=== PATIENT | female | born 1950 ===

== ENCOUNTER 2017-10-24 23:51 | Inpatient (IN) | payer MEDICARE ==
--- NOTE | 2017-10-25 01:18 | ED PDOC ---
HPI: Chest Pain Chief Complaint (Nursing): Chest Pain Chief Complaint (Provider): chest pain History Per: Patient History/Exam Limitations: no limitations Onset/Duration Of Symptoms: Days (2), Waxing/Waning Current Symptoms Are (Timing): Still Present Quality: Tightness, Pressure Additional Complaint(s): 67 y/o female presents with midsternal chest pressure x 2 days. Patient states pain radiates up in to her throat, and to mid upper back. Patient reports shortness of breath secondary to tightness sensation. Patient feels like there is "gas stuck" that she cannot get out. Patient also reports right leg redness/ swelling x 1 week; states her legs are always swollen but right one is larger. Denies fever, vomiting, palpitations, changes in bowel movements, recent travel. Past Medical History Reviewed: Historical Data, Nursing Documentation, Vital Signs Vital Signs: Last Vital Signs Temp 98 F 10/30/17 00:18 Pulse 69 10/30/17 00:18 Resp 18 10/30/17 00:18 BP 153/84 H 10/30/17 00:18 Pulse Ox 96 10/30/17 00:18 - Medical History PMH: Back Problems, Fibromyalgia, GERD, Hepatitis (autoimmune), HTN, Seizures, Chronic Pain Other PMH: Lupus - Family History Family History: States: No Known Family Hx - Living Arrangements Living Arrangements: With Family - Home Medications Home Medications: Ambulatory Orders Medication Instructions Recorded Albuterol Sulfate [Proair Hfa] 2 inh INH PRN PRN 10/25/17 Cholecalciferol [Vitamin D 1000 IU] 1 cap PO DAILY 10/25/17 Ergocalciferol (Vitamin D2) 1 cap PO QWK 10/25/17 [Vitamin D2] Fluticasone/Salmeterol 250/50 2 inh INH Q12 10/25/17 [Advair Diskus 250/50] Hydroxychloroquine Sulfate 200 mg PO BID 10/25/17 [Plaquenil] Lactulose [Generlac] 30 ml PO HS 10/25/17 Levothyroxine [Synthroid] 100 mcg PO DAILY 10/25/17 Lidocaine 5% [Lidoderm] 1 patch TD PRN PRN 10/25/17 Losartan [Cozaar] 100 mg PO DAILY 10/25/17 OXcarbazepine [Trileptal] 1.5 tab PO HS 10/25/17 Oxycodone HCl [Oxycontin] 10 mg PO Q12 10/25/17 Pantoprazole Sodium [Protonix] 40 mg PO HS 10/25/17 Thiamine HCl [B-1] 100 mg PO DAILY 10/25/17 Triamterene/Hydrochlorothiazid 0.5 tab PO DAILY 10/25/17 [Maxzide 75 mg-50 mg Tablet] Zolpidem Tartrate [Ambien Cr] 12.5 mg PO HS 10/25/17 oxyCODONE [oxyCODONE Immediate 15 mg PO Q6 PRN 10/25/17 Release Tab] - Allergies Allergies/Adverse Reactions: Allergies Allergy/AdvReac Type Severity Reaction Status Date / Time aspirin Allergy RASH Verified 10/25/17 05:29 bupropion Allergy see below Verified 10/25/17 00:11 [From Wellbutrin SR] ciprofloxacin [From Cipro] Allergy RASH Verified 10/25/17 00:09 clopidogrel [From Plavix] Allergy bruising Verified 10/25/17 00:16 ibuprofen [From Motrin] Allergy RASH Verified 10/25/17 00:03 phenytoin [From Dilantin] Allergy RASH Verified 10/25/17 00:15 quetiapine [From Seroquel] AdvReac see below Verified 10/25/17 00:13 tramadol [From Ultram] AdvReac see below Verified 10/25/17 00:14 Review of Systems ROS Statement: Except As Marked, All Systems Reviewed And Found Negative ENT: Positive for: Throat Pain Cardiovascular: Positive for: Chest Pain Musculoskeletal: Positive for: Back Pain Physical Exam - Reviewed Nursing Documentation Reviewed: Yes Vital Signs Reviewed: Yes - Physical Exam Appears: Positive for: Well, Non-toxic, Uncomfortable (anxious) Head Exam: Positive for: ATRAUMATIC, NORMAL INSPECTION, NORMOCEPHALIC Skin: Positive for: Normal Color Eye Exam: Positive for: Normal appearance ENT: Positive for: Normal ENT Inspection Cardiovascular/Chest: Positive for: Regular Rate, Rhythm Respiratory: Positive for: Normal Breath Sounds Gastrointestinal/Abdominal: Positive for: Normal Exam Back: Positive for: Normal Inspection Extremity: Positive for: Normal ROM, Swelling (bilateral lower extremity edema, R>L. RLE with erythema extending from above ankle to midway up leg, warm to touch. + central scabbed abrasion noted) Neurologic/Psych: Positive for: Alert, Oriented - Laboratory Results Result Diagrams: 10/27/17 07:14 10/29/17 16:00 - ECG ECG: Positive for: Viewed By Me (reviewed by ED attending) ECG Rhythm: Positive for: Sinus Rhythm O2 Sat by Pulse Oximetry: 98 - Radiology X-Ray: Viewed By Me X-Ray Interpretation: Cardiomegaly - Progress ED Course And Treament: labs, ekg, chest xray, CT dissection study EXAM: CT Angiography Chest Without and With Intravenous Contrast CT Angiography Abdomen and Pelvis Without and With Intravenous Contrast CLINICAL HISTORY: 67 years old, female; Pain; Abdominal pain; Acute; Chest pain; Additional info: Chest/back pain TECHNIQUE: Axial computed tomographic angiography images of the chest, abdomen and pelvis without and with intravenous contrast using CT angiography protocol. All CT scans at this facility use one or more dose reduction techniques, viz.: automated exposure control; ma/kV adjustment per patient size (including targeted exams where dose is matched to indication; i.e. head); or iterative reconstruction technique. Coronal and sagittal reformatted images were created and reviewed. CONTRAST: 95 mL of VISIPAQUE 320 administered intravenously. COMPARISON: No relevant prior studies available. FINDINGS: VASCULATURE: Aorta: Bovine aortic arch. The aorta demonstrates calcified plaque and is mildly ectatic but normal in caliber. The aorta is normal in caliber and there are no graham-aortic collections. No aortic aneurysm. No dissection. Pulmonary arteries: No CT evidence for pulmonary embolus. Great vessels of aortic arch: No acute findings. No dissection. No arterial occlusion or significant stenosis. Celiac trunk and mesenteric arteries: No acute findings. No occlusion or significant stenosis. Renal arteries: There are 2 right renal arteries. Iliac arteries: No acute findings. No occlusion or significant stenosis. CHESTLungs: There is right lower lobe pleural-based nodule seen on image 44 series 602 and left lower lobe pleural-based nodule seen on image 63 series 6. Right upper lobe calcified granuloma. There is bibasilar atelectasis. Pleural space: Unremarkable. No significant effusion. No pneumothorax. Heart: Small amount of fluid in the superior pericardial recess. Cardiomegaly. There is right azygoesophageal recess hypodense nodule measuring 2.0 cm likely representing benign etiology likely pericardial cyst. ABDOMEN: Liver: Unremarkable. No mass. Gallbladder and bile ducts: Unremarkable. No calcified stones. No ductal dilation. Pancreas: Unremarkable. No ductal dilation. No mass. Spleen: Unremarkable. No splenomegaly. Adrenals: Unremarkable. No mass. Kidneys and ureters: Bilaterally symmetric nephrograms. Distended bilateral extrarenal pelvis. Stomach and bowel: Diverticulosis. No obstruction. No mucosal thickening.Nonspecific gastric thickening likely due to under distention. Correlation with clinical data is recommended if gastritis is suspected. Appendix: Normal appendix. PELVIS: Bladder: Bladder distention. Correlation with patient's voiding status is recommended. No stones. Reproductive: Uterus is seen. CHEST, ABDOMEN and PELVIS: Intraperitoneal space: Unremarkable. No significant fluid collection. No free air. Bones/joints: There is degenerative gas within the bilateral SI joints. L4-5 and L5-S1 vacuum degenerative disc disease. No acute fracture. No dislocation. Soft tissues: There is a fat-containing umbilical hernia. Nonspecific posterior back edema. Lymph nodes: Subcentimeter para-aortic lymph nodes. IMPRESSION: 1. No CT evidence for pulmonary embolus. No evidence of aortic dissection or aortic aneurysm. Patient educated on findings, will place in observation telemetry for chest pain to r/out ACS. Patient refusing aspirin, states she has had "bad reactions " to aspirin and aspirin-containing medications in past IV clindamycin ordered for cellulitis Disposition - Clinical Impression Clinical Impression: Chest pain, Cellulitis of right lower extremity - Disposition Disposition Time: 05:16 Condition: FAIR
[2017-10-25 01:54] LABS: BASO # 0.1 K/uL (0.0-0.2); BASO % 1.2 % (0.0-2.0); EOS # 0.1 K/uL (0.0-0.7); EOS % 2.9 % (0.0-4.0); HEMOGLOBIN 12.4 g/dL (12.0-16.0); LYMPH # 0.8 K/uL (1.0-4.3); LYMPH % 19.6 % (20.0-40.0); MEAN CELL VOLUME 84.5 fl (81.0-99.0); MEAN CORPUSCULAR HEMOGLOBIN 27.3 pg (27.0-31.0); MEAN CORPUSCULAR HGB CONC 32.3 g/dL (33.0-37.0); MEAN PLATELET VOLUME 7.7 fl (7.2-11.7); MONO # 0.5 K/uL (0.0-0.8); MONO % 12.2 % (0.0-10.0); NEUT # 2.8 K/uL (1.8-7.0); NEUT % 64.1 % (50.0-75.0); RBC 4.53 Mil/uL (3.80-5.20); RED CELL DISTRIBUTION WIDTH 14.4 % (11.5-14.5); WHITE BLOOD COUNT 4.3 K/uL (4.8-10.8)
[2017-10-25 01:56] LABS: URINE BILIRUBIN NEGATIVE (NEGATIVE); URINE BLOOD NEGATIVE (NEGATIVE); URINE CLARITY CLEAR (Clear); URINE COLOR COLORLESS (YELLOW); URINE GLUCOSE (UA) NEG (Normal); URINE LEUKOCYTE ESTERASE NEG Leu/uL (Negative); URINE PROTEIN NEGATIVE (NEGATIVE); URINE UROBILINOGEN 0.2-1.0 mg/dL (0.2-1.0)
[2017-10-25 02:03] LABS: ALB/GLOB RATIO 1.1 (1.0-2.1); ALT/SGPT 33 U/L (9-52); AST/SGOT 40 U/L (14-36); BLOOD UREA NITROGEN 14 mg/dl (7-17); CALCIUM 8.6 mg/dL (8.4-10.2); GFR AFRICAN-AMERICAN > 60; GFR NON-AFRICAN AMERICAN > 60; LIPASE 35 U/L (23-300)
[2017-10-25] MEDS ORDERED: Alum-Mag Hydrox-Simethicone Susp (30 mL) PO STA (02:06)
[2017-10-25 02:10] LABS: PARTIAL THROMBOPLASTIN TIME 31.8 Seconds (25.6-37.1); PROTHROMBIN TIME 10.7 Seconds (9.8-13.1)
[2017-10-25 02:16] LABS: B-TYPE NATRIURETIC PEPTIDE 316 pg/ml (0-900)
[2017-10-25 02:16] LABS: VENOUS BLOOD GAS BASE EXCESS 4.8 mmol/L (0.0-2.0); VENOUS BLOOD GAS PCO2 51 mmHg (40-60); VENOUS BLOOD GAS PO2 27 mm/Hg (30-55); VENOUS BLOOD PH 7.39 (7.32-7.43)
[2017-10-25] MEDS ORDERED: Iodixanol 320 MG/ML 100 ML BOTTLE IV ONE (03:01)
[2017-10-25] MEDS ORDERED: Clindamycin 600mg/50ml NS 600 MG/50 ML BAG IVPB STA (04:56)
--- NOTE | 2017-10-25 05:37 | CP.PCM.HP ---
<Lakhwinder Hawkins - Last Filed: 10/25/17 06:31> History of Present Illness - History of Present Illness History of Present Illness: 67 y/o female with extensive medical hx presents for evaluation of chest pain and SOB as well as right leg pain, redness, swelling. CP symptoms started yesterday morning upon awaking. Pain was located substernally and radiated to her mid-back. She also reports a sensation in her neck which she said is similiar to her GERD symptoms in the past. No inciting event. Pain is 5/10, constant. Pt took her pain meds at 7:30pm w/o improvement. CP is associated with nausea. No association with exertion or position. Denies left arm/jaw pain , diaphoresis, vomiting. Pt also complains of right low leg pain that started 1 week ago w/o inciting or traumatic event. Pt noticed worsening swelling in her right LE, worse than baseline, with associated redness and warmth. Denies fever/ chills. PMD: Fadi FamilyHx: unknown Present on Admission - Present on Admission Any Indicators Present on Admission: No History of DVT/PE: No History of Uncontrolled Diabetes: No Review of Systems - Constitutional Constitutional: absent: As Per HPI, Anorexia, Chills, Daytime Sleepiness, Excessive Sweating, Fatigue, Fever, Frequent Falls, Headache, Increased Appetite , Lethargy, Malaise, Night Sweats, Snoring, Sleep Apnea, Weight Gain, Weight Loss, Weakness, Other - EENT Eyes: absent: As Per HPI, Blind Spots, Blurred Vision, Change in Vision, Decreased Night Vision, Diplopia, Discharge, Dry Eye, Exophthalmos, Floaters, Irritation, Itchy Eyes, Loss of Peripheral Vision, Pain, Photophobia, Requires Corrective Lenses, Sees Flashes, Spots in Vision, Tunnel Vision, Other Visual Disturbances, Loss of Vision, Other Ears: absent: As Per HPI, Decreased Hearing, Ear Discharge, Ear Pain, Tinnitus, Abnormal Hearing, Disequilibrium, Dizziness, Other Nose/Mouth/Throat: absent: As Per HPI, Epistaxis, Nasal Congestion, Nasal Discharge, Nasal Obstruction, Nasal Trauma, Nose Pain, Post Nasal Drip, Sinus Pain, Sinus Pressure, Bleeding Gums, Change in Voice, Dental Pain, Dry Mouth, Dysphagia, Halitosis, Hoarsness, Lip Swelling, Mouth Lesions, Mouth Pain, Odynophagia, Sore Throat, Throat Swelling, Tongue Swelling, Facial Pain, Neck Pain, Neck Mass, Other - Cardiovascular Cardiovascular: As Per HPI, Chest Pain, Leg Edema. absent: Dyspnea on Exertion , Pain Radiating to Arm/Neck/Jaw, Rapid Heart Rate, Syncope - Respiratory Respiratory: Dyspnea. absent: As Per HPI, Cough, Hemoptysis, Dyspnea on Exertion, Wheezing, Snoring, Stridor, Pain on Inspiration, Chest Congestion, Excessive Mucous Production, Change in Mucous Color, Pain with Coughing, Other - Gastrointestinal Gastrointestinal: absent: As Per HPI, Abdominal Pain, Belching, Bloating, Change in Bowel Habits, Change in Stool Character, Coffee Ground Emesis, Constipation, Cramping, Diarrhea, Dyspepsia, Dysphagia, Early Satiety, Excessive Flatus, Fecal Incontinence, Heartburn, Hematemesis, Hematochezia, Loose Stools, Melena, Nausea, Odynophagia, Temesmus, Vomiting, Other - Integumentary Integumentary: absent: As Per HPI, Acne, Alopecia, Bleeding Lesions, Change in Hair, Change in Nails, Change in Pigmentation, Changing Lesions, Dry Skin, Erythema, Furuncle, Hirsutism, Lesions, New Lesions, Non-Healing Lesions, Photosensitivity, Pruritus, Rash, Skin Pain, Skin Ulcer, Sores, Striae, Swelling , Unusual Bruising, Wounds, Jaundice, Other Past Patient History - Past Social History Smoking Status: Never Smoked - CARDIAC Hx Hypertension: Yes - PULMONARY Hx Sleep Apnea: Yes Other/Comment: Hx Lung Nodules - NEUROLOGICAL Hx Seizures: Yes - RENAL Hx Chronic Kidney Disease: Yes Hx Kidney Stones: Yes - ENDOCRINE/METABOLIC Hx Hypothyroidism: Yes - HEMATOLOGICAL/ONCOLOGICAL Other/Comment: Hx Auto Immune Hepatitis. Hx Lupus - MUSCULOSKELETAL/RHEUMATOLOGICAL Hx Arthritis: Yes Hx Herniated Disk: Yes (Cervical and Lumbar) Hx Osteoporosis: Yes - GASTROINTESTINAL Hx Gastroesophageal Reflux: Yes - PSYCHIATRIC Hx Anxiety: Yes Hx Substance Use: No - SURGICAL HISTORY Hx Surgeries: Yes Other/Comment: Hx Bunionectomy - ANESTHESIA Hx Anesthesia: Yes Hx Anesthesia Reactions: No Hx Malignant Hyperthermia: No Meds Allergies/Adverse Reactions: Allergies Allergy/AdvReac Type Severity Reaction Status Date / Time aspirin Allergy RASH Verified 10/25/17 05:29 bupropion Allergy see below Verified 10/25/17 00:11 [From Wellbutrin SR] ciprofloxacin [From Cipro] Allergy RASH Verified 10/25/17 00:09 clopidogrel [From Plavix] Allergy bruising Verified 10/25/17 00:16 ibuprofen [From Motrin] Allergy RASH Verified 10/25/17 00:03 phenytoin [From Dilantin] Allergy RASH Verified 10/25/17 00:15 quetiapine [From Seroquel] AdvReac see below Verified 10/25/17 00:13 tramadol [From Ultram] AdvReac see below Verified 10/25/17 00:14 Physical Exam - Constitutional Appears: Non-toxic, No Acute Distress - Head Exam Head Exam: ATRAUMATIC, NORMOCEPHALIC - Eye Exam Eye Exam: EOMI, Normal appearance, PERRL Pupil Exam: NORMAL ACCOMODATION - ENT Exam ENT Exam: Mucous Membranes Moist, Normal Exam - Neck Exam Neck exam: Positive for: Normal Inspection - Respiratory Exam Respiratory Exam: Clear to Auscultation Bilateral, NORMAL BREATHING PATTERN. absent: Prolonged Expiratory Phase, Rales, Rhonchi, Wheezes - Cardiovascular Exam Cardiovascular Exam: REGULAR RHYTHM, RRR, +S1, +S2. absent: Bradycardia, Tachycardia, Gallop, Irregular Rhythm, JVD, Rubs, Systolic Murmur - GI/Abdominal Exam GI & Abdominal Exam: Normal Bowel Sounds, Soft. absent: Tenderness - Extremities Exam Extremities exam: Positive for: normal capillary refill, tenderness (right LE with erythema and tenderness at right lateral aspect. Warmer to touch when compared to left. ), pedal pulses present. Negative for: calf tenderness, normal inspection, pedal edema - Back Exam Back exam: absent: CVA tenderness (L), CVA tenderness (R) - Neurological Exam Neurological exam: Alert, CN II-XII Intact, Oriented x3, Reflexes Normal - Psychiatric Exam Psychiatric exam: Normal Affect, Normal Mood - Skin Skin Exam: Dry, Erythema, Intact, Warm Results - Vital Signs Recent Vital Signs: Last Vital Signs Temp 98.2 F 10/25/17 00:04 Pulse 88 10/25/17 04:02 Resp 18 10/25/17 02:22 BP 166/92 H 10/25/17 04:02 Pulse Ox 98 10/25/17 05:16 - Labs Result Diagrams: 10/25/17 01:40 10/25/17 01:40 Labs: Laboratory Results - last 24 hr 10/25/17 10/25/17 10/25/17 01:21 01:40 01:40 WBC 4.3 L RBC 4.53 Hgb 12.4 Hct 38.3 MCV 84.5 MCH 27.3 MCHC 32.3 L RDW 14.4 Plt Count 158 MPV 7.7 Neut % (Auto) 64.1 Lymph % (Auto) 19.6 L [place] % (Auto) 12.2 H Eos % (Auto) 2.9 Baso % (Auto) 1.2 Neut # (Auto) 2.8 Lymph # (Auto) 0.8 L [place] # (Auto) 0.5 Eos # (Auto) 0.1 Baso # (Auto) 0.1 ESR 18 PT INR APTT pO2 27 L VBG pH 7.39 VBG pCO2 51 VBG HCO3 27.6 VBG Total CO2 32.5 H VBG O2 Sat (Calc) 59.6 VBG Base Excess 4.8 H VBG Potassium 3.7 Sodium 130.0 L 133 Chloride 98.0 94 L Glucose 99 Lactate 0.9 FiO2 21.0 Potassium 3.9 Carbon Dioxide 30 Anion Gap 13 BUN 14 Creatinine 0.8 Est GFR ( Amer) > 60 Est GFR (Non-Af Amer) > 60 Random Glucose 106 H Calcium 8.6 Total Bilirubin 0.4 AST 40 H ALT 33 Alkaline Phosphatase 105 Troponin I < 0.0120 NT-Pro-B Natriuret Pep 316 Total Protein 7.6 Albumin 4.0 Globulin 3.6 Albumin/Globulin Ratio 1.1 Lipase 35 Venous Blood Potassium 3.7 Urine Color Urine Clarity Urine pH Ur Specific [place] Urine Protein Urine Glucose (UA) Urine Ketones Urine Blood Urine Nitrate Urine Bilirubin Urine Urobilinogen Ur Leukocyte Esterase Urine RBC (Auto) Urine Microscopic WBC 10/25/17 10/25/17 01:40 01:40 WBC RBC Hgb Hct MCV MCH MCHC RDW Plt Count MPV Neut % (Auto) Lymph % (Auto) [place] % (Auto) Eos % (Auto) Baso % (Auto) Neut # (Auto) Lymph # (Auto) [place] # (Auto) Eos # (Auto) Baso # (Auto) ESR PT 10.7 INR 1.0 APTT 31.8 pO2 VBG pH VBG pCO2 VBG HCO3 VBG Total CO2 VBG O2 Sat (Calc) VBG Base Excess VBG Potassium Sodium Chloride Glucose Lactate FiO2 Potassium Carbon Dioxide Anion Gap BUN Creatinine Est GFR ( Amer) Est GFR (Non-Af Amer) Random Glucose Calcium Total Bilirubin AST ALT Alkaline Phosphatase Troponin I NT-Pro-B Natriuret Pep Total Protein Albumin Globulin Albumin/Globulin Ratio Lipase Venous Blood Potassium Urine Color Colorless Urine Clarity Clear Urine pH 7.0 Ur Specific [place] 1.006 Urine Protein Negative Urine Glucose (UA) Neg Urine Ketones Negative Urine Blood Negative Urine Nitrate Negative Urine Bilirubin Negative Urine Urobilinogen 0.2-1.0 Ur Leukocyte Esterase Neg Urine RBC (Auto) < 1 Urine Microscopic WBC < 1 Assessment & Plan - Assessment and Plan (Free Text) Assessment: 67 y/o female with extensive medical history admitted for atypical chest pain to rule out ACS as well as suspected RLE cellulitis. Plan: 1) Atypical Chest Pain -rule out ACS -dissection study wnl -EKG no acute changes -Troponin I: <0.0120 -Pro-BNP: wnl -CBC/CMP: wnl -f/u troponins Q6H for 3 values -repeat EKG in the morning -cardiology consult with Dr. Gallo pending 2) RLE Cellulitis -CBC wnl -afebrile -dose of IV Clindamycin given in ED 3) Hypertension: -chronic -c/w home medications -monitor vitals 4) Lupus: -c/w home medications 5) Hypothyroidism -c/w home medications 6) Seizure Disorder: -Trileptal 450mg 7) Prophylaxis: -Lovenox 40mg SC QD 8) Diet: -heart healthy 9) Code Status -full code <Cecil Edwards - Last Filed: 10/25/17 09:38> Results - Vital Signs Recent Vital Signs: Last Vital Signs Temp 98.4 F 10/25/17 08:00 Pulse 59 L 10/25/17 08:00 Resp 20 10/25/17 08:00 BP 170/78 H 10/25/17 08:00 Pulse Ox 96 10/25/17 08:00 - Labs Result Diagrams: 10/25/17 01:40 10/25/17 01:40 Labs: Laboratory Results - last 24 hr 10/25/17 10/25/17 10/25/17 01:21 01:40 01:40 WBC 4.3 L RBC 4.53 Hgb 12.4 Hct 38.3 MCV 84.5 MCH 27.3 MCHC 32.3 L RDW 14.4 Plt Count 158 MPV 7.7 Neut % (Auto) 64.1 Lymph % (Auto) 19.6 L [place] % (Auto) 12.2 H Eos % (Auto) 2.9 Baso % (Auto) 1.2 Neut # (Auto) 2.8 Lymph # (Auto) 0.8 L [place] # (Auto) 0.5 Eos # (Auto) 0.1 Baso # (Auto) 0.1 ESR 18 PT INR APTT pO2 27 L VBG pH 7.39 VBG pCO2 51 VBG HCO3 27.6 VBG Total CO2 32.5 H VBG O2 Sat (Calc) 59.6 VBG Base Excess 4.8 H VBG Potassium 3.7 Sodium 130.0 L 133 Chloride 98.0 94 L Glucose 99 Lactate 0.9 FiO2 21.0 Potassium 3.9 Carbon Dioxide 30 Anion Gap 13 BUN 14 Creatinine 0.8 Est GFR ( Amer) > 60 Est GFR (Non-Af Amer) > 60 Random Glucose 106 H Calcium 8.6 Total Bilirubin 0.4 AST 40 H ALT 33 Alkaline Phosphatase 105 Troponin I < 0.0120 NT-Pro-B Natriuret Pep 316 Total Protein 7.6 Albumin 4.0 Globulin 3.6 Albumin/Globulin Ratio 1.1 Lipase 35 Venous Blood Potassium 3.7 Urine Color Urine Clarity Urine pH Ur Specific [place] Urine Protein Urine Glucose (UA) Urine Ketones Urine Blood Urine Nitrate Urine Bilirubin Urine Urobilinogen Ur Leukocyte Esterase Urine RBC (Auto) Urine Microscopic WBC 10/25/17 10/25/17 10/25/17 01:40 01:40 07:43 WBC RBC Hgb Hct MCV MCH MCHC RDW Plt Count MPV Neut % (Auto) Lymph % (Auto) [place] % (Auto) Eos % (Auto) Baso % (Auto) Neut # (Auto) Lymph # (Auto) [place] # (Auto) Eos # (Auto) Baso # (Auto) ESR PT 10.7 INR 1.0 APTT 31.8 pO2 VBG pH VBG pCO2 VBG HCO3 VBG Total CO2 VBG O2 Sat (Calc) VBG Base Excess VBG Potassium Sodium Chloride Glucose Lactate FiO2 Potassium Carbon Dioxide Anion Gap BUN Creatinine Est GFR ( Amer) Est GFR (Non-Af Amer) Random Glucose Calcium Total Bilirubin AST ALT Alkaline Phosphatase Troponin I 0.0140 NT-Pro-B Natriuret Pep Total Protein Albumin Globulin Albumin/Globulin Ratio Lipase Venous Blood Potassium Urine Color Colorless Urine Clarity Clear Urine pH 7.0 Ur Specific [place] 1.006 Urine Protein Negative Urine Glucose (UA) Neg Urine Ketones Negative Urine Blood Negative Urine Nitrate Negative Urine Bilirubin Negative Urine Urobilinogen 0.2-1.0 Ur Leukocyte Esterase Neg Urine RBC (Auto) < 1 Urine Microscopic WBC < 1 Attending/Attestation - Attestation I have personally seen and examined this patient.: Yes I have fully participated in the care of the patient.: Yes I have reviewed all pertinent clinical information: Yes
[2017-10-25] MEDS ORDERED: ALBUTEROL SULFATE INH PRN (06:25)
[2017-10-25] MEDS ORDERED: Lidocaine 5% Patch TD PRN (06:25)
[2017-10-25] MEDS ORDERED: Ergocalciferol 50,000 Intl Units Cap PO SCH (06:30)
[2017-10-25] MEDS ORDERED: Levothyroxine 100 MCG TAB PO SCH (06:30)
--- NOTE | 2017-10-25 07:36 | CARD ---
APPROVED REPORT EKG Measurement Heart [id number] <Conclusion> Normal sinus rhythm Minimal voltage criteria for LVH, may be normal variant Nonspecific ST abnormality Abnormal ECG
--- NOTE | 2017-10-25 08:45 | CT ---
PROCEDURE: CT Angiography Chest, Abdomen and Pelvis with and without intravenous contrast HISTORY: chest/back pain COMPARISON: None. TECHNIQUE: Contiguous axial images of the chest, abdomen and pelvis were obtained in the phase of aortic enhancement. A noncontrast enhanced CT of the chest was also obtained to evaluate for possible intramural thrombus. Coronal and sagittal reformats were generated. IV dose administered: 95 mL Visipaque 320 Radiation dose: Total exam DLP = 1228 mGy-cm. This CT exam was performed using one or more of the following dose reduction techniques: Automated exposure control, adjustment of the mA and/or kV according to patient size, and/or use of iterative reconstruction technique. FINDINGS: CT ANGIOGRAPHY OF THE CHEST WITH & WITHOUT CONTRAST: AORTA (CHEST AND ABDOMEN): The thoracic and abdominal aorta are unremarkable, without aneurysm, dissection or rupture. No intramural thrombus identified in the thoracic aorta on the non-contrast ct of the chest. Common origin of the brachiocephalic and left common carotid arteries. Direct origin of the left vertebral artery from the aortic arch. The celiac axis, superior mesenteric artery, inferior mesenteric artery and the renal arteries are widely patent. The pelvic arteries are unremarkable. LUNGS: Clear. Right lower lobe subpleural 8 mm nodule (series 7, image 62). Left lower lobe subpleural 4 mm nodule (series 7, image 63). No mass or consolidation. MEDIASTINUM: Small probable pericardial cyst in the azygoesophageal recess. Normal caliber aorta and pulmonary arterial trunk. No aortic dissection. Normal size heart. LYMPH NODES: Unremarkable. PLEURA: Unremarkable. No pneumothorax. No pleural fluid. BONES: Unremarkable. OTHER FINDINGS: None. CT ANGIOGRAPHY OF THE ABDOMEN AND PELVIS WITH CONTRAST: LIVER: Unremarkable. No gross lesion or ductal dilatation. GALLBLADDER AND BILE DUCTS: Unremarkable. PANCREAS: Atrophic. No gross lesion or ductal dilatation. SPLEEN: Unremarkable. ADRENALS: Unremarkable. No mass. KIDNEYS AND URETERS: Bilateral extrarenal pelvises. No hydronephrosis. No solid mass. VASCULATURE: Unremarkable. No aortic aneurysm. STOMACH AND BOWEL: Small hiatal hernia. No obstruction. No gross mural thickening. APPENDIX: Normal appendix. PERITONEUM: Unremarkable. No free fluid. No free air. LYMPH NODES: Unremarkable. No enlarged lymph nodes. BLADDER: Unremarkable. REPRODUCTIVE: Unremarkable. BONES: No acute fracture. OTHER FINDINGS: None. IMPRESSION: No evidence of aortic dissection or aneurysm. No central pulmonary embolism. 4-8 mm bilateral pulmonary nodules. CT follow-up is advised 3-6 months to assess for stability. Incidental findings as above.
[2017-10-25] MEDS ORDERED: Cholecalciferol 1,000 INTLU TAB PO SCH (09:00)
[2017-10-25] MEDS ORDERED: OXYCODONE HCL 10 MG PO SCH ×2 (09:00→17:00)
--- NOTE | 2017-10-25 09:28 | RAD ---
HISTORY: chest pain COMPARISON: Chest radiograph dated 01/29/2012 FINDINGS: LUNGS: No active pulmonary disease. PLEURA: No significant pleural effusion identified, no pneumothorax apparent. CARDIOVASCULAR: Atherosclerotic aortic calcifications. Cardiomediastinal silhouette stably enlarged. OSSEOUS STRUCTURES: Unchanged. VISUALIZED UPPER ABDOMEN: Normal. OTHER FINDINGS: None. IMPRESSION: No active disease.
[2017-10-25] MEDS ORDERED: Albuterol HFA 90 mcg/actuation (8 g) INH PRN (11:05)
[2017-10-25] MEDS: Ergocalciferol 50,000 Intl Units Cap PO SCH (12:28)
[2017-10-25] MEDS ORDERED: VITAMIN B1 100 MG PO SCH (13:15)
[2017-10-25] MEDS ORDERED: Patient's Own Med (Oxycodone [Oxycodone Immediate Release Tab] 15 mg) PO PRN (13:28)
[2017-10-25] MEDS: SYNTHROID 100 MCG PO SCH (14:00)
[2017-10-25] MEDS: PLAQUENIL 200 MG PO SCH ×3 (14:00→17:17)
[2017-10-25] MEDS: Enoxaparin 40 mg Syringe SC SCH (15:27)
--- NOTE | 2017-10-25 16:49 | CP.PCM.PN ---
<StanleyjulietRowena zhao - Last Filed: 10/25/17 18:11> Subjective - Date & Time of Evaluation Date of Evaluation: 10/25/17 Time of Evaluation: 07:40 - Subjective Subjective: Patient seen and evaluated at bedside; has concern over chest pain that brought her into ED (denies chest pain at this time), and about redness on right lower extremity (pruritic this am). Pt brought in all of her own home medications and prefers to take her own brand name medication, adamant about not taking generic medications. Objective - Vital Signs/Intake and Output Vital Signs (last 24 hours): Temp Pulse Resp BP Pulse Ox 98.4 F 67 16 165/81 H 96 10/25/17 16:42 10/25/17 16:42 10/25/17 16:42 10/25/17 16:42 10/25/17 16:42 - Medications Medications: Current Medications Enoxaparin Sodium (Lovenox) 40 mg SC DAILY [facility] PRN Reason: Protocol Last Admin: 10/25/17 15:27 Dose: Not Given Ergocalciferol (Drisdol 50,000 Intl Units Cap) 1 cap PO QWK [facility] Last Admin: 10/25/17 12:28 Dose: 1 cap Home Med (Patient's Own Medication) 1 unit PO HS [facility] Home Med (Zolpidem Tartrate [Ambien Cr]) 12.5 mg PO HS PRN PRN Reason: Sleep Home Med (Patient's Own Medication) 1 unit PO DAILY [facility] Home Med (Patient's Own Medication) 1 unit PO DAILY@0630 [facility] Home Med (Patient's Own Medication) 1 unit PO DAILY [facility] Home Med (Patient's Own Medication) 200 unit PO BID [facility] PRN Reason: Protocol Home Med (Patient's Own Medication) 2 unit INH Q6 PRN PRN Reason: Shortness of Breath Home Med (Oxycodone Hcl [Oxycontin]) 10 mg PO Q12 [facility] Home Med (Patient's Own Medication) 1 unit PO BID [facility] Home Med (Oxycodone [Oxycodone Immediate Release Tab]) 15 mg PO Q6 PRN PRN Reason: Pain, moderate (4-7) Lidocaine (Lidoderm) 1 ea TD DAILY PRN PRN Reason: neck/back pain Zinc Acetate/Diphenhydramine (Benadryl 1% Zinc Acetate -0.1%) 1 applic TOP Q8 PRN PRN Reason: Itching / Pruritus - Labs Labs: 10/25/17 01:40 10/25/17 01:40 PT 10.7 Seconds (9.8-13.1) 10/25/17 01:40 INR 1.0 (0.9-1.2) 10/25/17 01:40 APTT 31.8 Seconds (25.6-37.1) 10/25/17 01:40 - Constitutional Appears: Non-toxic - Eye Exam Eye Exam: Normal appearance - ENT Exam ENT Exam: Mucous Membranes Moist - Respiratory Exam Respiratory Exam: Clear to Ausculation Bilateral, NORMAL BREATHING PATTERN - Cardiovascular Exam Cardiovascular Exam: REGULAR RHYTHM, +S1, +S2 - GI/Abdominal Exam GI & Abdominal Exam: Soft, Normal Bowel Sounds - Extremities Exam Extremities Exam: absent: Calf Tenderness Additional comments: area of superficial erythema on lateral RLE, no warmth - Back Exam Back Exam: NORMAL INSPECTION - Neurological Exam Neurological Exam: Alert, Awake, Oriented x3 - Skin Skin Exam: Dry, Intact, Normal Color, Warm Additional comments: area of erythema on R leg, see "extremities" Assessment and Plan - Assessment and Plan (Free Text) Assessment: 67 y/o female with extensive medical history including lupus, seizure disorder, hypertension admitted for atypical chest pain to rule out ACS as well as suspected RLE cellulitis. Plan: 1) Atypical Chest Pain - Resolved - Troponin neg x3 - Dissection study wnl - EKG no acute changes - Pro-BNP: wnl - CBC/CMP: wnl - Cardiology consult pending 2) Contact dermatitis vs cellulitis - ID Dr. Garcia - does not believe this to be cellulitis, looks more like contact dermatitis - Topical benadryl PRN - Prednisone 40mg today 3) Hypertension: -chronic -c/w home medications -monitor vitals 4) Lupus: -c/w home medications 5) Hypothyroidism -c/w home medications 6) Seizure Disorder: - c/w home medication 7) Prophylaxis: -Lovenox 40mg SC QD 8) Diet: -heart healthy <Paolo Whelan - Last Filed: 10/29/17 06:51> Objective - Vital Signs/Intake and Output Vital Signs (last 24 hours): Temp Pulse Resp BP Pulse Ox 98.9 F 75 18 152/90 H 96 10/29/17 05:23 10/29/17 05:23 10/29/17 05:23 10/29/17 05:23 10/29/17 05:23 - Medications Medications: Current Medications Enoxaparin Sodium (Lovenox) 40 mg SC DAILY [facility] PRN Reason: Protocol Last Admin: 10/28/17 08:41 Dose: 40 mg Ergocalciferol (Drisdol 50,000 Intl Units Cap) 1 cap PO QWK [facility] Last Admin: 10/27/17 09:10 Dose: 1 cap Home Med (Patient's Own Medication) 1 unit PO HS [facility] Last Admin: 10/28/17 23:23 Dose: 1 unit Home Med (Zolpidem Tartrate [Ambien Cr]) 12.5 mg PO HS PRN PRN Reason: Sleep Last Admin: 10/28/17 23:52 Dose: 12.5 mg Home Med (Patient's Own Medication) 1 unit PO DAILY [facility] Last Admin: 10/28/17 08:42 Dose: 1 unit Home Med (Patient's Own Medication) 1 unit PO DAILY@0630 [facility] Last Admin: 10/29/17 06:31 Dose: 1 unit Home Med (Patient's Own Medication) 1 unit PO DAILY [facility] Last Admin: 10/28/17 08:42 Dose: 1 unit Home Med (Patient's Own Medication) 200 unit PO BID [facility] PRN Reason: Protocol Last Admin: 10/28/17 16:41 Dose: 200 unit Home Med (Patient's Own Medication) 2 unit INH Q6 PRN PRN Reason: Shortness of Breath Last Admin: 10/28/17 16:43 Dose: 2 unit Home Med (Patient's Own Medication) 1 unit PO BID [facility] Last Admin: 10/28/17 16:42 Dose: 1 unit Home Med (Oxycodone [Oxycodone Immediate Release Tab]) 15 mg PO Q6 PRN PRN Reason: Pain, moderate (4-7) Last Admin: 10/29/17 06:31 Dose: 15 mg Home Med (Oxycodone Hcl [Oxycontin]) 10 mg PO Q12@0900,2100 [facility] Last Admin: 10/28/17 21:18 Dose: 10 mg Hydrochlorothiazide (Microzide) 12.5 mg PO DAILY [facility] Last Admin: 10/28/17 08:42 Dose: 12.5 mg Lidocaine (Lidoderm) 1 ea TD DAILY PRN PRN Reason: neck/back pain Last Admin: 10/28/17 21:28 Dose: 1 ea Prednisone (Prednisone Tab) 40 mg PO DAILY [facility] Last Admin: 10/28/17 08:43 Dose: 40 mg Zinc Acetate/Diphenhydramine (Benadryl 1% Zinc Acetate -0.1%) 1 applic TOP Q8 PRN PRN Reason: Itching / Pruritus Last Admin: 10/28/17 22:13 Dose: 1 applic - Labs Labs: 10/27/17 07:14 10/29/17 04:20 PT 10.7 Seconds (9.8-13.1) 10/25/17 01:40 INR 1.0 (0.9-1.2) 10/25/17 01:40 APTT 31.8 Seconds (25.6-37.1) 10/25/17 01:40 Attending/Attestation - Attestation I have personally seen and examined this patient.: Yes I have fully participated in the care of the patient.: Yes I have reviewed all pertinent clinical information, including history, physical exam and plan: Yes
[2017-10-25] MEDS: Patient's Own Med (Oxycodone [Oxycodone Immediate Release Tab] 15 mg) PO PRN (17:12)
[2017-10-25] MEDS: TRILEPTAL 300 MG PO SCH (17:14)
[2017-10-25] MEDS: VITAMIN B1 100 MG PO SCH (17:15)
--- NOTE | 2017-10-25 17:49 | CP.PCM.PN ---
Subjective - Date & Time of Evaluation Date of Evaluation: 10/25/17 Time of Evaluation: 17:43 - Subjective Subjective: I D NOTE HAS MULTIPLE PATCHES OF ERYTHEMA DRYNESS ,AND PRURITIS ON RLE, BACK ,SIDE. POSSDIBLY IS CONTACT,HYPERSENSITIVITY REACTION WOULD GIVE TRIAL ON SYSTEMIC STEROIDS. Objective - Vital Signs/Intake and Output Vital Signs (last 24 hours): Temp Pulse Resp BP Pulse Ox 98.4 F 67 16 165/81 H 96 10/25/17 16:42 10/25/17 16:42 10/25/17 16:42 10/25/17 16:42 10/25/17 16:42 - Medications Medications: Current Medications Enoxaparin Sodium (Lovenox) 40 mg SC DAILY [facility] PRN Reason: Protocol Last Admin: 10/25/17 15:27 Dose: Not Given Ergocalciferol (Drisdol 50,000 Intl Units Cap) 1 cap PO QWK [facility] Last Admin: 10/25/17 12:28 Dose: 1 cap Home Med (Patient's Own Medication) 1 unit PO HS [facility] Home Med (Zolpidem Tartrate [Ambien Cr]) 12.5 mg PO HS PRN PRN Reason: Sleep Home Med (Patient's Own Medication) 1 unit PO DAILY [facility] Home Med (Patient's Own Medication) 1 unit PO DAILY@0630 [facility] Last Admin: 10/25/17 14:00 Dose: Not Given Home Med (Patient's Own Medication) 1 unit PO DAILY [facility] Last Admin: 10/25/17 17:15 Dose: 1 unit Home Med (Patient's Own Medication) 200 unit PO BID [facility] PRN Reason: Protocol Last Admin: 10/25/17 17:17 Dose: 200 unit Home Med (Patient's Own Medication) 2 unit INH Q6 PRN PRN Reason: Shortness of Breath Home Med (Patient's Own Medication) 1 unit PO BID [facility] Last Admin: 10/25/17 17:14 Dose: 1 unit Home Med (Oxycodone [Oxycodone Immediate Release Tab]) 15 mg PO Q6 PRN PRN Reason: Pain, moderate (4-7) Last Admin: 10/25/17 17:12 Dose: 15 mg Home Med (Oxycodone Hcl [Oxycontin]) 10 mg PO Q12@0900,2100 [facility] Lidocaine (Lidoderm) 1 ea TD DAILY PRN PRN Reason: neck/back pain Zinc Acetate/Diphenhydramine (Benadryl 1% Zinc Acetate -0.1%) 1 applic TOP Q8 PRN PRN Reason: Itching / Pruritus - Labs Labs: 10/25/17 01:40 10/25/17 01:40 PT 10.7 Seconds (9.8-13.1) 10/25/17 01:40 INR 1.0 (0.9-1.2) 10/25/17 01:40 APTT 31.8 Seconds (25.6-37.1) 10/25/17 01:40
[2017-10-25] MEDS: OXYCODONE HCL 10 MG PO SCH (20:54)
[2017-10-25] MEDS: Diphenhydramine 1% CREAM TOP PRN (20:59)
[2017-10-25] MEDS: PROTONIX 40 MG PO SCH (21:00)
[2017-10-26] MEDS: SYNTHROID 100 MCG PO SCH (08:40)
[2017-10-26] MEDS: Enoxaparin 40 mg Syringe SC SCH ×2 (08:42→17:43)
[2017-10-26] MEDS: COZAAR 100 MG PO SCH (08:43)
[2017-10-26] MEDS: TRILEPTAL 300 MG PO SCH ×2 (08:44→17:41)
[2017-10-26] MEDS: PLAQUENIL 200 MG PO SCH ×2 (08:44→17:41)
[2017-10-26] MEDS: VITAMIN B1 100 MG PO SCH (08:45)
[2017-10-26] MEDS: OXYCODONE HCL 10 MG PO SCH ×2 (09:06→22:49)
[2017-10-26] MEDS: Patient's Own Med (Oxycodone [Oxycodone Immediate Release Tab] 15 mg) PO PRN (09:09)
[2017-10-26] MEDS: Diphenhydramine 1% CREAM TOP PRN (11:25)
--- NOTE | 2017-10-26 11:37 | CP.PCM.CON ---
History of Present Illness - History of Present Illness History of Present Illness: 67 year old female with SLE, admitted with chest pain and lower extremity edema , erythema, pt r/o [place] with 3 negative troponin. Baseline EKG NSR with no acute st-t changes. Pt concerned about admitting issue chest pain which has occurred intermittently during hospitalization. Past Patient History - Past Medical History & Family History Past Medical History?: No - Past Social History Smoking Status: Never Smoked - CARDIAC Hx Hypertension: Yes - PULMONARY Hx Sleep Apnea: Yes Other/Comment: Hx Lung Nodules - NEUROLOGICAL Hx Seizures: Yes - RENAL Hx Chronic Kidney Disease: Yes Hx Kidney Stones: Yes - ENDOCRINE/METABOLIC Hx Hypothyroidism: Yes - HEMATOLOGICAL/ONCOLOGICAL Other/Comment: Hx Auto Immune Hepatitis. Hx Lupus - MUSCULOSKELETAL/RHEUMATOLOGICAL Hx Arthritis: Yes Hx Falls: No Hx Herniated Disk: Yes (Cervical and Lumbar) Hx Osteoporosis: Yes - GASTROINTESTINAL Hx Gastroesophageal Reflux: Yes - PSYCHIATRIC Hx Anxiety: Yes Hx Substance Use: No - SURGICAL HISTORY Hx Surgeries: Yes Other/Comment: Hx Bunionectomy - ANESTHESIA Hx Anesthesia: Yes Hx Anesthesia Reactions: No Hx Malignant Hyperthermia: No Meds Allergies/Adverse Reactions: Allergies Allergy/AdvReac Type Severity Reaction Status Date / Time aspirin Allergy RASH Verified 10/25/17 05:29 bupropion Allergy see below Verified 10/25/17 00:11 [From Wellbutrin SR] ciprofloxacin [From Cipro] Allergy RASH Verified 10/25/17 00:09 clopidogrel [From Plavix] Allergy bruising Verified 10/25/17 00:16 ibuprofen [From Motrin] Allergy RASH Verified 10/25/17 00:03 phenytoin [From Dilantin] Allergy RASH Verified 10/25/17 00:15 quetiapine [From Seroquel] AdvReac see below Verified 10/25/17 00:13 tramadol [From Ultram] AdvReac see below Verified 10/25/17 00:14 - Medications Medications: Current Medications Enoxaparin Sodium (Lovenox) 40 mg SC DAILY [facility] PRN Reason: Protocol Last Admin: 10/26/17 08:42 Dose: Not Given Ergocalciferol (Drisdol 50,000 Intl Units Cap) 1 cap PO QWK [facility] Last Admin: 10/25/17 12:28 Dose: 1 cap Home Med (Patient's Own Medication) 1 unit PO HS [facility] Last Admin: 10/25/17 21:00 Dose: 1 unit Home Med (Zolpidem Tartrate [Ambien Cr]) 12.5 mg PO HS PRN PRN Reason: Sleep Last Admin: 10/25/17 23:40 Dose: 12.5 mg Home Med (Patient's Own Medication) 1 unit PO DAILY [facility] Last Admin: 10/26/17 08:43 Dose: 1 unit Home Med (Patient's Own Medication) 1 unit PO DAILY@0630 [facility] Last Admin: 10/26/17 08:40 Dose: 1 unit Home Med (Patient's Own Medication) 1 unit PO DAILY [facility] Last Admin: 10/26/17 08:45 Dose: 1 unit Home Med (Patient's Own Medication) 200 unit PO BID [facility] PRN Reason: Protocol Last Admin: 10/26/17 08:44 Dose: 200 unit Home Med (Patient's Own Medication) 2 unit INH Q6 PRN PRN Reason: Shortness of Breath Home Med (Patient's Own Medication) 1 unit PO BID [facility] Last Admin: 10/26/17 08:44 Dose: 1 unit Home Med (Oxycodone [Oxycodone Immediate Release Tab]) 15 mg PO Q6 PRN PRN Reason: Pain, moderate (4-7) Last Admin: 10/26/17 09:09 Dose: 15 mg Home Med (Oxycodone Hcl [Oxycontin]) 10 mg PO Q12@0900,2100 [facility] Last Admin: 10/26/17 09:06 Dose: 10 mg Lidocaine (Lidoderm) 1 ea TD DAILY PRN PRN Reason: neck/back pain Prednisone (Prednisone Tab) 40 mg PO ONCE ONE Stop: 10/26/17 20:01 Zinc Acetate/Diphenhydramine (Benadryl 1% Zinc Acetate -0.1%) 1 applic TOP Q8 PRN PRN Reason: Itching / Pruritus Last Admin: 10/26/17 11:25 Dose: 1 applic Physical Exam - Head Exam Head Exam: NORMAL INSPECTION - Neck Exam Neck exam: Positive for: Normal Inspection - Respiratory Exam Respiratory Exam: Clear to Auscultation Bilateral - Cardiovascular Exam Cardiovascular Exam: REGULAR RHYTHM - GI/Abdominal Exam GI & Abdominal Exam: Normal Bowel Sounds - Extremities Exam Extremities exam: Positive for: pedal edema Results - Vital Signs Recent Vital Signs: Last Vital Signs Temp 98.1 F 10/26/17 08:18 Pulse 66 10/26/17 09:00 Resp 20 10/26/17 08:18 BP 157/88 H 10/26/17 08:18 Pulse Ox 95 10/26/17 08:18 - Labs Result Diagrams: 10/25/17 01:40 10/25/17 01:40 Labs: Laboratory Results - last 24 hr 10/25/17 15:43 Troponin I < 0.0120 Assessment & Plan - Assessment and Plan (Free Text) Assessment: 67 year old female with past medical history hypertension, SLE, admitted with chest pain, R/o [place], intermittent chest pain during hospitalization and worsening pedal edema over last several weeks Recommendations: #1 Echocardiogram assess LV function given pedal edema #2 Myocardial perfusion stress test to evaluate chest pain symptoms Patient will have to stay as inpatient for stress test to be done on Sunday am
--- NOTE | 2017-10-26 13:07 | CARD ---
APPROVED REPORT EXAM: Two-dimensional and M-mode echocardiogram with Doppler and color Doppler. Other Information Quality : GoodRhythm : NSR INDICATION Peripheral Edema Chest Pain 2D DIMENSIONS IVSd0.79 (0.7-1.1cm)LVDd4.37 (3.9-5.9cm) LVOT Diameter2.24 (1.8-2.4cm)PWd0.91 (0.7-1.1cm) IVSs1.65 (0.8-1.2cm)LVDs2.84 (2.5-4.0cm) FS (%) 34.9 %PWs1.25 (0.8-1.2cm) M-Mode DIMENSIONS Left Atrium (MM)3.06 (2.5-4.0cm)IVSd1.18 (0.7-1.1cm) Aortic Root3.00 (2.2-3.7cm)LVDd5.47 (4.0-5.6cm) Aortic Cusp Exc.2.00 (1.5-2.0cm)PWd1.03 (0.7-1.1cm) IVSs1.76 cmFS (%) 52 % LVDs2.62 (2.0-3.8cm)PWs1.53 cm Mitral Valve MV E Ddfeltyg09.2cm/sMV DECEL [id number] A Vlddqspj98.4cm/s MV UYR27uqG/A ratio0.8MVA (PHT)3.33cm2 TDI Lateral E' Peak V8.64cm/sMedial E' Peak V7.33cm/sE/Lateral E'7.7 E/Medial E'9.0 Pulmonary Valve PV Peak Wumgmoej577.5cm/s Tricuspid Valve TR Peak Ilnlthvm367se/sRAP [id number] Peak Gr.15mmHg [id number] LEFT VENTRICLE The left ventricle is normal size. There is normal left ventricular wall thickness. Left ventricle systolic function is normal. The Ejection Fraction is 65-70%. There is normal LV segmental wall motion. Transmitral Doppler flow pattern is Grade I-abnormal relaxation pattern. RIGHT VENTRICLE The right ventricle is normal size. There is normal right ventricular wall thickness. The right ventricular systolic function is normal. ATRIA The left atrium size is normal. The right atrium size is normal. AORTIC VALVE The aortic valve is normal in structure. No aortic regurgitation is present. There is no aortic valvular stenosis. MITRAL VALVE The mitral valve is normal in structure. There is no evidence of mitral valve prolapse. There is no mitral valve stenosis. Mitral regurgitation is trace to mild. TRICUSPID VALVE The tricuspid valve is normal in structure. There is trace to mild tricuspid regurgitation. Right ventricular systolic pressure is estimated at 25 mmHg. There is no pulmonary hypertension. PULMONIC VALVE The pulmonary valve is normal in structure. There is no pulmonic valvular regurgitation. GREAT VESSELS The aortic root is normal in size. The IVC is normal in size and collapses >50% with inspiration. PERICARDIAL EFFUSION The pericardium appears normal. <Conclusion> The left ventricle is normal size. There is normal left ventricular wall thickness. There is normal LV segmental wall motion. Left ventricle systolic function is normal. The Ejection Fraction is 65-70%. Transmitral Doppler flow pattern is Grade I-abnormal relaxation pattern.
--- NOTE | 2017-10-26 13:58 | CP.PCM.PN ---
<Rowena Flood - Last Filed: 10/26/17 15:06> Subjective - Date & Time of Evaluation Date of Evaluation: 10/26/17 Time of Evaluation: 07:20 - Subjective Subjective: Pt seen and eval at bedside; no acute events overnight. Pending intelligence agent eval today. Objective - Vital Signs/Intake and Output Vital Signs (last 24 hours): Temp Pulse Resp BP Pulse Ox 98.1 F 66 20 157/88 H 95 10/26/17 08:18 10/26/17 09:00 10/26/17 08:18 10/26/17 08:18 10/26/17 08:18 - Medications Medications: Current Medications Enoxaparin Sodium (Lovenox) 40 mg SC DAILY [facility] PRN Reason: Protocol Last Admin: 10/26/17 08:42 Dose: Not Given Ergocalciferol (Drisdol 50,000 Intl Units Cap) 1 cap PO QWK [facility] Last Admin: 10/25/17 12:28 Dose: 1 cap Home Med (Patient's Own Medication) 1 unit PO HS [facility] Last Admin: 10/25/17 21:00 Dose: 1 unit Home Med (Zolpidem Tartrate [Ambien Cr]) 12.5 mg PO HS PRN PRN Reason: Sleep Last Admin: 10/25/17 23:40 Dose: 12.5 mg Home Med (Patient's Own Medication) 1 unit PO DAILY [facility] Last Admin: 10/26/17 08:43 Dose: 1 unit Home Med (Patient's Own Medication) 1 unit PO DAILY@0630 [facility] Last Admin: 10/26/17 08:40 Dose: 1 unit Home Med (Patient's Own Medication) 1 unit PO DAILY [facility] Last Admin: 10/26/17 08:45 Dose: 1 unit Home Med (Patient's Own Medication) 200 unit PO BID [facility] PRN Reason: Protocol Last Admin: 10/26/17 08:44 Dose: 200 unit Home Med (Patient's Own Medication) 2 unit INH Q6 PRN PRN Reason: Shortness of Breath Home Med (Patient's Own Medication) 1 unit PO BID [facility] Last Admin: 10/26/17 08:44 Dose: 1 unit Home Med (Oxycodone [Oxycodone Immediate Release Tab]) 15 mg PO Q6 PRN PRN Reason: Pain, moderate (4-7) Last Admin: 10/26/17 09:09 Dose: 15 mg Home Med (Oxycodone Hcl [Oxycontin]) 10 mg PO Q12@0900,2100 [facility] Last Admin: 10/26/17 09:06 Dose: 10 mg Hydrochlorothiazide (Microzide) 12.5 mg PO DAILY [facility] Lidocaine (Lidoderm) 1 ea TD DAILY PRN PRN Reason: neck/back pain Prednisone (Prednisone Tab) 40 mg PO ONCE ONE Stop: 10/26/17 20:01 Zinc Acetate/Diphenhydramine (Benadryl 1% Zinc Acetate -0.1%) 1 applic TOP Q8 PRN PRN Reason: Itching / Pruritus Last Admin: 10/26/17 11:25 Dose: 1 applic - Labs Labs: 10/25/17 01:40 10/25/17 01:40 PT 10.7 Seconds (9.8-13.1) 10/25/17 01:40 INR 1.0 (0.9-1.2) 10/25/17 01:40 APTT 31.8 Seconds (25.6-37.1) 10/25/17 01:40 - Constitutional Appears: Toxic, No Acute Distress - Head Exam Head Exam: NORMAL INSPECTION - Eye Exam Eye Exam: Normal appearance - ENT Exam ENT Exam: Mucous Membranes Moist - Respiratory Exam Respiratory Exam: Clear to Ausculation Bilateral, NORMAL BREATHING PATTERN - Cardiovascular Exam Cardiovascular Exam: REGULAR RHYTHM, +S1, +S2 - GI/Abdominal Exam GI & Abdominal Exam: Soft, Normal Bowel Sounds - Extremities Exam Extremities Exam: absent: Calf Tenderness Additional comments: erythematous patch of skin on R lateral leg, improved from yesterday - Back Exam Back Exam: NORMAL INSPECTION - Neurological Exam Neurological Exam: Alert, Awake, Oriented x3 - Skin Skin Exam: Dry, Intact, Warm Assessment and Plan - Assessment and Plan (Free Text) Assessment: 67 y/o female with extensive medical history including lupus, seizure disorder, hypertension admitted for atypical chest pain to rule out ACS. Plan: 1) Atypical Chest Pain - Troponin neg x3 - Dissection study wnl - EKG no acute changes - Pro-BNP: wnl - CBC/CMP: wnl - Cardiology consult Dr. Emery - recommend echo and stress test 2) Contact dermatitis vs cellulitis - ID Dr. Garcia - does not believe this to be cellulitis, looks more like contact dermatitis - Topical benadryl PRN - Prednisone 40mg today 3) Hypertension: -chronic -c/w home medications -monitor vitals 4) Lupus: -c/w home medications 5) Hypothyroidism -c/w home medications 6) Seizure Disorder: - c/w home medication 7) Prophylaxis: -Lovenox 40mg SC QD 8) Diet: -heart healthy <Cecil Edwards - Last Filed: 10/31/17 06:49> Objective - Vital Signs/Intake and Output Vital Signs (last 24 hours): Temp Pulse Resp BP Pulse Ox 98.2 F 66 18 136/81 98 10/31/17 04:43 10/31/17 04:43 10/31/17 04:43 10/31/17 04:43 10/31/17 04:43 Intake and Output: 10/30/17 10/31/17 18:59 06:59 Intake Total 760 Balance 760 - Medications Medications: Current Medications Enoxaparin Sodium (Lovenox) 40 mg SC DAILY [facility] PRN Reason: Protocol Last Admin: 10/30/17 08:41 Dose: 40 mg Ergocalciferol (Drisdol 50,000 Intl Units Cap) 1 cap PO QWK [facility] Last Admin: 10/27/17 09:10 Dose: 1 cap Home Med (Patient's Own Medication) 1 unit PO HS [facility] Last Admin: 10/30/17 21:08 Dose: 1 unit Home Med (Zolpidem Tartrate [Ambien Cr]) 12.5 mg PO HS PRN PRN Reason: Sleep Last Admin: 10/31/17 00:38 Dose: 12.5 mg Home Med (Patient's Own Medication) 1 unit PO DAILY [facility] Last Admin: 10/30/17 11:45 Dose: 1 unit Home Med (Patient's Own Medication) 1 unit PO DAILY@0630 [facility] Last Admin: 10/31/17 05:42 Dose: 1 unit Home Med (Patient's Own Medication) 1 unit PO DAILY [facility] Last Admin: 10/30/17 11:45 Dose: 1 unit Home Med (Patient's Own Medication) 200 unit PO BID [facility] PRN Reason: Protocol Last Admin: 10/30/17 16:30 Dose: 200 unit Home Med (Patient's Own Medication) 2 unit INH Q6 PRN PRN Reason: Shortness of Breath Last Admin: 10/28/17 16:43 Dose: 2 unit Home Med (Patient's Own Medication) 1 unit PO BID [facility] Last Admin: 10/30/17 16:31 Dose: 1 unit Home Med (Oxycodone [Oxycodone Immediate Release Tab]) 15 mg PO Q6 PRN PRN Reason: Pain, moderate (4-7) Last Admin: 10/30/17 15:15 Dose: 15 mg Home Med (Oxycodone Hcl [Oxycontin]) 10 mg PO Q12@0900,2100 [facility] Last Admin: 10/30/17 21:51 Dose: 10 mg Lactulose (Enulose) 10 gm PO DAILY PRN PRN Reason: Constipation Lidocaine (Lidoderm) 1 ea TD DAILY PRN PRN Reason: neck/back pain Last Admin: 10/29/17 09:35 Dose: 1 ea Zinc Acetate/Diphenhydramine (Benadryl 1% Zinc Acetate -0.1%) 1 applic TOP Q8 PRN PRN Reason: Itching / Pruritus Last Admin: 10/29/17 23:26 Dose: 1 applic - Labs Labs: 10/27/17 07:14 10/31/17 04:20 PT 10.7 Seconds (9.8-13.1) 10/25/17 01:40 INR 1.0 (0.9-1.2) 10/25/17 01:40 APTT 31.8 Seconds (25.6-37.1) 10/25/17 01:40 Attending/Attestation - Attestation I have personally seen and examined this patient.: Yes I have fully participated in the care of the patient.: Yes I have reviewed all pertinent clinical information, including history, physical exam and plan: Yes
[2017-10-26] MEDS: PROTONIX 40 MG PO SCH (22:34)
[2017-10-27] MEDS: SYNTHROID 100 MCG PO SCH (06:26)
[2017-10-27 08:01] LABS: HEMOGLOBIN 13.5 g/dL (12.0-16.0); MEAN CELL VOLUME 84.5 fl (81.0-99.0); MEAN CORPUSCULAR HEMOGLOBIN 28.2 pg (27.0-31.0); MEAN CORPUSCULAR HGB CONC 33.4 g/dL (33.0-37.0); RBC 4.8 Mil/uL (3.80-5.20); RED CELL DISTRIBUTION WIDTH 14.6 % (11.5-14.5)
[2017-10-27 08:12] LABS: ALB/GLOB RATIO 1.1 (1.0-2.1); ALT/SGPT 34 U/L (9-52); AST/SGOT 33 U/L (14-36); BLOOD UREA NITROGEN 15 mg/dl (7-17); CALCIUM 8.8 mg/dL (8.4-10.2); GFR AFRICAN-AMERICAN > 60; GFR NON-AFRICAN AMERICAN > 60
[2017-10-27] MEDS: Enoxaparin 40 mg Syringe SC SCH (09:06)
[2017-10-27] MEDS: Diphenhydramine 1% CREAM TOP PRN (09:08)
[2017-10-27] MEDS: Ergocalciferol 50,000 Intl Units Cap PO SCH (09:10)
[2017-10-27] MEDS: COZAAR 100 MG PO SCH (09:11)
[2017-10-27] MEDS: PLAQUENIL 200 MG PO SCH ×2 (09:12→17:44)
[2017-10-27] MEDS: TRILEPTAL 300 MG PO SCH ×2 (09:14→17:45)
[2017-10-27] MEDS: PROAIR INH PRN (09:14)
[2017-10-27] MEDS: VITAMIN B1 100 MG PO SCH (09:15)
[2017-10-27] MEDS: Patient's Own Med (Oxycodone [Oxycodone Immediate Release Tab] 15 mg) PO PRN (09:45)
[2017-10-27] MEDS: OXYCODONE HCL 10 MG PO SCH ×2 (09:45→21:36)
--- NOTE | 2017-10-27 16:08 | CP.PCM.PN ---
Subjective - Date & Time of Evaluation Date of Evaluation: 10/27/17 Time of Evaluation: 09:00 - Subjective Subjective: No acute overnight events. Pt seen and evaluated this morning at the bedside. Pt denies cp, sob, palpitations. Objective - Vital Signs/Intake and Output Vital Signs (last 24 hours): Temp Pulse Resp BP Pulse Ox 97.9 F 80 20 166/85 H 95 10/27/17 12:28 10/27/17 12:28 10/27/17 12:28 10/27/17 12:28 10/27/17 12:28 Intake and Output: 10/27/17 10/27/17 06:59 18:59 Intake Total 1200 Balance 1200 - Medications Medications: Current Medications Enoxaparin Sodium (Lovenox) 40 mg SC DAILY [facility] PRN Reason: Protocol Last Admin: 10/27/17 09:06 Dose: 40 mg Ergocalciferol (Drisdol 50,000 Intl Units Cap) 1 cap PO QWK [facility] Last Admin: 10/27/17 09:10 Dose: 1 cap Home Med (Patient's Own Medication) 1 unit PO HS [facility] Last Admin: 10/26/17 22:34 Dose: 1 unit Home Med (Zolpidem Tartrate [Ambien Cr]) 12.5 mg PO HS PRN PRN Reason: Sleep Last Admin: 10/27/17 02:29 Dose: 12.5 mg Home Med (Patient's Own Medication) 1 unit PO DAILY [facility] Last Admin: 10/27/17 09:11 Dose: 1 unit Home Med (Patient's Own Medication) 1 unit PO DAILY@0630 [facility] Last Admin: 10/27/17 06:26 Dose: 1 unit Home Med (Patient's Own Medication) 1 unit PO DAILY [facility] Last Admin: 10/27/17 09:15 Dose: 1 unit Home Med (Patient's Own Medication) 200 unit PO BID [facility] PRN Reason: Protocol Last Admin: 10/27/17 09:12 Dose: 200 unit Home Med (Patient's Own Medication) 2 unit INH Q6 PRN PRN Reason: Shortness of Breath Last Admin: 10/27/17 09:14 Dose: 2 unit Home Med (Patient's Own Medication) 1 unit PO BID [facility] Last Admin: 10/27/17 09:14 Dose: 1 unit Home Med (Oxycodone [Oxycodone Immediate Release Tab]) 15 mg PO Q6 PRN PRN Reason: Pain, moderate (4-7) Last Admin: 10/27/17 09:45 Dose: 15 mg Home Med (Oxycodone Hcl [Oxycontin]) 10 mg PO Q12@0900,2100 [facility] Last Admin: 10/27/17 09:45 Dose: 10 mg Hydrochlorothiazide (Microzide) 12.5 mg PO DAILY [facility] Last Admin: 10/27/17 09:09 Dose: 12.5 mg Lidocaine (Lidoderm) 1 ea TD DAILY PRN PRN Reason: neck/back pain Prednisone (Prednisone Tab) 40 mg PO DAILY [facility] Last Admin: 10/27/17 09:16 Dose: 40 mg Zinc Acetate/Diphenhydramine (Benadryl 1% Zinc Acetate -0.1%) 1 applic TOP Q8 PRN PRN Reason: Itching / Pruritus Last Admin: 10/27/17 09:08 Dose: 1 applic - Labs Labs: 10/27/17 07:14 10/27/17 07:14 PT 10.7 Seconds (9.8-13.1) 10/25/17 01:40 INR 1.0 (0.9-1.2) 10/25/17 01:40 APTT 31.8 Seconds (25.6-37.1) 10/25/17 01:40 - Constitutional Appears: Well, Non-toxic, No Acute Distress - Eye Exam Eye Exam: EOMI - ENT Exam ENT Exam: Mucous Membranes Moist - Respiratory Exam Respiratory Exam: Clear to Ausculation Bilateral. absent: Rales, Wheezes - Cardiovascular Exam Cardiovascular Exam: REGULAR RHYTHM, +S1, +S2. absent: Murmur - GI/Abdominal Exam GI & Abdominal Exam: Soft. absent: Distended, Tenderness, Hernia - Neurological Exam Neurological Exam: Alert, Awake, Oriented x3 - Psychiatric Exam Psychiatric exam: Normal Affect Assessment and Plan - Assessment and Plan (Free Text) Assessment: 67 y/o female with extensive medical history including lupus, seizure disorder, hypertension admitted for atypical chest pain to rule out ACS. Plan: 1) Atypical Chest Pain - Troponin neg x3 - Dissection study wnl - EKG no acute changes - Pro-BNP: wnl - CBC/CMP: wnl - Cardiology consult Dr. Emery - recommend echo and stress test 2) Contact dermatitis vs cellulitis - ID Dr. Garcia - does not believe this to be cellulitis, looks more like contact dermatitis - Topical benadryl PRN - Prednisone 40mg today 3) Hypertension: -chronic -c/w home medications -monitor vitals 4) Lupus: -c/w home medications 5) Hypothyroidism -c/w home medications 6) Seizure Disorder: - c/w home medication 7) Prophylaxis: -Lovenox 40mg SC QD 8) Diet: -heart healthy
[2017-10-27] MEDS: PROTONIX 40 MG PO SCH (21:36)
[2017-10-28] MEDS: SYNTHROID 100 MCG PO SCH (05:58)
[2017-10-28] MEDS: Enoxaparin 40 mg Syringe SC SCH (08:41)
[2017-10-28] MEDS: OXYCODONE HCL 10 MG PO SCH ×2 (08:41→21:18)
[2017-10-28] MEDS: COZAAR 100 MG PO SCH (08:42)
[2017-10-28] MEDS: VITAMIN B1 100 MG PO SCH (08:42)
[2017-10-28] MEDS: TRILEPTAL 300 MG PO SCH ×2 (08:42→16:42)
[2017-10-28] MEDS: PLAQUENIL 200 MG PO SCH ×2 (08:42→16:41)
--- NOTE | 2017-10-28 10:37 | CP.PCM.PN ---
Subjective - Date & Time of Evaluation Date of Evaluation: 10/28/17 Time of Evaluation: 09:50 - Subjective Subjective: Patient seen and evaluated at bedside today; reported that overnight she had a headache that was relieved with tylenol and with placing an ice pack on her neck. No complaints of chest pain at this time. Otherwise comfortable with no new acute issues. Objective - Vital Signs/Intake and Output Vital Signs (last 24 hours): Temp Pulse Resp BP Pulse Ox 98.5 F 75 20 172/85 H 96 10/28/17 08:00 10/28/17 08:00 10/28/17 08:00 10/28/17 08:00 10/28/17 08:00 - Medications Medications: Current Medications Enoxaparin Sodium (Lovenox) 40 mg SC DAILY [facility] PRN Reason: Protocol Last Admin: 10/28/17 08:41 Dose: 40 mg Ergocalciferol (Drisdol 50,000 Intl Units Cap) 1 cap PO QWK [facility] Last Admin: 10/27/17 09:10 Dose: 1 cap Home Med (Patient's Own Medication) 1 unit PO HS [facility] Last Admin: 10/27/17 21:36 Dose: 1 unit Home Med (Zolpidem Tartrate [Ambien Cr]) 12.5 mg PO HS PRN PRN Reason: Sleep Last Admin: 10/28/17 00:44 Dose: 12.5 mg Home Med (Patient's Own Medication) 1 unit PO DAILY [facility] Last Admin: 10/28/17 08:42 Dose: 1 unit Home Med (Patient's Own Medication) 1 unit PO DAILY@0630 [facility] Last Admin: 10/28/17 05:58 Dose: 1 unit Home Med (Patient's Own Medication) 1 unit PO DAILY [facility] Last Admin: 10/28/17 08:42 Dose: 1 unit Home Med (Patient's Own Medication) 200 unit PO BID [facility] PRN Reason: Protocol Last Admin: 10/28/17 08:42 Dose: 200 unit Home Med (Patient's Own Medication) 2 unit INH Q6 PRN PRN Reason: Shortness of Breath Last Admin: 10/27/17 09:14 Dose: 2 unit Home Med (Patient's Own Medication) 1 unit PO BID [facility] Last Admin: 10/28/17 08:42 Dose: 1 unit Home Med (Oxycodone [Oxycodone Immediate Release Tab]) 15 mg PO Q6 PRN PRN Reason: Pain, moderate (4-7) Last Admin: 10/27/17 09:45 Dose: 15 mg Home Med (Oxycodone Hcl [Oxycontin]) 10 mg PO Q12@0900,2100 [facility] Last Admin: 10/28/17 08:41 Dose: 10 mg Hydrochlorothiazide (Microzide) 12.5 mg PO DAILY [facility] Last Admin: 10/28/17 08:42 Dose: 12.5 mg Lidocaine (Lidoderm) 1 ea TD DAILY PRN PRN Reason: neck/back pain Prednisone (Prednisone Tab) 40 mg PO DAILY [facility] Last Admin: 10/28/17 08:43 Dose: 40 mg Zinc Acetate/Diphenhydramine (Benadryl 1% Zinc Acetate -0.1%) 1 applic TOP Q8 PRN PRN Reason: Itching / Pruritus Last Admin: 10/27/17 09:08 Dose: 1 applic - Labs Labs: 10/27/17 07:14 10/27/17 07:14 PT 10.7 Seconds (9.8-13.1) 10/25/17 01:40 INR 1.0 (0.9-1.2) 10/25/17 01:40 APTT 31.8 Seconds (25.6-37.1) 10/25/17 01:40 - Constitutional Appears: No Acute Distress - Head Exam Head Exam: NORMAL INSPECTION - Eye Exam Eye Exam: Normal appearance - ENT Exam ENT Exam: Mucous Membranes Moist - Neck Exam Neck Exam: Full ROM - Respiratory Exam Respiratory Exam: Clear to Ausculation Bilateral, NORMAL BREATHING PATTERN - Cardiovascular Exam Cardiovascular Exam: REGULAR RHYTHM, +S1, +S2 - GI/Abdominal Exam GI & Abdominal Exam: Soft, Normal Bowel Sounds. absent: Tenderness - Extremities Exam Extremities Exam: absent: Calf Tenderness - Neurological Exam Neurological Exam: Alert, Awake - Psychiatric Exam Psychiatric exam: Normal Mood - Skin Skin Exam: Dry, Warm Assessment and Plan - Assessment and Plan (Free Text) Assessment: 67 y/o female with extensive medical history including lupus, seizure disorder, hypertension admitted for atypical chest pain to rule out ACS. Plan: # Atypical Chest Pain - Troponin neg x3 - Dissection study wnl - EKG no acute changes - Pro-BNP: wnl - CBC/CMP: wnl - Cardiology consult Dr. Emery - recommend echo and stress test; pending for tomorrow # Headache - Relief with tylenol 650mg - Can use home med lidoderm patch as well # Contact dermatitis vs cellulitis - ID Dr. Garcia - does not believe this to be cellulitis, looks more like contact dermatitis - Topical benadryl PRN - Prednisone 40mg today # Hypertension: - Chronic - C/w home medications - Heart Healthy Diet - monitor vitals # Lupus: - C/w home medications # Hypothyroidism - C/w home medications # Seizure Disorder: - C/w home medication # Prophylaxis: - Lovenox 40mg SC QD
[2017-10-28] MEDS: Diphenhydramine 1% CREAM TOP PRN ×2 (10:58→22:13)
[2017-10-28] MEDS: Patient's Own Med (Oxycodone [Oxycodone Immediate Release Tab] 15 mg) PO PRN (16:38)
[2017-10-28] MEDS: PROAIR INH PRN (16:43)
[2017-10-28] MEDS: Lidocaine 5% Patch TD PRN (21:28)
[2017-10-28] MEDS: PROTONIX 40 MG PO SCH (23:23)
[2017-10-29] MEDS: SYNTHROID 100 MCG PO SCH (06:31)
[2017-10-29] MEDS: Patient's Own Med (Oxycodone [Oxycodone Immediate Release Tab] 15 mg) PO PRN ×3 (06:31→21:07)
[2017-10-29 06:33] LABS: ALB/GLOB RATIO 1.1 (1.0-2.1); ALBUMIN 3.6 g/dL (3.5-5.0); ALT/SGPT 27 U/L (9-52); AST/SGOT 32 U/L (14-36); BLOOD UREA NITROGEN 24 mg/dl (7-17); CALCIUM 8.2 mg/dL (8.4-10.2); GFR AFRICAN-AMERICAN > 60; GFR NON-AFRICAN AMERICAN > 60
[2017-10-29 09:11] LABS: ALB/GLOB RATIO 1.1 (1.0-2.1); ALBUMIN 4.2 g/dL (3.5-5.0); ALT/SGPT 36 U/L (9-52); AST/SGOT 35 U/L (14-36); BLOOD UREA NITROGEN 23 mg/dl (7-17); CALCIUM 8.5 mg/dL (8.4-10.2); GFR AFRICAN-AMERICAN > 60; GFR NON-AFRICAN AMERICAN > 60
[2017-10-29] MEDS: OXYCODONE HCL 10 MG PO SCH ×2 (09:28→21:08)
[2017-10-29] MEDS: VITAMIN B1 100 MG PO SCH (09:33)
[2017-10-29] MEDS: TRILEPTAL 300 MG PO SCH ×2 (09:33→17:32)
[2017-10-29] MEDS: COZAAR 100 MG PO SCH (09:34)
[2017-10-29] MEDS: PLAQUENIL 200 MG PO SCH ×2 (09:34→17:32)
[2017-10-29] MEDS: Enoxaparin 40 mg Syringe SC SCH (09:35)
[2017-10-29] MEDS: Lidocaine 5% Patch TD PRN (09:35)
[2017-10-29] MEDS ORDERED: Potassium Chloride 20 mEq ER Tab PO ONE (10:00)
--- NOTE | 2017-10-29 10:24 | CP.PCM.PN ---
<Rowena Flood - Last Filed: 10/29/17 17:14> Subjective - Date & Time of Evaluation Date of Evaluation: 10/29/17 Time of Evaluation: 07:35 - Subjective Subjective: Pt seen and eval at bedside with attending. Pt supposed to undergo stress test today but due to low K (3.0), test will be done tomorrow after K repletion today. No new physical complaints. Objective - Vital Signs/Intake and Output Vital Signs (last 24 hours): Temp Pulse Resp BP Pulse Ox 98.4 F 70 18 160/81 H 95 10/29/17 07:54 10/29/17 07:54 10/29/17 07:54 10/29/17 07:54 10/29/17 07:54 - Medications Medications: Current Medications Enoxaparin Sodium (Lovenox) 40 mg SC DAILY [facility] PRN Reason: Protocol Last Admin: 10/29/17 09:35 Dose: 40 mg Ergocalciferol (Drisdol 50,000 Intl Units Cap) 1 cap PO QWK [facility] Last Admin: 10/27/17 09:10 Dose: 1 cap Home Med (Patient's Own Medication) 1 unit PO HS [facility] Last Admin: 10/28/17 23:23 Dose: 1 unit Home Med (Zolpidem Tartrate [Ambien Cr]) 12.5 mg PO HS PRN PRN Reason: Sleep Last Admin: 10/28/17 23:52 Dose: 12.5 mg Home Med (Patient's Own Medication) 1 unit PO DAILY [facility] Last Admin: 10/29/17 09:34 Dose: 1 unit Home Med (Patient's Own Medication) 1 unit PO DAILY@0630 [facility] Last Admin: 10/29/17 06:31 Dose: 1 unit Home Med (Patient's Own Medication) 1 unit PO DAILY [facility] Last Admin: 10/29/17 09:33 Dose: 1 unit Home Med (Patient's Own Medication) 200 unit PO BID [facility] PRN Reason: Protocol Last Admin: 10/29/17 09:34 Dose: 200 unit Home Med (Patient's Own Medication) 2 unit INH Q6 PRN PRN Reason: Shortness of Breath Last Admin: 10/28/17 16:43 Dose: 2 unit Home Med (Patient's Own Medication) 1 unit PO BID [facility] Last Admin: 10/29/17 09:33 Dose: 1 unit Home Med (Oxycodone [Oxycodone Immediate Release Tab]) 15 mg PO Q6 PRN PRN Reason: Pain, moderate (4-7) Last Admin: 10/29/17 06:31 Dose: 15 mg Home Med (Oxycodone Hcl [Oxycontin]) 10 mg PO Q12@0900,2100 [facility] Last Admin: 10/29/17 09:28 Dose: 10 mg Lidocaine (Lidoderm) 1 ea TD DAILY PRN PRN Reason: neck/back pain Last Admin: 10/29/17 09:35 Dose: 1 ea Prednisone (Prednisone Tab) 40 mg PO DAILY [facility] Last Admin: 10/29/17 09:34 Dose: 40 mg Zinc Acetate/Diphenhydramine (Benadryl 1% Zinc Acetate -0.1%) 1 applic TOP Q8 PRN PRN Reason: Itching / Pruritus Last Admin: 10/28/17 22:13 Dose: 1 applic - Labs Labs: 10/27/17 07:14 10/29/17 08:30 PT 10.7 Seconds (9.8-13.1) 10/25/17 01:40 INR 1.0 (0.9-1.2) 10/25/17 01:40 APTT 31.8 Seconds (25.6-37.1) 10/25/17 01:40 - Constitutional Appears: Non-toxic, No Acute Distress - Head Exam Head Exam: NORMAL INSPECTION - Eye Exam Eye Exam: Normal appearance - ENT Exam ENT Exam: Mucous Membranes Moist - Respiratory Exam Respiratory Exam: Clear to Ausculation Bilateral, NORMAL BREATHING PATTERN. absent: Respiratory Distress - Cardiovascular Exam Cardiovascular Exam: REGULAR RHYTHM, +S1, +S2 - GI/Abdominal Exam GI & Abdominal Exam: Soft, Normal Bowel Sounds - Extremities Exam Extremities Exam: Normal Capillary Refill. absent: Calf Tenderness - Back Exam Back Exam: NORMAL INSPECTION - Neurological Exam Neurological Exam: Alert, Awake, Oriented x3 - Skin Skin Exam: Dry, Warm Assessment and Plan - Assessment and Plan (Free Text) Assessment: 67 y/o female with extensive medical history including lupus, seizure disorder, hypertension admitted for atypical chest pain to rule out ACS. Hypokalemic today. Plan: # Atypical Chest Pain - Troponin neg x3 - Dissection study wnl - EKG on admission no acute changes - Pro-BNP: wnl - Cardiology consult Dr. Emery - recommend echo (completed) and stress test - was supposed to be done today but due to pt hypokalemia pending for tomorrow # Hypokalemia - replete today w/ 40 mEq PO K-dur - recheck in pm # Headache - Relief with tylenol 650mg - Can use home med lidoderm patch as well # Contact dermatitis vs cellulitis - ID Dr. Garcia - does not believe this to be cellulitis, looks more like contact dermatitis - Topical benadryl PRN # Hypertension: - Chronic - C/w home medications - Avoid diuretics - Heart Healthy Diet - monitor vitals # Lupus: - C/w home medications # Hypothyroidism - C/w home medications # Seizure Disorder: - C/w home medication # Prophylaxis: - Lovenox 40mg SC QD <Cecil Edwards - Last Filed: 10/31/17 06:58> Objective - Vital Signs/Intake and Output Vital Signs (last 24 hours): Temp Pulse Resp BP Pulse Ox 98.2 F 66 18 136/81 98 10/31/17 04:43 10/31/17 04:43 10/31/17 04:43 10/31/17 04:43 10/31/17 04:43 Intake and Output: 10/30/17 10/31/17 18:59 06:59 Intake Total 760 Balance 760 - Medications Medications: Current Medications Enoxaparin Sodium (Lovenox) 40 mg SC DAILY [facility] PRN Reason: Protocol Last Admin: 10/30/17 08:41 Dose: 40 mg Ergocalciferol (Drisdol 50,000 Intl Units Cap) 1 cap PO QWK [facility] Last Admin: 10/27/17 09:10 Dose: 1 cap Home Med (Patient's Own Medication) 1 unit PO HS [facility] Last Admin: 10/30/17 21:08 Dose: 1 unit Home Med (Zolpidem Tartrate [Ambien Cr]) 12.5 mg PO HS PRN PRN Reason: Sleep Last Admin: 10/31/17 00:38 Dose: 12.5 mg Home Med (Patient's Own Medication) 1 unit PO DAILY [facility] Last Admin: 10/30/17 11:45 Dose: 1 unit Home Med (Patient's Own Medication) 1 unit PO DAILY@0630 [facility] Last Admin: 10/31/17 05:42 Dose: 1 unit Home Med (Patient's Own Medication) 1 unit PO DAILY [facility] Last Admin: 10/30/17 11:45 Dose: 1 unit Home Med (Patient's Own Medication) 200 unit PO BID [facility] PRN Reason: Protocol Last Admin: 10/30/17 16:30 Dose: 200 unit Home Med (Patient's Own Medication) 2 unit INH Q6 PRN PRN Reason: Shortness of Breath Last Admin: 10/28/17 16:43 Dose: 2 unit Home Med (Patient's Own Medication) 1 unit PO BID [facility] Last Admin: 10/30/17 16:31 Dose: 1 unit Home Med (Oxycodone [Oxycodone Immediate Release Tab]) 15 mg PO Q6 PRN PRN Reason: Pain, moderate (4-7) Last Admin: 10/30/17 15:15 Dose: 15 mg Home Med (Oxycodone Hcl [Oxycontin]) 10 mg PO Q12@0900,2100 [facility] Last Admin: 10/30/17 21:51 Dose: 10 mg Lactulose (Enulose) 10 gm PO DAILY PRN PRN Reason: Constipation Lidocaine (Lidoderm) 1 ea TD DAILY PRN PRN Reason: neck/back pain Last Admin: 10/29/17 09:35 Dose: 1 ea Zinc Acetate/Diphenhydramine (Benadryl 1% Zinc Acetate -0.1%) 1 applic TOP Q8 PRN PRN Reason: Itching / Pruritus Last Admin: 10/29/17 23:26 Dose: 1 applic - Labs Labs: 10/27/17 07:14 10/31/17 04:20 PT 10.7 Seconds (9.8-13.1) 10/25/17 01:40 INR 1.0 (0.9-1.2) 10/25/17 01:40 APTT 31.8 Seconds (25.6-37.1) 10/25/17 01:40 Attending/Attestation - Attestation I have personally seen and examined this patient.: Yes I have fully participated in the care of the patient.: Yes I have reviewed all pertinent clinical information, including history, physical exam and plan: Yes
--- NOTE | 2017-10-29 14:40 | CP.PCM.PN ---
Subjective - Date & Time of Evaluation Date of Evaluation: 10/29/17 Time of Evaluation: 13:00 - Subjective Subjective: THE PATIENT IS A 67 YEAR OLD FEMALE WHO I HAVE SEEN IN MY OFFICE PRACTICE MANY YEARS AGO FOR HYPERTENSION AND CHEST PAIN. SHE HAD A NEGATIVE STRESS TEST BACK THEN. SHE ALSO HAS A HISTORY OF SLE, AUTOIMMUNE HEPATITIS, FIBROMYALGIA, GERDS , RECENT WEIGHT GAIN AND SLEEP APNEA. SHE WAS PRESENTLY ADMITTED FOR CHEST PAIN RADIATING TO THE NECK AND BACK AND SOB. SHE HAD A CT SCAN THAT WAS NEGATIVE FOR AN AORTIC DISSECTION OR PE. DUE TO HER CHEST PAIN IT WAS DECIDED THAT SHE SHOULD STAY IN THE HOSPITAL FOR A PHARMACOLOGICAL STRESS TEST AND IT WAS POSTPONED TODAY DUE TO A POTASSIUM OF 3.O AND WILL BE DONE TOMORROW AFTER POTASSIUM REPLACEMENT. SHE STILL HAS MILD CHEST PAIN BUT ALSO HAS CHEST WALL TENDERNESS. Objective - Vital Signs/Intake and Output Vital Signs (last 24 hours): Temp Pulse Resp BP Pulse Ox 97.4 F L 65 18 170/99 H 97 10/29/17 12:30 10/29/17 12:30 10/29/17 12:30 10/29/17 12:30 10/29/17 12:30 - Medications Medications: Current Medications Enoxaparin Sodium (Lovenox) 40 mg SC DAILY [facility] PRN Reason: Protocol Last Admin: 10/29/17 09:35 Dose: 40 mg Ergocalciferol (Drisdol 50,000 Intl Units Cap) 1 cap PO QWK [facility] Last Admin: 10/27/17 09:10 Dose: 1 cap Home Med (Patient's Own Medication) 1 unit PO HS [facility] Last Admin: 10/28/17 23:23 Dose: 1 unit Home Med (Zolpidem Tartrate [Ambien Cr]) 12.5 mg PO HS PRN PRN Reason: Sleep Last Admin: 10/28/17 23:52 Dose: 12.5 mg Home Med (Patient's Own Medication) 1 unit PO DAILY [facility] Last Admin: 10/29/17 09:34 Dose: 1 unit Home Med (Patient's Own Medication) 1 unit PO DAILY@0630 [facility] Last Admin: 10/29/17 06:31 Dose: 1 unit Home Med (Patient's Own Medication) 1 unit PO DAILY [facility] Last Admin: 10/29/17 09:33 Dose: 1 unit Home Med (Patient's Own Medication) 200 unit PO BID [facility] PRN Reason: Protocol Last Admin: 10/29/17 09:34 Dose: 200 unit Home Med (Patient's Own Medication) 2 unit INH Q6 PRN PRN Reason: Shortness of Breath Last Admin: 10/28/17 16:43 Dose: 2 unit Home Med (Patient's Own Medication) 1 unit PO BID [facility] Last Admin: 10/29/17 09:33 Dose: 1 unit Home Med (Oxycodone [Oxycodone Immediate Release Tab]) 15 mg PO Q6 PRN PRN Reason: Pain, moderate (4-7) Last Admin: 10/29/17 12:48 Dose: 15 mg Home Med (Oxycodone Hcl [Oxycontin]) 10 mg PO Q12@0900,2100 [facility] Last Admin: 10/29/17 09:28 Dose: 10 mg Lidocaine (Lidoderm) 1 ea TD DAILY PRN PRN Reason: neck/back pain Last Admin: 10/29/17 09:35 Dose: 1 ea Prednisone (Prednisone Tab) 40 mg PO DAILY [facility] Last Admin: 10/29/17 09:34 Dose: 40 mg Zinc Acetate/Diphenhydramine (Benadryl 1% Zinc Acetate -0.1%) 1 applic TOP Q8 PRN PRN Reason: Itching / Pruritus Last Admin: 10/28/17 22:13 Dose: 1 applic - Labs Labs: 10/27/17 07:14 10/29/17 08:30 PT 10.7 Seconds (9.8-13.1) 10/25/17 01:40 INR 1.0 (0.9-1.2) 10/25/17 01:40 APTT 31.8 Seconds (25.6-37.1) 10/25/17 01:40 - Respiratory Exam Respiratory Exam: Clear to Ausculation Bilateral - Cardiovascular Exam Cardiovascular Exam: REGULAR RHYTHM, +S1, +S2 - Additional Findings Additional findings: EKG NSR, NSSTT CHANGES TROPONINS NORMAL K+ 3.0 TODAY Assessment and Plan - Assessment and Plan (Free Text) Assessment: CHEST PAIN WITH NECK AND BACK RADIATION HYPERTENSION ON ADMISSION WHEN SHE HAD PAIN AND WAS VERY UPSET BUT IT WAS NORMAL THIS MORNING AT 139/67 SLE AUTOIMMUNE HEPATITIS FIBROMYALGIA Plan: THE PATIENT IS ON LOVENOX KCL GIVEN AND BMP WILL BE REPEATED LATER TODAY FOR PHARMACOLOGICAL STRESS TEST IN AM NOTE: ASPIRIN AND CLOPIDOGREL WERE NOT GIVEN THE PATIENT IS ALLERGIC TO THESE MEDICINES
[2017-10-29 16:19] LABS: CALCIUM 8.4 mg/dL (8.4-10.2)
[2017-10-29] MEDS: PROTONIX 40 MG PO SCH (21:09)
[2017-10-29] MEDS ORDERED: Lactulose 10 gm/15 ml Syrup PO PRN (23:02)
[2017-10-29] MEDS: Diphenhydramine 1% CREAM TOP PRN (23:26)
[2017-10-30 05:46] LABS: BLOOD UREA NITROGEN 22 mg/dl (7-17); CALCIUM 8.3 mg/dL (8.4-10.2); GFR AFRICAN-AMERICAN > 60; GFR NON-AFRICAN AMERICAN > 60
[2017-10-30] MEDS: SYNTHROID 100 MCG PO SCH (07:01)
[2017-10-30] MEDS: OXYCODONE HCL 10 MG PO SCH ×3 (07:01→21:51)
--- NOTE | 2017-10-30 07:39 | CP.PCM.PN ---
<Rowena Flood - Last Filed: 10/30/17 19:28> Subjective - Date & Time of Evaluation Date of Evaluation: 10/30/17 Time of Evaluation: 07:20 - Subjective Subjective: Pt seen and evaluated this am; no acute events overnight. No new physical complaints. Pt is aware she is for stress test today; K repleted yest. Objective - Vital Signs/Intake and Output Vital Signs (last 24 hours): Temp Pulse Resp BP Pulse Ox 98.4 F 65 18 167/85 H 98 10/30/17 05:31 10/30/17 05:31 10/30/17 05:31 10/30/17 05:31 10/30/17 05:31 - Medications Medications: Current Medications Enoxaparin Sodium (Lovenox) 40 mg SC DAILY GWEN PRN Reason: Protocol Last Admin: 10/29/17 09:35 Dose: 40 mg Ergocalciferol (Drisdol 50,000 Intl Units Cap) 1 cap PO QWK [facility] Last Admin: 10/27/17 09:10 Dose: 1 cap Home Med (Patient's Own Medication) 1 unit PO HS [facility] Last Admin: 10/29/17 21:09 Dose: 1 unit Home Med (Zolpidem Tartrate [Ambien Cr]) 12.5 mg PO HS PRN PRN Reason: Sleep Last Admin: 10/30/17 00:15 Dose: 12.5 mg Home Med (Patient's Own Medication) 1 unit PO DAILY [facility] Last Admin: 10/29/17 09:34 Dose: 1 unit Home Med (Patient's Own Medication) 1 unit PO DAILY@0630 [facility] Last Admin: 10/30/17 07:01 Dose: 1 unit Home Med (Patient's Own Medication) 1 unit PO DAILY [facility] Last Admin: 10/29/17 09:33 Dose: 1 unit Home Med (Patient's Own Medication) 200 unit PO BID [facility] PRN Reason: Protocol Last Admin: 10/29/17 17:32 Dose: 200 unit Home Med (Patient's Own Medication) 2 unit INH Q6 PRN PRN Reason: Shortness of Breath Last Admin: 10/28/17 16:43 Dose: 2 unit Home Med (Patient's Own Medication) 1 unit PO BID [facility] Last Admin: 10/29/17 17:32 Dose: 1 unit Home Med (Oxycodone [Oxycodone Immediate Release Tab]) 15 mg PO Q6 PRN PRN Reason: Pain, moderate (4-7) Last Admin: 10/29/17 21:07 Dose: 15 mg Home Med (Oxycodone Hcl [Oxycontin]) 10 mg PO Q12@0900,2100 [facility] Last Admin: 10/30/17 07:01 Dose: 10 mg Lactulose (Enulose) 10 gm PO DAILY PRN PRN Reason: Constipation Lidocaine (Lidoderm) 1 ea TD DAILY PRN PRN Reason: neck/back pain Last Admin: 10/29/17 09:35 Dose: 1 ea Zinc Acetate/Diphenhydramine (Benadryl 1% Zinc Acetate -0.1%) 1 applic TOP Q8 PRN PRN Reason: Itching / Pruritus Last Admin: 10/29/17 23:26 Dose: 1 applic - Labs Labs: 10/27/17 07:14 10/30/17 05:00 PT 10.7 Seconds (9.8-13.1) 10/25/17 01:40 INR 1.0 (0.9-1.2) 10/25/17 01:40 APTT 31.8 Seconds (25.6-37.1) 10/25/17 01:40 - Constitutional Appears: Non-toxic, No Acute Distress - Head Exam Head Exam: NORMAL INSPECTION - Eye Exam Eye Exam: Normal appearance - ENT Exam ENT Exam: Mucous Membranes Moist - Respiratory Exam Respiratory Exam: Clear to Ausculation Bilateral, NORMAL BREATHING PATTERN. absent: Respiratory Distress - Cardiovascular Exam Cardiovascular Exam: REGULAR RHYTHM, +S1, +S2 - GI/Abdominal Exam GI & Abdominal Exam: Soft, Normal Bowel Sounds - Extremities Exam Extremities Exam: Normal Inspection Additional comments: Dry skin on RLE; no erythema - Back Exam Back Exam: NORMAL INSPECTION - Neurological Exam Neurological Exam: Alert, Awake, Oriented x3 - Skin Skin Exam: Dry, Intact, Normal Color, Warm Assessment and Plan - Assessment and Plan (Free Text) Assessment: 67 y/o female with extensive medical history including lupus, seizure disorder, hypertension admitted for atypical chest pain to rule out ACS. For stress test today. Plan: # Atypical Chest Pain - Troponin neg x3 - Dissection study wnl - EKG on admission no acute changes - Pro-BNP: wnl - Cardiology consult Dr. Gallo/Rupert - recommend echo (completed) and stress test (today) # Hypokalemia - resolved # Headache - Relief with tylenol 650mg - Can use home med lidoderm patch as well # Contact dermatitis vs cellulitis - ID Dr. Garcia - does not believe this to be cellulitis, looks more like contact dermatitis; advised prednisone and medrol pack on discharge - s/p 4 doses prednisone - Topical benadryl PRN # Hypertension: - Chronic - C/w home medications - Avoid diuretics - Heart Healthy Diet; NPO since midnight for stress test - monitor vitals # Lupus: - C/w home medications # Hypothyroidism - C/w home medications # Seizure Disorder: - C/w home medication # Prophylaxis: - Lovenox 40mg SC QD <Paolo Whelan - Last Filed: 11/01/17 06:52> Objective - Vital Signs/Intake and Output Vital Signs (last 24 hours): Temp Pulse Resp BP Pulse Ox 97.7 F 69 18 112/67 97 10/31/17 12:15 10/31/17 12:15 10/31/17 12:15 10/31/17 12:15 10/31/17 12:15 - Labs Labs: 10/27/17 07:14 10/31/17 04:20 PT 10.7 Seconds (9.8-13.1) 10/25/17 01:40 INR 1.0 (0.9-1.2) 10/25/17 01:40 APTT 31.8 Seconds (25.6-37.1) 10/25/17 01:40 Attending/Attestation - Attestation I have personally seen and examined this patient.: Yes I have fully participated in the care of the patient.: Yes I have reviewed all pertinent clinical information, including history, physical exam and plan: Yes
[2017-10-30] MEDS: Enoxaparin 40 mg Syringe SC SCH (08:41)
--- NOTE | 2017-10-30 10:36 | CP.PCM.PN ---
Subjective - Date & Time of Evaluation Date of Evaluation: 10/30/17 Time of Evaluation: 09:30 - Subjective Subjective: NO TYPICAL CHEST PAIN OR SOB Objective - Vital Signs/Intake and Output Vital Signs (last 24 hours): Temp Pulse Resp BP Pulse Ox 98.0 F 90 20 150/76 97 10/30/17 08:31 10/30/17 08:31 10/30/17 08:31 10/30/17 08:31 10/30/17 08:31 - Medications Medications: Current Medications Enoxaparin Sodium (Lovenox) 40 mg SC DAILY GWEN PRN Reason: Protocol Last Admin: 10/30/17 08:41 Dose: 40 mg Ergocalciferol (Drisdol 50,000 Intl Units Cap) 1 cap PO QWK [facility] Last Admin: 10/27/17 09:10 Dose: 1 cap Home Med (Patient's Own Medication) 1 unit PO HS [facility] Last Admin: 10/29/17 21:09 Dose: 1 unit Home Med (Zolpidem Tartrate [Ambien Cr]) 12.5 mg PO HS PRN PRN Reason: Sleep Last Admin: 10/30/17 00:15 Dose: 12.5 mg Home Med (Patient's Own Medication) 1 unit PO DAILY [facility] Last Admin: 10/29/17 09:34 Dose: 1 unit Home Med (Patient's Own Medication) 1 unit PO DAILY@0630 [facility] Last Admin: 10/30/17 07:01 Dose: 1 unit Home Med (Patient's Own Medication) 1 unit PO DAILY [facility] Last Admin: 10/29/17 09:33 Dose: 1 unit Home Med (Patient's Own Medication) 200 unit PO BID [facility] PRN Reason: Protocol Last Admin: 10/29/17 17:32 Dose: 200 unit Home Med (Patient's Own Medication) 2 unit INH Q6 PRN PRN Reason: Shortness of Breath Last Admin: 10/28/17 16:43 Dose: 2 unit Home Med (Patient's Own Medication) 1 unit PO BID [facility] Last Admin: 10/29/17 17:32 Dose: 1 unit Home Med (Oxycodone [Oxycodone Immediate Release Tab]) 15 mg PO Q6 PRN PRN Reason: Pain, moderate (4-7) Last Admin: 10/29/17 21:07 Dose: 15 mg Home Med (Oxycodone Hcl [Oxycontin]) 10 mg PO Q12@0900,2100 [facility] Last Admin: 10/30/17 08:41 Dose: Not Given Lactulose (Enulose) 10 gm PO DAILY PRN PRN Reason: Constipation Lidocaine (Lidoderm) 1 ea TD DAILY PRN PRN Reason: neck/back pain Last Admin: 10/29/17 09:35 Dose: 1 ea Zinc Acetate/Diphenhydramine (Benadryl 1% Zinc Acetate -0.1%) 1 applic TOP Q8 PRN PRN Reason: Itching / Pruritus Last Admin: 10/29/17 23:26 Dose: 1 applic - Labs Labs: 10/27/17 07:14 10/30/17 05:00 PT 10.7 Seconds (9.8-13.1) 10/25/17 01:40 INR 1.0 (0.9-1.2) 10/25/17 01:40 APTT 31.8 Seconds (25.6-37.1) 10/25/17 01:40 - Respiratory Exam Respiratory Exam: Clear to Ausculation Bilateral - Cardiovascular Exam Cardiovascular Exam: REGULAR RHYTHM, +S1, +S2 - Additional Findings Additional findings: K+ 4.1 NA 127 Assessment and Plan - Assessment and Plan (Free Text) Assessment: CHEST PAIN SLE Plan: FOR PHARMACOLOGICAL STRESS TEST TODAY THE PATIENT CAN BE DISCHARGED AFTER HER STRESS TEST AND THE RESULTS WILL BE FOLLOWED BY ME AN OUT PATIENT AND REPORTED TO THE PATIENT
[2017-10-30] MEDS: PLAQUENIL 200 MG PO SCH ×2 (11:44→16:30)
[2017-10-30] MEDS: TRILEPTAL 300 MG PO SCH ×2 (11:44→16:31)
[2017-10-30] MEDS: VITAMIN B1 100 MG PO SCH (11:45)
[2017-10-30] MEDS: COZAAR 100 MG PO SCH (11:45)
--- NOTE | 2017-10-30 12:34 | CP.PCM.DIS ---
Provider - Provider Date of Admission: 10/26/17 11:44 Attending physician: Paolo Whelan MD Primary care physician: Cecil Edwards MD Hospital Course - Lab Results Lab Results: Micro Results 10/25/17 04:50 Blood-Venous Blood Culture - Final NO GROWTH AFTER 5 DAYS 10/25/17 04:50 Blood-Venous Gram Stain - Final TEST NOT PERFORMED 10/25/17 01:40 Blood-Venous Blood Culture - Final NO GROWTH AFTER 5 DAYS 10/25/17 01:40 Blood-Venous Gram Stain - Final TEST NOT PERFORMED Most Recent Lab Values WBC 5.0 K/uL (4.8-10.8) 10/27/17 07:14 RBC 4.80 Mil/uL (3.80-5.20) 10/27/17 07:14 Hgb 13.5 g/dL (12.0-16.0) 10/27/17 07:14 Hct 40.6 % (34.0-47.0) 10/27/17 07:14 MCV 84.5 fl (81.0-99.0) 10/27/17 07:14 MCH 28.2 pg (27.0-31.0) 10/27/17 07:14 MCHC 33.4 g/dL (33.0-37.0) 10/27/17 07:14 RDW 14.6 % (11.5-14.5) H 10/27/17 07:14 Plt Count 167 K/uL (130-400) 10/27/17 07:14 MPV 7.7 fl (7.2-11.7) 10/25/17 01:40 Neut % (Auto) 64.1 % (50.0-75.0) 10/25/17 01:40 Lymph % (Auto) 19.6 % (20.0-40.0) L 10/25/17 01:40 [place] % (Auto) 12.2 % (0.0-10.0) H 10/25/17 01:40 Eos % (Auto) 2.9 % (0.0-4.0) 10/25/17 01:40 Baso % (Auto) 1.2 % (0.0-2.0) 10/25/17 01:40 Neut # (Auto) 2.8 K/uL (1.8-7.0) 10/25/17 01:40 Lymph # (Auto) 0.8 K/uL (1.0-4.3) L 10/25/17 01:40 [place] # (Auto) 0.5 K/uL (0.0-0.8) 10/25/17 01:40 Eos # (Auto) 0.1 K/uL (0.0-0.7) 10/25/17 01:40 Baso # (Auto) 0.1 K/uL (0.0-0.2) 10/25/17 01:40 ESR 18 mm/hr (0-30) 10/25/17 01:40 PT 10.7 Seconds (9.8-13.1) 10/25/17 01:40 INR 1.0 (0.9-1.2) 10/25/17 01:40 APTT 31.8 Seconds (25.6-37.1) 10/25/17 01:40 pO2 27 mm/Hg (30-55) L 10/25/17 01:21 VBG pH 7.39 (7.32-7.43) 10/25/17 01:21 VBG pCO2 51 mmHg (40-60) 10/25/17 01:21 VBG HCO3 27.6 mmol/L 10/25/17 01:21 VBG Total CO2 32.5 mmol/L (22-28) H 10/25/17 01:21 VBG O2 Sat (Calc) 59.6 % (40-65) 10/25/17 01:21 VBG Base Excess 4.8 mmol/L (0.0-2.0) H 10/25/17 01:21 VBG Potassium 3.7 mmol/L (3.6-5.2) 10/25/17 01:21 Sodium 130.0 mmol/L (132-148) L 10/25/17 01:21 Chloride 98.0 mmol/L (98-107) 10/25/17 01:21 Glucose 99 mg/dL (65-105) 10/25/17 01:21 Lactate 0.9 mmol/L (0.7-2.1) 10/25/17 01:21 FiO2 21.0 % 10/25/17 01:21 Sodium 127 mmol/l (132-148) L 10/30/17 05:00 Potassium 4.1 MMOL/L (3.6-5.0) 10/30/17 05:00 Chloride 86 mmol/L (98-107) L 10/30/17 05:00 Carbon Dioxide 28 mmol/L (22-30) 10/30/17 05:00 Anion Gap 17 (10-20) 10/30/17 05:00 BUN 22 mg/dl (7-17) H 10/30/17 05:00 Creatinine 0.9 mg/dl (0.7-1.2) 10/30/17 05:00 Est GFR ( Amer) > 60 10/30/17 05:00 Est GFR (Non-Af Amer) > 60 10/30/17 05:00 POC Glucose (mg/dL) 85 mg/dL (65-110) 10/26/17 21:48 Random Glucose 93 mg/dL (65-105) 10/30/17 05:00 Calcium 8.3 mg/dL (8.4-10.2) L 10/30/17 05:00 Total Bilirubin 0.8 mg/dl (0.2-1.3) 10/29/17 08:30 AST 35 U/L (14-36) 10/29/17 08:30 ALT 36 U/L (9-52) 10/29/17 08:30 Alkaline Phosphatase 87 U/L (38-126) 10/29/17 08:30 Troponin I < 0.0120 ng/mL (0.00-0.120) 10/25/17 15:43 NT-Pro-B Natriuret Pep 316 pg/ml (0-900) 10/25/17 01:40 Total Protein 8.0 G/DL (6.3-8.2) 10/29/17 08:30 Albumin 4.2 g/dL (3.5-5.0) 10/29/17 08:30 Globulin 3.8 gm/dL (2.2-3.9) 10/29/17 08:30 Albumin/Globulin Ratio 1.1 (1.0-2.1) 10/29/17 08:30 Lipase 35 U/L (23-300) 10/25/17 01:40 Venous Blood Potassium 3.7 mmol/L (3.6-5.2) 10/25/17 01:21 Urine Color Colorless (YELLOW) 10/25/17 01:40 Urine Clarity Clear (Clear) 10/25/17 01:40 Urine pH 7.0 (5.0-8.0) 10/25/17 01:40 Ur Specific [place] 1.006 (1.003-1.030) 10/25/17 01:40 Urine Protein Negative mg/dL (NEGATIVE) 10/25/17 01:40 Urine Glucose (UA) Neg mg/dL (Normal) 10/25/17 01:40 Urine Ketones Negative mg/dL (NEGATIVE) 10/25/17 01:40 Urine Blood Negative (NEGATIVE) 10/25/17 01:40 Urine Nitrate Negative (NEGATIVE) 10/25/17 01:40 Urine Bilirubin Negative (NEGATIVE) 10/25/17 01:40 Urine Urobilinogen 0.2-1.0 mg/dL (0.2-1.0) 10/25/17 01:40 Ur Leukocyte Esterase Neg Laly/uL (Negative) 10/25/17 01:40 Urine RBC (Auto) < 1 /hpf (0-3) 10/25/17 01:40 Urine Microscopic WBC < 1 /hpf (0-5) 10/25/17 01:40 Discharge Exam - Head Exam Head Exam: NORMAL INSPECTION Discharge Plan - Discharge Medications Prescriptions: Methylprednisolone [Medrol Dose Pack (21 tabs)] 4 mg PO ASDIR #21 - Follow Up Plan Condition: FAIR Disposition: HOME/ ROUTINE Instructions: Contact Dermatitis (DC), Chest Pain (DC) Additional Instructions: follow up with pmd in 1 week Referrals: Cecil Edwards MD [Primary Care Provider] - Shorty Gallo MD [Staff Provider] -
[2017-10-30 13:56] LABS: BLOOD UREA NITROGEN 22 mg/dl (7-17); CALCIUM 8.6 mg/dL (8.4-10.2); GFR AFRICAN-AMERICAN > 60; GFR NON-AFRICAN AMERICAN > 60
[2017-10-30] MEDS: Patient's Own Med (Oxycodone [Oxycodone Immediate Release Tab] 15 mg) PO PRN (15:15)
--- NOTE | 2017-10-30 16:07 | CARD ---
APPROVED REPORT Protocol: LEXISCAN Test Type: Stress Nuclear Medications: Zolpiderm 12.5mg, Oxycodone 15mg, Lidoderm, Zinc Acetate/Benadryl, Vit D, [id number], Advair Diskus, Lactulose Medical History: Hypertension, sleep Apnea, Hx Lung Nodules, Seizures, Chronic Kidney Disease, Kidney stones, Hypothyroidism, Arthritis, Hx Auto Immune Hepatitis,, Hx Lupus Target HR: 152 bpm Resting Heart Rate: 66 bpm Resting Blood Pressure: 169/85mmHg submaximum (85%): 129 bpm TEST SUMMARY PREINJECTPRE-INJEC13:[id number]/85.0. [id number]/[id number]. INJECTIONNS FLUSH00:[id number]/70.0. INJECTIONNUC MED00:[id number]/70.0. [id number]/77.0. PROCEDURE Pharmacologic stress testing was performed using 0.4mg per 5ml of regadenoson given intravenously over 7-10 seconds. Reversal agent aminophyline 75 mg, given intravenously for Headache. POST EXERCISE Reason for Termination: lexiscan Target HR: No Max HR: 86 bpm 58% of Maximum Predicted HR: 152 bpm Exercise duration: 01:00 min:sec, 0 Stage Exercise capacity: 1.0METs Max Blood Pressure: 169/85mmHg Chest Pain: Yes, Angina index: 0 Arrhythmia: Yes, ST Change: Yes, Deviation: 0 mm Stress EKG Interpretation 67 y/o female being evaluated for atypical chest pain Resting EKG: NSR; HR: 66 BPM; BP: 169/85 The patient was first injected with 0.4mg Lexiscan followed by 30 mCi T-99 Myoview stress imaging was taken 30 minutes later There was no ST changes 75 mg of Aminophyllin was given because of side effects from the lexiscan EXAM: Myocardial Perfusion REST/STRESS Image QualityGood Imaging Protocol The imaging protocol used to acquire images was Rest Tc-99m/stress Tc-99m 1 day Rest Spect myocardial perfusion imaging was performed in supine position 60 minutes following the injection of 10 mCi of Tc-99 Myoview. Time of rest injection: 8:06 Time of rest imagin:10 At peak stress, the patient was injected intravenously with 30mCi of Tc-99 tetrofosmin after an infusion time of minutes and seconds. Time of stress injection: 10:36 Time of stress imagin:11 Gated Stress Spect was performed 100 minutes after intravenous Tc-99 Myoview injection. The images were gated to evaluate regional wall motion and calculate ventricular ejection fraction. LV Perfusion There is good perfusion in all giron of the LV in Stress as well as Resting imaging Wall Motion Good LV function EF: 65% CONCLUSION 1. Normal Lexiscan
[2017-10-30] MEDS ORDERED: Potassium Chloride 20 mEq ER Tab PO ONE (17:01)
[2017-10-30] MEDS ORDERED: Oxycodone/Acetaminophen 5/325 mg Tab PO STA (17:02)
[2017-10-30] MEDS: PROTONIX 40 MG PO SCH (21:08)
[2017-10-31 00:11] VITALS: RESP 18
[2017-10-31] MEDS: SYNTHROID 100 MCG PO SCH (05:42)
[2017-10-31 05:52] LABS: BLOOD UREA NITROGEN 20 mg/dl (7-17); CALCIUM 8.1 mg/dL (8.4-10.2); GFR AFRICAN-AMERICAN > 60; GFR NON-AFRICAN AMERICAN > 60
--- NOTE | 2017-10-31 08:14 | CP.PCM.DIS ---
Provider - Provider Date of Admission: 10/26/17 11:44 Attending physician: Paolo Whelan MD Primary care physician: Cecil Edwards MD Consults: Cardiology- Dr. Gallo Infectious Disease- Dr. German Time Spent in preparation of Discharge (in minutes): 45 Diagnosis - Discharge Diagnosis (1) Chest pain Status: Resolved Comment: ACS ruled out; troponin negative x3. Dr. Gallo consulted/Dr. Emery was covering, recommended echo and stress test. Both echo and stress test were read as normal, and as per Dr. Gallo, pt is cleared for discharge with followup with him as outpatient. Chest pain was likely due to costochondritis. (2) Contact dermatitis Status: Suspected Comment: Pt presented with dry red patch on her right lower extemity; Infectious Diease was consulted, Dr. German saw pt and did not think the redness was cellulitic or infectious, more likely contact dermatitis/ sensitivity. As per his recommendations, pt received prednisone 40 mg daily while admitted, and can be discharged with medrol pack. (3) Hypokalemia Status: Resolved Comment: Likely thiazide induced; pt's BP was elevated on several readings and HCTZ was added, but new hypokalemia was discovered on AM labs. Hypokalemia resolved with repletement and discontinuation of HCTZ. (4) Hyponatremia Status: Acute Comment: Likely thiazide induced- pt's BP was elevated on several readings and HCTZ was added, but new hyponatremia was discovered on AM labs. Improving with discontinuing thiazide and fluid restriction of 1L/day. Hospital Course - Lab Results Lab Results: Micro Results 10/25/17 04:50 Blood-Venous Blood Culture - Final NO GROWTH AFTER 5 DAYS 10/25/17 04:50 Blood-Venous Gram Stain - Final TEST NOT PERFORMED 10/25/17 01:40 Blood-Venous Blood Culture - Final NO GROWTH AFTER 5 DAYS 10/25/17 01:40 Blood-Venous Gram Stain - Final TEST NOT PERFORMED Most Recent Lab Values WBC 5.0 K/uL (4.8-10.8) 10/27/17 07:14 RBC 4.80 Mil/uL (3.80-5.20) 10/27/17 07:14 Hgb 13.5 g/dL (12.0-16.0) 10/27/17 07:14 Hct 40.6 % (34.0-47.0) 10/27/17 07:14 MCV 84.5 fl (81.0-99.0) 10/27/17 07:14 MCH 28.2 pg (27.0-31.0) 10/27/17 07:14 MCHC 33.4 g/dL (33.0-37.0) 10/27/17 07:14 RDW 14.6 % (11.5-14.5) H 10/27/17 07:14 Plt Count 167 K/uL (130-400) 10/27/17 07:14 MPV 7.7 fl (7.2-11.7) 10/25/17 01:40 Neut % (Auto) 64.1 % (50.0-75.0) 10/25/17 01:40 Lymph % (Auto) 19.6 % (20.0-40.0) L 10/25/17 01:40 [place] % (Auto) 12.2 % (0.0-10.0) H 10/25/17 01:40 Eos % (Auto) 2.9 % (0.0-4.0) 10/25/17 01:40 Baso % (Auto) 1.2 % (0.0-2.0) 10/25/17 01:40 Neut # (Auto) 2.8 K/uL (1.8-7.0) 10/25/17 01:40 Lymph # (Auto) 0.8 K/uL (1.0-4.3) L 10/25/17 01:40 [place] # (Auto) 0.5 K/uL (0.0-0.8) 10/25/17 01:40 Eos # (Auto) 0.1 K/uL (0.0-0.7) 10/25/17 01:40 Baso # (Auto) 0.1 K/uL (0.0-0.2) 10/25/17 01:40 ESR 18 mm/hr (0-30) 10/25/17 01:40 PT 10.7 Seconds (9.8-13.1) 10/25/17 01:40 INR 1.0 (0.9-1.2) 10/25/17 01:40 APTT 31.8 Seconds (25.6-37.1) 10/25/17 01:40 pO2 27 mm/Hg (30-55) L 10/25/17 01:21 VBG pH 7.39 (7.32-7.43) 10/25/17 01:21 VBG pCO2 51 mmHg (40-60) 10/25/17 01:21 VBG HCO3 27.6 mmol/L 10/25/17 01:21 VBG Total CO2 32.5 mmol/L (22-28) H 10/25/17 01:21 VBG O2 Sat (Calc) 59.6 % (40-65) 10/25/17 01:21 VBG Base Excess 4.8 mmol/L (0.0-2.0) H 10/25/17 01:21 VBG Potassium 3.7 mmol/L (3.6-5.2) 10/25/17 01:21 Sodium 130.0 mmol/L (132-148) L 10/25/17 01:21 Chloride 98.0 mmol/L (98-107) 10/25/17 01:21 Glucose 99 mg/dL (65-105) 10/25/17 01:21 Lactate 0.9 mmol/L (0.7-2.1) 10/25/17 01:21 FiO2 21.0 % 10/25/17 01:21 Sodium 129 mmol/l (132-148) L 10/31/17 04:20 Potassium 4.6 MMOL/L (3.6-5.0) 10/31/17 04:20 Chloride 88 mmol/L (98-107) L 10/31/17 04:20 Carbon Dioxide 28 mmol/L (22-30) 10/31/17 04:20 Anion Gap 18 (10-20) 10/31/17 04:20 BUN 20 mg/dl (7-17) H 10/31/17 04:20 Creatinine 0.9 mg/dl (0.7-1.2) 10/31/17 04:20 Est GFR ( Amer) > 60 10/31/17 04:20 Est GFR (Non-Af Amer) > 60 10/31/17 04:20 POC Glucose (mg/dL) 85 mg/dL (65-110) 10/26/17 21:48 Random Glucose 85 mg/dL (65-105) 10/31/17 04:20 Calcium 8.1 mg/dL (8.4-10.2) L 10/31/17 04:20 Total Bilirubin 0.8 mg/dl (0.2-1.3) 10/29/17 08:30 AST 35 U/L (14-36) 10/29/17 08:30 ALT 36 U/L (9-52) 10/29/17 08:30 Alkaline Phosphatase 87 U/L (38-126) 10/29/17 08:30 Troponin I < 0.0120 ng/mL (0.00-0.120) 10/25/17 15:43 NT-Pro-B Natriuret Pep 316 pg/ml (0-900) 10/25/17 01:40 Total Protein 8.0 G/DL (6.3-8.2) 10/29/17 08:30 Albumin 4.2 g/dL (3.5-5.0) 10/29/17 08:30 Globulin 3.8 gm/dL (2.2-3.9) 10/29/17 08:30 Albumin/Globulin Ratio 1.1 (1.0-2.1) 10/29/17 08:30 Lipase 35 U/L (23-300) 10/25/17 01:40 Venous Blood Potassium 3.7 mmol/L (3.6-5.2) 10/25/17 01:21 Urine Color Colorless (YELLOW) 10/25/17 01:40 Urine Clarity Clear (Clear) 10/25/17 01:40 Urine pH 7.0 (5.0-8.0) 10/25/17 01:40 Ur Specific [place] 1.006 (1.003-1.030) 10/25/17 01:40 Urine Protein Negative mg/dL (NEGATIVE) 10/25/17 01:40 Urine Glucose (UA) Neg mg/dL (Normal) 10/25/17 01:40 Urine Ketones Negative mg/dL (NEGATIVE) 10/25/17 01:40 Urine Blood Negative (NEGATIVE) 10/25/17 01:40 Urine Nitrate Negative (NEGATIVE) 10/25/17 01:40 Urine Bilirubin Negative (NEGATIVE) 10/25/17 01:40 Urine Urobilinogen 0.2-1.0 mg/dL (0.2-1.0) 10/25/17 01:40 Ur Leukocyte Esterase Neg Laly/uL (Negative) 10/25/17 01:40 Urine RBC (Auto) < 1 /hpf (0-3) 10/25/17 01:40 Urine Microscopic WBC < 1 /hpf (0-5) 10/25/17 01:40 - Hospital Course Hospital Course: Pt was admitted due to chest pain, and to r/o ACS. No chest pain this am. Troponins were negative x3. She underwent echocardiogram and nuclear stress test , which both were read as normal. As per account solutions analyst Dr. Gallo, pt can be discharged and she is to follow up with him as outpatient. Pt also presented with a patch of red skin on her right leg; was evaluated by Infectious Disease specialist Dr. German, who did not believe the redness to be infectious/ cellulitic, but rather a contact dermatitis. As per his recommendations, pt was given 40mg prednisone daily which improved the redness. Spoke to Dr. German regarding pt discharge- she can be discharged with medrol pack. During her stay, her blood pressure was evelated to 180s systolic several times , likely due to being in hospital setting/aggravation. HCTZ was added to her regimen, but resulted in hypokalemia and hyponatremia. HCTZ was discontinued, potassium was repleted with PO tablets, and pt was placed on fluid restriction. Hypokalemia resolved, and hyponatremia continued to improve. Pt is aware the is not to drink more than 1L of fluid/day. Discharge Exam - Head Exam Head Exam: NORMAL INSPECTION - Eye Exam Eye Exam: Normal appearance - ENT Exam ENT Exam: Mucous Membranes Dry - Respiratory Exam Respiratory Exam: Clear to PA & Lateral, UNREMARKABLE - Cardiovascular Exam Cardiovascular Exam: REGULAR RHYTHM, +S1, +S2 - GI/Abdominal Exam GI & Abdominal Exam: Normal Bowel Sounds, Soft, Unremarkable. absent: Distended , Tenderness - Extremities Exam Extremities exam: normal capillary refill, normal inspection - Back Exam Back exam: NORMAL INSPECTION - Neurological Exam Neurological exam: Alert, Oriented x3 - Skin Skin Exam: Dry, Intact, Normal Color, Warm Discharge Plan - Discharge Medications Prescriptions: Methylprednisolone [Medrol Dose Pack (21 tabs)] 4 mg PO ASDIR #21 Potassium Chloride [Klor-Con M20] 20 meq PO DAILY #30 tab.er.prt - Follow Up Plan Condition: FAIR Disposition: HOME/ ROUTINE Instructions: Contact Dermatitis (DC), Chest Pain (DC), Costochondritis (DC), Fluid Restricted Diet Additional Instructions: Please follow up with PMD in 1 week, and obtain cardiology referral from PMD. Continue your home medications, and note addition of medrol pack for your leg redness (take as directed on packaging) and potassium tablets (20 mEq tablets, 1 daily) sent to your pharmacy. Please get labwork done prior to seeing PMD. Referrals: Cecil Edwards MD [Primary Care Provider] - (Call for appointment this Sunday or next Sunday because he'll be away after that.) Shorty Gallo MD [Staff Provider] - 1 Week (Will see you in 1-2 weeks; can call for appt following appt with PMD.)
[2017-10-31 08:22] VITALS: O2SAT 97
[2017-10-31] MEDS: Patient's Own Med (Oxycodone [Oxycodone Immediate Release Tab] 15 mg) PO PRN (08:41)
[2017-10-31] MEDS: Enoxaparin 40 mg Syringe SC SCH (08:42)
[2017-10-31] MEDS: TRILEPTAL 300 MG PO SCH (08:42)
[2017-10-31] MEDS: OXYCODONE HCL 10 MG PO SCH (08:42)
[2017-10-31] MEDS: PLAQUENIL 200 MG PO SCH (08:43)
[2017-10-31] MEDS: COZAAR 100 MG PO SCH (08:43)
[2017-10-31] MEDS: Lidocaine 5% Patch TD PRN (08:45)
--- NOTE | 2017-10-31 10:20 | CP.PCM.PN ---
Subjective - Date & Time of Evaluation Date of Evaluation: 10/31/17 Time of Evaluation: 07:30 - Subjective Subjective: NO COMPLAINTS OF CHEST PAIN OR SOB Objective - Vital Signs/Intake and Output Vital Signs (last 24 hours): Temp Pulse Resp BP Pulse Ox 98.0 F 64 18 159/82 H 97 10/31/17 08:00 10/31/17 08:00 10/31/17 08:00 10/31/17 08:00 10/31/17 08:00 - Medications Medications: Current Medications Enoxaparin Sodium (Lovenox) 40 mg SC DAILY [facility] PRN Reason: Protocol Last Admin: 10/31/17 08:42 Dose: 40 mg Ergocalciferol (Drisdol 50,000 Intl Units Cap) 1 cap PO QWK [facility] Last Admin: 10/27/17 09:10 Dose: 1 cap Home Med (Patient's Own Medication) 1 unit PO HS [facility] Last Admin: 10/30/17 21:08 Dose: 1 unit Home Med (Zolpidem Tartrate [Ambien Cr]) 12.5 mg PO HS PRN PRN Reason: Sleep Last Admin: 10/31/17 00:38 Dose: 12.5 mg Home Med (Patient's Own Medication) 1 unit PO DAILY [facility] Last Admin: 10/31/17 08:43 Dose: 1 unit Home Med (Patient's Own Medication) 1 unit PO DAILY@0630 [facility] Last Admin: 10/31/17 05:42 Dose: 1 unit Home Med (Patient's Own Medication) 1 unit PO DAILY [facility] Last Admin: 10/30/17 11:45 Dose: 1 unit Home Med (Patient's Own Medication) 200 unit PO BID [facility] PRN Reason: Protocol Last Admin: 10/31/17 08:43 Dose: 200 unit Home Med (Patient's Own Medication) 2 unit INH Q6 PRN PRN Reason: Shortness of Breath Last Admin: 10/28/17 16:43 Dose: 2 unit Home Med (Patient's Own Medication) 1 unit PO BID [facility] Last Admin: 10/31/17 08:42 Dose: 1 unit Home Med (Oxycodone [Oxycodone Immediate Release Tab]) 15 mg PO Q6 PRN PRN Reason: Pain, moderate (4-7) Last Admin: 10/31/17 08:41 Dose: 15 mg Home Med (Oxycodone Hcl [Oxycontin]) 10 mg PO Q12@0900,2100 [facility] Last Admin: 10/31/17 08:42 Dose: 10 mg Lactulose (Enulose) 10 gm PO DAILY PRN PRN Reason: Constipation Lidocaine (Lidoderm) 1 ea TD DAILY PRN PRN Reason: neck/back pain Last Admin: 10/31/17 08:45 Dose: 1 ea Zinc Acetate/Diphenhydramine (Benadryl 1% Zinc Acetate -0.1%) 1 applic TOP Q8 PRN PRN Reason: Itching / Pruritus Last Admin: 10/29/17 23:26 Dose: 1 applic - Labs Labs: 10/27/17 07:14 10/31/17 04:20 PT 10.7 Seconds (9.8-13.1) 10/25/17 01:40 INR 1.0 (0.9-1.2) 10/25/17 01:40 APTT 31.8 Seconds (25.6-37.1) 10/25/17 01:40 - Respiratory Exam Respiratory Exam: Clear to Ausculation Bilateral - Cardiovascular Exam Cardiovascular Exam: REGULAR RHYTHM, +S1, +S2 - Additional Findings Additional findings: PALLIATIVE NURSE NSR PHARMACOLOGICAL STRESS TEST WAS NEGATIVE FOR ISCHEMIA K+ 4.6 Assessment and Plan - Assessment and Plan (Free Text) Assessment: CHEST PAIN WITH NEGATIVE STRESS TEST-PAIN MAY BE FROM GERDS OR CHEST WALL TENDERNESS HYPERTENSION SLE Plan: FOR PROBABLE DISCHARGE TODAY CONTINUE COZAAR 50 MGS PO DAILY I WILL SEE IN THE OFFICE IN ~ 2WEEKS
[2017-10-31 12:16] VITALS: BP 112/67; PULSE 69; TEMP 97.7
== END 2017-10-31 15:50 | disposition home or self-care (01) | DRG 206 ==
LOC: H.ER 23:51 → H.ERHOLD 10-25 05:08 → H.TEL 10-25 06:47 → OBSVTOIN 10-26 11:44
PROVIDERS: ADMIT Family Medicine; ATTEND Family Medicine
PROC: C23GYZZ Positron Emission Tomographic (PET) Imaging of Myocardium using Other Radionuclide (ICD-10-PCS; principal; 2017-10-30)
DX: M94.0 Chondrocostal junction syndrome [Tietze] (principal); E87.1 Hypo-osmolality and hyponatremia; K75.4 Autoimmune hepatitis; M32.9 Systemic lupus erythematosus, unspecified; L25.9 Unspecified contact dermatitis, unspecified cause; E87.6 Hypokalemia; M79.7 Fibromyalgia; K21.9 Gastro-esophageal reflux disease without esophagitis; I12.9 Hypertensive chronic kidney disease with stage 1 through stage 4 chronic kidney disease, or unspecified chronic kidney disease; N18.9 Chronic kidney disease, unspecified; G40.909 Epilepsy, unspecified, not intractable, without status epilepticus; M81.0 Age-related osteoporosis without current pathological fracture; E03.9 Hypothyroidism, unspecified; G47.30 Sleep apnea, unspecified; G44.209 Tension-type headache, unspecified, not intractable; F41.9 Anxiety disorder, unspecified; G89.29 Other chronic pain; M19.90 Unspecified osteoarthritis, unspecified site; Z88.6 Allergy status to analgesic agent; Z88.1 Allergy status to other antibiotic agents; Z87.442 Personal history of urinary calculi

== ENCOUNTER 2018-04-13 04:22 | Emergency (ER) | payer MEDICARE ==
[2018-04-13 04:50] VITALS: BMI 25.0
[2018-04-13] MEDS ORDERED: Metoprolol 1 mg/ml Inj IVP STA (04:51)
--- NOTE | 2018-04-13 05:08 | ED PDOC ---
HPI: Chest Pain Time Seen by Provider: 04/13/18 04:40 Chief Complaint (Nursing): Chest Pain Chief Complaint (Provider): Chest pain History Per: Patient History/Exam Limitations: no limitations Onset/Duration Of Symptoms: Hrs (00:00 today) Quality: Pressure Additional Complaint(s): Imani Singh is a 67 year old female, with a past medical history of HTN on Cozaar, Lupus, seizure disorder, hypothyroidism and anxiety, who presents to the emergency department complaining of high blood pressure and chest pain onset since midnight. Patient states since midnight she started to feel her blood pressure go up and reports an abnormal sensation across her whole body including the chest pain, described as pressure, and headache. Patient felt very anxious and kept checking her blood pressure. Despite taking Cozaar at 01: 30, her blood pressure kept increasing. Patient reports chest pain is non radiating and has improved now. She denies any fever, chills or shortness of breath. No further medical complaints. PMD: None provided. Past Medical History Reviewed: Historical Data, Nursing Documentation, Vital Signs Vital Signs: Last Vital Signs Temp 98.3 F 04/13/18 04:40 Pulse 65 04/13/18 06:36 Resp 28 H 04/13/18 04:39 BP 168/83 H 04/13/18 06:36 Pulse Ox 99 04/13/18 06:36 - Medical History PMH: Anxiety, Arthritis, Back Problems, Fibromyalgia, GERD, Hepatitis ( autoimmune), HTN, Hypothyroidism, Kidney Stones, Osteoporosis, Chronic Kidney Disease, Seizures, Sleep Apnea, Chronic Pain Other PMH: Lupus - Surgical History Surgical History: No Surg Hx - Family History Family History: States: Unknown Family Hx - Social History Current smoker - smoking cessation education provided: No Alcohol: None Drugs: Denies - Home Medications Home Medications: Ambulatory Orders Medication Instructions Recorded Albuterol Sulfate [Proair Hfa] 2 inh INH PRN PRN 10/25/17 Cholecalciferol [Vitamin D 1000 IU] 1 cap PO DAILY 10/25/17 Ergocalciferol (Vitamin D2) 1 cap PO QWK 10/25/17 [Vitamin D2] Fluticasone/Salmeterol 250/50 2 inh INH Q12 10/25/17 [Advair Diskus 250/50] Hydroxychloroquine Sulfate 200 mg PO BID 10/25/17 [Plaquenil] Lactulose [Generlac] 30 ml PO HS 10/25/17 Levothyroxine [Synthroid] 100 mcg PO DAILY 10/25/17 Lidocaine 5% [Lidoderm] 1 patch TD PRN PRN 10/25/17 Losartan [Cozaar] 100 mg PO DAILY 10/25/17 OXcarbazepine [Trileptal] 1.5 tab PO HS 10/25/17 Oxycodone HCl [Oxycontin] 10 mg PO Q12 10/25/17 Pantoprazole Sodium [Protonix] 40 mg PO HS 10/25/17 Thiamine HCl [B-1] 100 mg PO DAILY 10/25/17 Triamterene/Hydrochlorothiazid 0.5 tab PO DAILY 10/25/17 [Maxzide 75 mg-50 mg Tablet] Zolpidem Tartrate [Ambien Cr] 12.5 mg PO HS 10/25/17 oxyCODONE [oxyCODONE Immediate 15 mg PO Q6 PRN 10/25/17 Release Tab] Methylprednisolone [Medrol Dose 4 mg PO ASDIR #21 10/30/17 Pack (21 tabs)] Potassium Chloride [Klor-Con M20] 20 meq PO DAILY #30 tab.er.prt 10/30/17 - Allergies Allergies/Adverse Reactions: Allergies Allergy/AdvReac Type Severity Reaction Status Date / Time aspirin Allergy RASH Verified 10/25/17 05:29 bupropion Allergy see below Verified 10/25/17 00:11 [From Wellbutrin SR] ciprofloxacin [From Cipro] Allergy RASH Verified 10/25/17 00:09 clopidogrel [From Plavix] Allergy bruising Verified 10/25/17 00:16 ibuprofen [From Motrin] Allergy RASH Verified 10/25/17 00:03 phenytoin [From Dilantin] Allergy RASH Verified 10/25/17 00:15 quetiapine [From Seroquel] AdvReac see below Verified 10/25/17 00:13 tramadol [From Ultram] AdvReac see below Verified 10/25/17 00:14 Review of Systems ROS Statement: Except As Marked, All Systems Reviewed And Found Negative Constitutional: Negative for: Fever, Chills Cardiovascular: Positive for: Chest Pain Respiratory: Negative for: Shortness of Breath Neurological: Positive for: Headache Psych: Positive for: Anxiety Physical Exam - Reviewed Nursing Documentation Reviewed: Yes Vital Signs Reviewed: Yes - Physical Exam Appears: Negative for: Well (very anxious appearing) Head Exam: Positive for: ATRAUMATIC, NORMAL INSPECTION, NORMOCEPHALIC Skin: Positive for: Normal Color, Warm, Dry Eye Exam: Positive for: Normal appearance, EOMI, PERRL Neck: Positive for: Painless ROM Cardiovascular/Chest: Positive for: Regular Rate, Rhythm. Negative for: Murmur Respiratory: Positive for: Normal Breath Sounds. Negative for: Respiratory Distress Gastrointestinal/Abdominal: Positive for: Normal Exam, Soft. Negative for: Tenderness Back: Positive for: Normal Inspection Extremity: Positive for: Normal ROM (upper and lower extremities). Negative for : Deformity, Swelling Neurologic/Psych: Positive for: Alert, Oriented. Negative for: Motor/Sensory Deficits - Laboratory Results Result Diagrams: 04/13/18 05:15 04/13/18 05:15 - ECG O2 Sat by Pulse Oximetry: 98 (RA) Pulse Ox Interpretation: Normal Medical Decision Making Medical Decision Making: Time: 04:40 A/P: 67 y/o female with history of HTN, Lupus, seizures, hypothyroidism and anxiety presents with elevated pressure, anxiety and chest pain. Differential diagnosis includes: anxious state vs HTN vs cardiac involvement Initial Plan: --EKG --BMP --Troponin I --CBC w/ differential --PTT --PT --Lopressor 5 mg IVP --Xanax 0.5 mg PO --Reevaluation EKG: Normal sinus rhythm @ [address] or T wave changes. 700 --Patient is feeling much better, BP 154/78 --Patient to have second troponin at 8AM --Case endorsed to Dr. Mckenzie pending 2nd troponin and re-eval ----- Scribe Attestation: Documented by Pérez Wheatley, acting as a scribe for Rodney Flower MD. Provider Scribe Attestation: All medical record entries made by the Scribe were at my direction and personally dictated by me. I have reviewed the chart and agree that the record accurately reflects my personal performance of the history, physical exam, medical decision making, and the department course for this patient. I have also personally directed, reviewed, and agree with the discharge instructions and disposition. Disposition - Clinical Impression Clinical Impression: Atypical chest pain - Disposition Disposition: Transfer of Care Disposition Time: 07:00 Condition: STABLE Forms: [employer] (Telugu) Patient Signed Over To: Win Mckenzie Handoff Comments: pending 2nd troponin
[2018-04-13] MEDS ORDERED: Metoprolol 1 mg/ml Inj IVP ONE (05:24)
[2018-04-13 05:32] LABS: BASO # 0.1 K/uL (0.0-0.2); EOS % 0.8 % (0.0-4.0); HEMOGLOBIN 13.4 g/dL (12.0-16.0); LYMPH # 0.8 K/uL (1.0-4.3); LYMPH % 14.6 % (20.0-40.0); MEAN CELL VOLUME 83.3 fl (81.0-99.0); MEAN CORPUSCULAR HEMOGLOBIN 27.3 pg (27.0-31.0); MEAN CORPUSCULAR HGB CONC 32.8 g/dL (33.0-37.0); MEAN PLATELET VOLUME 7.9 fl (7.2-11.7); MONO # 0.4 K/uL (0.0-0.8); MONO % 7.1 % (0.0-10.0); NEUT # 4.3 K/uL (1.8-7.0); NEUT % 76.5 % (50.0-75.0); RBC 4.89 Mil/uL (3.80-5.20); RED CELL DISTRIBUTION WIDTH 14.3 % (11.5-14.5); WHITE BLOOD COUNT 5.6 K/uL (4.8-10.8)
[2018-04-13 06:19] LABS: BLOOD UREA NITROGEN 16 mg/dl (7-17); CALCIUM 9.2 mg/dL (8.4-10.2); GFR NON-AFRICAN AMERICAN > 60
[2018-04-13 07:51] VITALS: TEMP 98.4
--- NOTE | 2018-04-13 08:17 | CARD ---
APPROVED REPORT Date of service: 04/13/2018 <Conclusion> Normal sinus rhythm Minimal voltage criteria for LVH, may be normal variant Borderline ECG
[2018-04-13 08:47] LABS: PROTHROMBIN TIME 10.9 Seconds (9.8-13.1)
[2018-04-13 08:50] LABS: PARTIAL THROMBOPLASTIN TIME 30.5 Seconds (25.6-37.1)
--- NOTE | 2018-04-13 09:09 | ED PDOC ---
- Laboratory Results Result Diagrams: 04/13/18 05:15 04/13/18 05:15 - ECG O2 Sat by Pulse Oximetry: 96 - Progress Re-evaluation Time: 09:08 Condition: Improved Disposition - Clinical Impression Clinical Impression: Atypical chest pain, Hypertension, Anxiety - POA Present On Arrival: None - Disposition Disposition: Routine/Home Disposition Time: 09:09 Condition: FAIR Instructions: High Blood Pressure (DC), Anxiety, Adult (DC) Forms: [employer] (Upper Sorbian)
[2018-04-13 09:32] VITALS: BP 139/77; PULSE 63; RESP 18; O2SAT 97
--- NOTE | 2018-04-13 16:17 | RAD ---
Date of service: 04/13/2018 HISTORY: cp COMPARISON: Comparison made with chest radiograph 10/25/2017. Correlation also made with CTA chest dated 10/25/2017. FINDINGS: LUNGS: No active pulmonary disease. PLEURA: No significant pleural effusion identified, no pneumothorax apparent. CARDIOVASCULAR: Heart size within range of normal. OSSEOUS STRUCTURES: No significant abnormalities. VISUALIZED UPPER ABDOMEN: Normal. OTHER FINDINGS: None. IMPRESSION: No active disease.
== END 2018-04-13 09:25 | disposition home or self-care (01) ==
LOC: H.ER 04:22
DX: R07.89 Other chest pain (principal); G40.909 Epilepsy, unspecified, not intractable, without status epilepticus; G89.29 Other chronic pain; I12.9 Hypertensive chronic kidney disease with stage 1 through stage 4 chronic kidney disease, or unspecified chronic kidney disease; M32.9 Systemic lupus erythematosus, unspecified; M81.0 Age-related osteoporosis without current pathological fracture; N18.9 Chronic kidney disease, unspecified; Z87.442 Personal history of urinary calculi; Z88.6 Allergy status to analgesic agent; M79.7 Fibromyalgia

== ENCOUNTER 2018-05-28 20:28 | Inpatient (IN) | payer MEDICARE ==
[2018-05-28 20:28] VITALS: BMI 25.0
[2018-05-28] MEDS ORDERED: Sodium Chloride 0.9% 1,000 ML IV STA (21:17)
[2018-05-28 21:45] LABS: BASO % 0.8 % (0.0-2.0); EOS # 0.1 K/uL (0.0-0.7); EOS % 1.4 % (0.0-4.0); HEMOGLOBIN 12.9 g/dL (12.0-16.0); LYMPH # 0.7 K/uL (1.0-4.3); LYMPH % 13.9 % (20.0-40.0); MEAN CORPUSCULAR HEMOGLOBIN 27.9 pg (27.0-31.0); MEAN CORPUSCULAR HGB CONC 33.2 g/dL (33.0-37.0); MONO # 0.6 K/uL (0.0-0.8); MONO % 11.7 % (0.0-10.0); NEUT # 3.5 K/uL (1.8-7.0); NEUT % 72.2 % (50.0-75.0); RBC 4.63 Mil/uL (3.80-5.20); RED CELL DISTRIBUTION WIDTH 13.9 % (11.5-14.5); WHITE BLOOD COUNT 4.9 K/uL (4.8-10.8)
[2018-05-28 21:54] LABS: ALB/GLOB RATIO 1.1 (1.0-2.1); ALBUMIN 4.2 g/dL (3.5-5.0); ALT/SGPT 34 U/L (9-52); AST/SGOT 41 U/L (14-36); BLOOD UREA NITROGEN 17 mg/dl (7-17); CALCIUM 8.6 mg/dL (8.4-10.2); GFR NON-AFRICAN AMERICAN > 60
--- NOTE | 2018-05-28 22:10 | ED PDOC ---
HPI: General Adult Time Seen by Provider: 05/28/18 20:44 Chief Complaint (Nursing): Chest Pain Chief Complaint (Provider): Generalized weakness History Per: Patient History/Exam Limitations: no limitations Onset/Duration Of Symptoms: Days (x1) Current Symptoms Are (Timing): Still Present Additional Complaint(s): 67 year old female, with a past medical history of rheumatoid arthritis, Lupus, fibromyalgia, HTN, presents to the ED complaining of generalized weakness. Patient reports she awoke this morning with generalized sense of weakness. She states she normally has jet diffuse joint discomfort which is unchanged from routine which is due to autoimmune diagnoses. Denies nausea, vomiting, diarrhea, fever, cough, or SOB. She has had similar symptoms in the past and at times related to electrolyte abnormalities. Pain management: Dr. Moe PMD: Cecil Pack Past Medical History Reviewed: Historical Data, Nursing Documentation, Vital Signs Vital Signs: Last Vital Signs Temp 97.9 F 05/28/18 20:39 Pulse 68 05/28/18 20:39 Resp 18 05/28/18 20:39 BP 151/78 H 05/28/18 20:39 Pulse Ox 98 05/28/18 20:39 - Medical History PMH: Anxiety, Arthritis, Back Problems, Fibromyalgia, GERD, Hepatitis (autoimmune), HTN, Hypothyroidism, Kidney Stones, Osteoporosis, Chronic Kidney Disease, Rheumatoid Arthritis, Seizures, Sleep Apnea, Chronic Pain Other PMH: Lupus - Surgical History Surgical History: No Surg Hx - Family History Family History: States: Unknown Family Hx - Social History Current smoker - smoking cessation education provided: No Alcohol: None Drugs: Denies - Home Medications Home Medications: Ambulatory Orders Medication Instructions Recorded Albuterol Sulfate [Proair Hfa] 2 puff INH Q6 PRN 10/25/17 Ergocalciferol (Vitamin D2) 50,000 unit PO SUN 10/25/17 [Vitamin D2] Fluticasone/Salmeterol 250/50 1 puff INH Q12 10/25/17 [Advair Diskus 250/50] Hydroxychloroquine Sulfate 200 mg PO Q12 10/25/17 [Plaquenil] Lactulose [Generlac] 30 ml PO HS PRN 10/25/17 Levothyroxine [Synthroid] 100 mcg PO DAILY 10/25/17 Losartan [Cozaar] 100 mg PO DAILY 10/25/17 OXcarbazepine [Trileptal] 300 tab PO Q12 10/25/17 Oxycodone HCl [Oxycontin] 10 mg PO Q12 10/25/17 Pantoprazole Sodium [Protonix] 40 mg PO DAILY 10/25/17 RX: Thiamine HCl [B-1] 100 mg PO DAILY 10/25/17 RX: oxyCODONE [oxyCODONE Immediate 30 mg PO Q12 10/25/17 Release Tab] Zolpidem Tartrate [Ambien Cr] 12.5 mg PO HS 10/25/17 ALPRAZolam [Xanax] 0.25 mg PO Q8 PRN 04/25/18 Metoprolol Tartrate [Lopressor] 25 mg PO Q12 04/25/18 RX: Meclizine [Antivert] 12.5 mg PO DAILY PRN 04/25/18 Alprazolam [Xanax] 1 tab PO BID PRN 05/29/18 - Allergies Allergies/Adverse Reactions: Allergies Allergy/AdvReac Type Severity Reaction Status Date / Time amlodipine [From Norvasc] Allergy RASH Verified 05/28/18 20:39 aspirin Allergy RASH Verified 05/28/18 20:39 bupropion Allergy see below Verified 05/28/18 20:39 [From Wellbutrin SR] ciprofloxacin [From Cipro] Allergy RASH Verified 05/28/18 20:39 clopidogrel [From Plavix] Allergy bruising Verified 05/28/18 20:39 ibuprofen [From Motrin] Allergy RASH Verified 05/28/18 20:39 phenytoin [From Dilantin] Allergy RASH Verified 05/28/18 20:39 quetiapine [From Seroquel] AdvReac see below Verified 05/28/18 20:39 tramadol [From Ultram] AdvReac see below Verified 05/28/18 20:39 Review of Systems ROS Statement: Except As Marked, All Systems Reviewed And Found Negative Constitutional: Positive for: Weakness (generalized) Respiratory: Negative for: Cough, Shortness of Breath Gastrointestinal: Negative for: Nausea, Vomiting, Diarrhea Physical Exam - Reviewed Nursing Documentation Reviewed: Yes Vital Signs Reviewed: Yes - Physical Exam Appears: Positive for: Non-toxic, No Acute Distress Head Exam: Positive for: ATRAUMATIC, NORMOCEPHALIC Skin: Positive for: Normal Color, Warm, Dry Eye Exam: Positive for: Normal appearance ENT: Positive for: Other (Mucous membranes dry) Neck: Positive for: Normal, Painless ROM Cardiovascular/Chest: Positive for: Regular Rate, Rhythm. Negative for: Murmur Respiratory: Positive for: Normal Breath Sounds. Negative for: Wheezing, Respiratory Distress Gastrointestinal/Abdominal: Positive for: Normal Exam, Soft. Negative for: Tenderness Extremity: Positive for: Normal ROM Neurologic/Psych: Positive for: Alert, Oriented. Negative for: Motor/Sensory Deficits - Laboratory Results Result Diagrams: 05/28/18 21:30 05/28/18 21:30 - ECG O2 Sat by Pulse Oximetry: 98 (RA) Pulse Ox Interpretation: Normal Medical Decision Making Medical Decision Makin:44 Initial Impression: 67 y/o female with nonspecific weakness insetting of autoimmune disorder Initial Plan: --ECG --CMP --Troponin --ED urine dipstick --CBC --ESR --Sodium chloride 1000mL IV --Methylprednisolone 125mg IV --Urinalysis 23:40 Labs reviewed, indicative of hyponatremia. Given patient's symptoms, patient will be placed under observation. Patient is diagnosed with hyponatremia, lupus, and arthritis. Patient care will be transferred to family practice resident . Scribe Attestation: Documented by Luiz Moise acting as a scribe for Valente Hennessy MD. Documented by Tiarra Watters acting as a scribe for Valente Hennessy MD. Provider Scribe Attestation: All medical record entries made by the Scribe were at my direction and personally dictated by me. I have reviewed the chart and agree that the record accurately reflects my personal performance of the history, physical exam, medical decision making, and the department course for this patient. I have also personally directed, reviewed, and agree with the discharge instructions and disposition. Disposition - Clinical Impression Clinical Impression: Hyponatremia - Patient ED Disposition Is Patient to be Admitted: Yes - Disposition Disposition Time: 23:40 Condition: FAIR - Pt Status Changed To: Hospital Disposition Of: Observation
[2018-05-28 22:38] LABS: URINE BILIRUBIN NEGATIVE (NEGATIVE); URINE BLOOD NEGATIVE (NEGATIVE); URINE CLARITY CLEAR (Clear); URINE COLOR STRAW (YELLOW); URINE GLUCOSE (UA) NEG (Normal); URINE LEUKOCYTE ESTERASE NEG Leu/uL (Negative); URINE PROTEIN NEGATIVE (NEGATIVE); URINE UROBILINOGEN 0.2-1.0 mg/dL (0.2-1.0)
--- NOTE | 2018-05-29 03:10 | CP.PCM.HP ---
Past Patient History - Infectious Disease Hx of Infectious Diseases: None - Past Medical History & Family History Past Medical History?: No - Past Social History Alcohol: None Drugs: Denies - CARDIAC Hx Hypertension: Yes - PULMONARY Hx Sleep Apnea: Yes - NEUROLOGICAL Hx Seizures: Yes - RENAL Hx Chronic Kidney Disease: Yes Hx Kidney Stones: Yes - ENDOCRINE/METABOLIC Hx Hypothyroidism: Yes - HEMATOLOGICAL/ONCOLOGICAL Other/Comment: Hx Auto Immune Hepatitis. Hx Lupus - MUSCULOSKELETAL/RHEUMATOLOGICAL Hx Arthritis: Yes Hx Osteoporosis: Yes Hx Rheumatoid Arthritis: Yes - GASTROINTESTINAL Hx Gastroesophageal Reflux: Yes - PSYCHIATRIC Hx Anxiety: Yes - SURGICAL HISTORY Hx Surgeries: Yes Other/Comment: Hx Bunionectomy - ANESTHESIA Hx Anesthesia: Yes Hx Anesthesia Reactions: No Hx Malignant Hyperthermia: No Meds Allergies/Adverse Reactions: Allergies Allergy/AdvReac Type Severity Reaction Status Date / Time amlodipine [From Norvasc] Allergy RASH Verified 05/28/18 20:39 aspirin Allergy RASH Verified 05/28/18 20:39 bupropion Allergy see below Verified 05/28/18 20:39 [From Wellbutrin SR] ciprofloxacin [From Cipro] Allergy RASH Verified 05/28/18 20:39 clopidogrel [From Plavix] Allergy bruising Verified 05/28/18 20:39 ibuprofen [From Motrin] Allergy RASH Verified 05/28/18 20:39 phenytoin [From Dilantin] Allergy RASH Verified 05/28/18 20:39 quetiapine [From Seroquel] AdvReac see below Verified 05/28/18 20:39 tramadol [From Ultram] AdvReac see below Verified 05/28/18 20:39 Results - Vital Signs Recent Vital Signs: Last Vital Signs Temp 97.9 F 05/28/18 20:39 Pulse 75 05/29/18 01:21 Resp 19 05/29/18 01:21 BP 160/99 H 05/29/18 01:21 Pulse Ox 97 05/29/18 01:21 - Labs Result Diagrams: 05/28/18 21:30 05/28/18 21:30 Labs: Laboratory Results - last 24 hr 05/28/18 05/28/18 05/28/18 21:30 21:30 21:42 WBC 4.9 RBC 4.63 Hgb 12.9 Hct 38.9 MCV 84.0 MCH 27.9 MCHC 33.2 RDW 13.9 Plt Count 168 MPV 8.0 Neut % (Auto) 72.2 Lymph % (Auto) 13.9 L [place] % (Auto) 11.7 H Eos % (Auto) 1.4 Baso % (Auto) 0.8 Neut # (Auto) 3.5 Lymph # (Auto) 0.7 L [place] # (Auto) 0.6 Eos # (Auto) 0.1 Baso # (Auto) 0.0 ESR 10 Sodium 127 L Potassium 5.0 Chloride 88 L Carbon Dioxide 31 H Anion Gap 13 BUN 17 Creatinine 0.9 Est GFR ( Amer) > 60 Est GFR (Non-Af Amer) > 60 Random Glucose 102 Calcium 8.6 Total Bilirubin 0.4 AST 41 H ALT 34 Alkaline Phosphatase 105 Troponin I < 0.0120 Total Protein 7.9 Albumin 4.2 Globulin 3.8 Albumin/Globulin Ratio 1.1 Urine Color Straw Urine Clarity Clear Urine pH 7.0 Ur Specific [place] 1.008 Urine Protein Negative Urine Glucose (UA) Neg Urine Ketones Negative Urine Blood Negative Urine Nitrate Negative Urine Bilirubin Negative Urine Urobilinogen 0.2-1.0 Ur Leukocyte Esterase Neg Urine RBC (Auto) 1 Urine Microscopic WBC < 1
--- NOTE | 2018-05-29 03:15 | CP.PCM.HP ---
Addendum entered and electronically signed by Seferino Lemons MD 05/29/18 15:50: S: Patient seen and examined this morning at bedside who is admitted here for evaluation and treatment of dizziness and hyponatremia. NAD, patient is ambulating, tolerating PO intake. PMH of Lupus, fibromyalgia, Hypothyroidism, Seizure Disorder and anxiety. O: VS reviewed, PE: AAOx3, CTBL, RRR, S1,S2 A/P: 67 y/o female with PMH of Lupus, fibromyalgia, Hypothyroidism, Seizure Disorder and anxiety who is admitted here for evaluation and treatment of dizziness and hyponatremia. Hyponatremia: Improved, s/p IVF, will increase Synthroid 125mcg from 100mcg, Serum Osm 276, Urine Osm 277 with Normal U Na+ and K+, Follow up with Nephrology consult Dizziness: Meclizine 12.5mg PO daily, MRI reviewed, Follow up with Cardiology HTN: Metoprolol 25 Q12H, Cozzar 100mg daily Hypothyroid: Synthroid 100mcg daily Seizure: Trileptal 300mg Q12H Anxiety: Xanax 0.25mg Q12H PRN GERD: Protonix 40mg daily Lupus/Fibromyalgia: Plaquenil 200mg Q12PO Daily, Oxycontin/Oxycodone DVT PPX: Lovenox 40mg SC --- Case discussed with Dr. Sen Lemons, PGY-II Original Note: <Lakhwinder Hawkins - Last Filed: 05/29/18 03:23> History of Present Illness - History of Present Illness History of Present Illness: 67 y/o female with PMHx of HTN, Lupus, Anxiety, depression presents for evaluation of dizziness and weakness. Pt reports she has been feeling chronically weak with this dizziness but this morning the symptoms worsened and did not improve in anyway, prompting her to come to the ER for evaluation. She reports the dizziness is as if the room is spinning around her. She realized it was worse when standing up. No associated nausea/vomiting. Pt reported generalized numbness and weakness during the episode and felt "as if she was going to and her life was ending". She also reports taking all prescribed meds. No insomnia the night before but took both ambien and xanax. No other complaints. PMD: Grace meds: as per med rec PMHx: HTN, Lupus, fibromylagia, insomina, anxiety ALL: as per EMR Psurghx: tonsilectomy, appendectomy socialhx: denies etoh/tobacco/drug abuse Present on Admission - Present on Admission Any Indicators Present on Admission: No History of DVT/PE: No History of Uncontrolled Diabetes: No Urinary Catheter: No Decubitus Ulcer Present: No Review of Systems - Constitutional Constitutional: Weakness - EENT Eyes: absent: Blurred Vision, Change in Vision Ears: Dizziness. absent: Decreased Hearing - Respiratory Respiratory: absent: Cough, Dyspnea, Dyspnea on Exertion Past Patient History - Infectious Disease Hx of Infectious Diseases: None - Past Medical History & Family History Past Medical History?: No - Past Social History Alcohol: None Drugs: Denies - CARDIAC Hx Hypertension: Yes - PULMONARY Hx Sleep Apnea: Yes - NEUROLOGICAL Hx Seizures: Yes - RENAL Hx Chronic Kidney Disease: Yes Hx Kidney Stones: Yes - ENDOCRINE/METABOLIC Hx Hypothyroidism: Yes - HEMATOLOGICAL/ONCOLOGICAL Other/Comment: Hx Auto Immune Hepatitis. Hx Lupus - MUSCULOSKELETAL/RHEUMATOLOGICAL Hx Arthritis: Yes Hx Osteoporosis: Yes Hx Rheumatoid Arthritis: Yes - GASTROINTESTINAL Hx Gastroesophageal Reflux: Yes - PSYCHIATRIC Hx Anxiety: Yes - SURGICAL HISTORY Hx Surgeries: Yes Other/Comment: Hx Bunionectomy - ANESTHESIA Hx Anesthesia: Yes Hx Anesthesia Reactions: No Hx Malignant Hyperthermia: No Meds Allergies/Adverse Reactions: Allergies Allergy/AdvReac Type Severity Reaction Status Date / Time amlodipine [From Norvasc] Allergy RASH Verified 05/28/18 20:39 aspirin Allergy RASH Verified 05/28/18 20:39 bupropion Allergy see below Verified 05/28/18 20:39 [From Wellbutrin SR] ciprofloxacin [From Cipro] Allergy RASH Verified 05/28/18 20:39 clopidogrel [From Plavix] Allergy bruising Verified 05/28/18 20:39 ibuprofen [From Motrin] Allergy RASH Verified 05/28/18 20:39 phenytoin [From Dilantin] Allergy RASH Verified 05/28/18 20:39 quetiapine [From Seroquel] AdvReac see below Verified 05/28/18 20:39 tramadol [From Ultram] AdvReac see below Verified 05/28/18 20:39 Physical Exam - Constitutional Appears: Non-toxic, No Acute Distress - Head Exam Head Exam: ATRAUMATIC, NORMOCEPHALIC - Eye Exam Eye Exam: EOMI. absent: Nystagmus, Scleral icterus Pupil Exam: PERRL - ENT Exam ENT Exam: Mucous Membranes Moist - Neck Exam Neck exam: Negative for: Lymphadenopathy - Respiratory Exam Respiratory Exam: Clear to Auscultation Bilateral, NORMAL BREATHING PATTERN. absent: Rales, Rhonchi, Wheezes - Cardiovascular Exam Cardiovascular Exam: REGULAR RHYTHM, RRR, +S1, +S2. absent: Tachycardia, Irregu lar Rhythm, JVD, Rubs, Systolic Murmur - Extremities Exam Extremities exam: Positive for: normal capillary refill, pedal edema, pedal pulses present - Neurological Exam Neurological exam: Abnormal Gait, Alert, CN II-XII Intact, Oriented x3 - Expanded Neurological Exam Expanded Cranial nerves: EOM's Intact: Normal, Facial Palsey w/Forehead Movement: Normal, Facial Palsey w/o Forehead Movement: Normal, Facial Sensation: Normal, Gag Reflex: Normal, Nystagmus: Normal, Tongue Deviation: Normal Cerebellar Function: Finger to Nose: Abnormal Right, Abnormal Left, Heel to [place]: Abnormal Left, Abnormal Right, Romberg: Abnormal Right, Abnormal Left Upper motor neuron: Dilan Neglect: Normal, Pronator Drift: Normal, Sensory Extinction: Normal Neuro motor strength exam: Left Upper Extremity: 4, Right Upper Extremity: 4, Left Lower Extremity: 4, Right Lower Extremity: 4 Coma Scale Eye Opening: SPONTANEOUS Coma Scale Motor Response: OBEYS COMMANDS - Psychiatric Exam Psychiatric exam: Anxious Additional comments: cries with further interviewing - Skin Skin Exam: Dry, Intact Results - Vital Signs Recent Vital Signs: Last Vital Signs Temp 97.9 F 05/28/18 20:39 Pulse 75 05/29/18 01:21 Resp 19 05/29/18 01:21 BP 160/99 H 05/29/18 01:21 Pulse Ox 97 05/29/18 01:21 - Labs Result Diagrams: 05/28/18 21:30 05/28/18 21:30 Labs: Laboratory Results - last 24 hr 05/28/18 05/28/18 05/28/18 21:30 21:30 21:42 WBC 4.9 RBC 4.63 Hgb 12.9 Hct 38.9 MCV 84.0 MCH 27.9 MCHC 33.2 RDW 13.9 Plt Count 168 MPV 8.0 Neut % (Auto) 72.2 Lymph % (Auto) 13.9 L [place] % (Auto) 11.7 H Eos % (Auto) 1.4 Baso % (Auto) 0.8 Neut # (Auto) 3.5 Lymph # (Auto) 0.7 L [place] # (Auto) 0.6 Eos # (Auto) 0.1 Baso # (Auto) 0.0 ESR 10 Sodium 127 L Potassium 5.0 Chloride 88 L Carbon Dioxide 31 H Anion Gap 13 BUN 17 Creatinine 0.9 Est GFR ( Amer) > 60 Est GFR (Non-Af Amer) > 60 Random Glucose 102 Calcium 8.6 Total Bilirubin 0.4 AST 41 H ALT 34 Alkaline Phosphatase 105 Troponin I < 0.0120 Total Protein 7.9 Albumin 4.2 Globulin 3.8 Albumin/Globulin Ratio 1.1 Urine Color Straw Urine Clarity Clear Urine pH 7.0 Ur Specific [place] 1.008 Urine Protein Negative Urine Glucose (UA) Neg Urine Ketones Negative Urine Blood Negative Urine Nitrate Negative Urine Bilirubin Negative Urine Urobilinogen 0.2-1.0 Ur Leukocyte Esterase Neg Urine RBC (Auto) 1 Urine Microscopic WBC < 1 Assessment & Plan - Assessment and Plan (Free Text) Assessment: 67 y/o female with extensive medical history admitted for dizziness, discoordination, and hyponatremia. Plan 1) Dizziness/discoordination -improve electrolyte imbalance -Brain MRI to evaluate posterior circulation -tele monitoring -orthostatics 2) Hypervolemic Hyponatremia -127 -s/p 1 L NS -serum osm pending -urine osm/lytes pending -TSH pending -8am cortisol pending 3) Anxiety -resume home medications -consider psych evaluation 4) Prophylaxis -lovenox 40mg sc qd 5) code status -full code <Jaleel Finley P - Last Filed: 05/29/18 06:52> Results - Vital Signs Recent Vital Signs: Last Vital Signs Temp 97.9 F 05/28/18 20:39 Pulse 77 05/29/18 04:31 Resp 17 05/29/18 04:31 BP 136/70 05/29/18 04:31 Pulse Ox 98 05/29/18 05:18 - Labs Result Diagrams: 05/28/18 21:30 05/28/18 21:30 Labs: Laboratory Results - last 24 hr 05/28/18 05/28/18 05/28/18 21:30 21:30 21:42 WBC 4.9 RBC 4.63 Hgb 12.9 Hct 38.9 MCV 84.0 MCH 27.9 MCHC 33.2 RDW 13.9 Plt Count 168 MPV 8.0 Neut % (Auto) 72.2 Lymph % (Auto) 13.9 L [place] % (Auto) 11.7 H Eos % (Auto) 1.4 Baso % (Auto) 0.8 Neut # (Auto) 3.5 Lymph # (Auto) 0.7 L [place] # (Auto) 0.6 Eos # (Auto) 0.1 Baso # (Auto) 0.0 ESR 10 Sodium 127 L Potassium 5.0 Chloride 88 L Carbon Dioxide 31 H Anion Gap 13 BUN 17 Creatinine 0.9 Est GFR ( Amer) > 60 Est GFR (Non-Af Amer) > 60 Random Glucose 102 Serum Osmolality Calcium 8.6 Total Bilirubin 0.4 AST 41 H ALT 34 Alkaline Phosphatase 105 Troponin I < 0.0120 Total Protein 7.9 Albumin 4.2 Globulin 3.8 Albumin/Globulin Ratio 1.1 TSH 3rd Generation Urine Color Straw Urine Clarity Clear Urine pH 7.0 Ur Specific [place] 1.008 Urine Protein Negative Urine Glucose (UA) Neg Urine Ketones Negative Urine Blood Negative Urine Nitrate Negative Urine Bilirubin Negative Urine Urobilinogen 0.2-1.0 Ur Leukocyte Esterase Neg Urine RBC (Auto) 1 Urine Microscopic WBC < 1 Urine Osmolality Ur Random Sodium Ur Random Potassium 05/29/18 05/29/18 05/29/18 04:55 04:55 04:55 WBC RBC Hgb Hct MCV MCH MCHC RDW Plt Count MPV Neut % (Auto) Lymph % (Auto) [place] % (Auto) Eos % (Auto) Baso % (Auto) Neut # (Auto) Lymph # (Auto) [place] # (Auto) Eos # (Auto) Baso # (Auto) ESR Sodium Potassium Chloride Carbon Dioxide Anion Gap BUN Creatinine Est GFR ( Amer) Est GFR (Non-Af Amer) Random Glucose Serum Osmolality 276 Calcium Total Bilirubin AST ALT Alkaline Phosphatase Troponin I Total Protein Albumin Globulin Albumin/Globulin Ratio TSH 3rd Generation 1.45 Urine Color Urine Clarity Urine pH Ur Specific [place] Urine Protein Urine Glucose (UA) Urine Ketones Urine Blood Urine Nitrate Urine Bilirubin Urine Urobilinogen Ur Leukocyte Esterase Urine RBC (Auto) Urine Microscopic WBC Urine Osmolality 277 L Ur Random Sodium 35 Ur Random Potassium 36.6 Attending/Attestation - Attestation I have personally seen and examined this patient.: Yes I have fully participated in the care of the patient.: Yes I have reviewed all pertinent clinical information: Yes Notes (Text): Assessmen Dizzness ?Co ordination difficulty vs deconditioning Mental anxiety Poly pharmacy Low sodium- euvolemic vascular, with edema Plan Urine osm to assess SIADH, am Na, feNa for intravascular volume status MRI brain for inco-ordination Out patient psych for anxiety for fear of dying. Currently continuing home meds DVT prophylaxis See orders for detail.
--- NOTE | 2018-05-29 06:55 | CARD ---
APPROVED REPORT Date of service: 05/28/2018 EKG Measurement Heart [id number] <Conclusion> Normal sinus rhythm Normal ECG
[2018-05-29 07:11] LABS: HEMOGLOBIN 12.6 g/dL (12.0-16.0); MEAN CELL VOLUME 83.5 fl (81.0-99.0); MEAN CORPUSCULAR HEMOGLOBIN 27.8 pg (27.0-31.0); MEAN CORPUSCULAR HGB CONC 33.2 g/dL (33.0-37.0); RBC 4.55 Mil/uL (3.80-5.20); RED CELL DISTRIBUTION WIDTH 13.8 % (11.5-14.5); WHITE BLOOD COUNT 3.9 K/uL (4.8-10.8)
[2018-05-29] MEDS ORDERED: Albuterol HFA 90 mcg/actuation (8 g) INH PRN (07:23)
[2018-05-29 07:26] LABS: ALB/GLOB RATIO 1.1 (1.0-2.1); ALBUMIN 3.7 g/dL (3.5-5.0); ALT/SGPT 32 U/L (9-52); AST/SGOT 32 U/L (14-36); BLOOD UREA NITROGEN 14 mg/dl (7-17); CALCIUM 8.6 mg/dL (8.4-10.2); GFR NON-AFRICAN AMERICAN > 60
[2018-05-29] MEDS ORDERED: oxyCODONE 10 mg ER Tab (oxyCONTIN) PO SCH (09:00)
[2018-05-29] MEDS ORDERED: Enoxaparin 40 mg Syringe SC SCH (09:00)
[2018-05-29] MEDS ORDERED: Levothyroxine 100 MCG TAB PO SCH (09:00)
[2018-05-29] MEDS ORDERED: Pantoprazole 40 mg EC Tab PO SCH (09:00)
[2018-05-29] MEDS ORDERED: XANAX 0.25 MG PO PRN ×2 (09:15→11:00)
[2018-05-29] MEDS ORDERED: SYNTHROID 100 MCG PO SCH ×2 (09:30→10:00)
[2018-05-29] MEDS ORDERED: PROTONIX 40 MG PO SCH (09:45)
[2018-05-29] MEDS ORDERED: METOPROLOL TARTRATE 25 MG PO SCH (09:45)
--- NOTE | 2018-05-29 11:35 | MRI ---
Date of service: 05/29/2018 PROCEDURE: MRI BRAIN WITHOUT CONTRAST HISTORY: ataxia/dizziness COMPARISON: None available. TECHNIQUE: Multiplanar, multisequence MR images of the brain were obtained without intravenous contrast enhancement. FINDINGS: HEMORRHAGE: None DWI: No evidence of an acute or early subacute infarction. BRAIN PARENCHYMA: There are moderate chronic microangiopathic changes. There is no mass, mass effect or abnormal extra-axial fluid collection. There is no territorial infarction. The midline sagittal structures are normal. VENTRICLES: There is mild age-related global parenchymal volume loss and proportionate enlargement of the ventricles and cortical sulci. 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 CRANIUM: There is normal bone marrow signal pattern. ORBITS: Grossly unremarkable. PARANASAL SINUSES/MASTOIDS: Predominantly clear. VASCULAR SYSTEM: There are normal signal voids in the larger intracranial arteries. OTHER FINDINGS: None. IMPRESSION: No acute intracranial abnormality. Moderate chronic microangiopathic changes and mild age-related global parenchymal volume loss.
[2018-05-29] MEDS: Fluticasone-Salmeterol 250-50mcg Diskus INH SCH ×2 (13:23→20:53)
[2018-05-29] MEDS: HYDROXYCHLOROQUINE 200 MG PO SCH ×2 (13:25→20:57)
[2018-05-29] MEDS: COZAAR 100 MG PO SCH (13:26)
[2018-05-29] MEDS: PROTONIX 40 MG PO SCH ×2 (13:28→13:39)
[2018-05-29] MEDS: THIAMINE 100 MG PO SCH (13:28)
[2018-05-29] MEDS: TRILEPTAL 300 MG PO SCH ×2 (13:28→20:57)
[2018-05-29] MEDS: OXYCONTIN 10 MG PO SCH ×2 (15:09→21:00)
[2018-05-29] MEDS: METOPROLOL TARTRATE 25 MG PO SCH ×3 (15:10→16:19)
[2018-05-29] MEDS: OXYCODONE PO PRN ×2 (15:16→22:21)
--- NOTE | 2018-05-29 16:33 | CP.PCM.CON ---
History of Present Illness - History of Present Illness History of Present Illness: 67 y/o female with PMH of Lupus, fibromyalgia, Hypothyroidism, Seizure Disorder and anxiety who is admitted here for evaluation and treatment of dizziness and hyponatremia. pt on evaluation reported history of depression and anxiety started in 2002 due to conflict at work, has hx of outpatient psychiatric treatment yet no hx of psychiatric hospitalizations pt reported that she was placed on wellbutrin then which at higher dose resulted in seizures , currently not in formal psychiatric treatment , reported feeling depressed and lonely mainly due to her current medical condition/ LUPUS feeling worried about loosing her life pt reported normal sleep but decreased appetite, reported having panic attacks mainly in the evening time with sense of dome and fear , and difficulty breathing, pt denied any current suicidal thoughts or intent , denied manic symptoms denied psychotic symptoms, denied substance use has been placed by PMD on xanax as needed, also reported multiple allergic reactions to different antidepressants due to the effect of Lupus on liver and kidney with partially impaired metabolism pt alert and awake ox3 Past Patient History - Infectious Disease Hx of Infectious Diseases: None - Past Medical History & Family History Past Medical History?: No - Past Social History Alcohol: None Drugs: Denies - CARDIAC Hx Cardiac Disorders: Yes - PULMONARY Hx Respiratory Disorders: No - NEUROLOGICAL Hx Neurological Disorder: Yes - HEENT Hx HEENT Problems: No - RENAL Hx Chronic Kidney Disease: Yes - ENDOCRINE/METABOLIC Hx Hypothyroidism: Yes - HEMATOLOGICAL/ONCOLOGICAL Hx Blood Disorders: No - INTEGUMENTARY Hx Dermatological Problems: No - MUSCULOSKELETAL/RHEUMATOLOGICAL Hx Musculoskeletal Disorders: Yes - GASTROINTESTINAL Hx Gastroesophageal Reflux: Yes - GENITOURINARY/GYNECOLOGICAL Hx Genitourinary Disorders: No - PSYCHIATRIC Hx Psychophysiologic Disorder: Yes - SURGICAL HISTORY Hx Surgeries: Yes Other/Comment: Hx Bunionectomy - ANESTHESIA Hx Anesthesia: Yes Hx Anesthesia Reactions: No Hx Malignant Hyperthermia: No Meds Allergies/Adverse Reactions: Allergies Allergy/AdvReac Type Severity Reaction Status Date / Time amlodipine [From Norvasc] Allergy RASH Verified 05/28/18 20:39 aspirin Allergy RASH Verified 05/28/18 20:39 bupropion Allergy see below Verified 05/28/18 20:39 [From Wellbutrin SR] ciprofloxacin [From Cipro] Allergy RASH Verified 05/28/18 20:39 clopidogrel [From Plavix] Allergy bruising Verified 05/28/18 20:39 ibuprofen [From Motrin] Allergy RASH Verified 05/28/18 20:39 phenytoin [From Dilantin] Allergy RASH Verified 05/28/18 20:39 quetiapine [From Seroquel] AdvReac see below Verified 05/28/18 20:39 tramadol [From Ultram] AdvReac see below Verified 05/28/18 20:39 - Medications Medications: Current Medications Acetaminophen (Tylenol 325mg Tab) 650 mg PO Q6 PRN PRN Reason: Headache Last Admin: 05/29/18 15:02 Dose: 650 mg Albuterol (Ventolin Hfa 90 Mcg/Actuation (8 G)) 2 puff INH Q6 PRN PRN Reason: Shortness of Breath Home Med (Patient's Own Medication) 1 unit PO SUN GWEN Home Med (Oxycodone [Oxycodone Immediate Release Tab]) 15 mg PO Q6H PRN PRN Reason: Pain, moderate (4-7) Last Admin: 05/29/18 15:16 Dose: 15 mg Home Med (Patient's Own Medication) 1 unit PO Q12 GWEN Stop: 06/01/18 09:01 Last Admin: 05/29/18 15:09 Dose: 1 unit Home Med (Patient's Own Medication) 1 unit PO Q12 GWEN; Protocol Last Admin: 05/29/18 13:25 Dose: 1 unit Home Med (Patient's Own Medication) 1 unit PO DAILY GWEN Last Admin: 05/29/18 13:26 Dose: 1 unit Home Med (Patient's Own Medication) 1 unit PO DAILY GWEN Last Admin: 05/29/18 13:28 Dose: 1 unit Home Med (Patient's Own Medication) 1 unit PO Q12 GEWN Last Admin: 05/29/18 13:28 Dose: 1 unit Home Med (Patient's Own Medication) 1 unit PO DAILY GWEN Last Admin: 05/29/18 13:39 Dose: Not Given Home Med (Patient's Own Medication) 1 unit PO DAILY@0630 GWEN Last Admin: 05/29/18 13:28 Dose: 1 unit Home Med (Patient's Own Medication) 1 unit PO Q12 PRN PRN Reason: Anxiety Home Med (Patient's Own Medication) 1 unit PO Q12H GWEN Last Admin: 05/29/18 16:19 Dose: 1 unit Hydralazine HCl (Apresoline) 50 mg PO Q6 PRN PRN Reason: Systolic Blood Pressure Meclizine HCl (Antivert) 12.5 mg PO DAILY PRN PRN Reason: Dizziness Fluticasone/Salmeterol (Advair Diskus 250/50) 1 puff INH Q12 GWEN Last Admin: 05/29/18 13:23 Dose: 1 puff Results - Vital Signs Recent Vital Signs: Last Vital Signs Temp 97.9 F 05/29/18 15:59 Pulse 91 H 05/29/18 15:59 Resp 18 05/29/18 15:59 BP 197/96 H 05/29/18 15:59 Pulse Ox 97 05/29/18 15:59 - Labs Result Diagrams: 05/29/18 06:50 05/29/18 06:50 Labs: Laboratory Results - last 24 hr 05/28/18 05/28/18 05/28/18 21:30 21:30 21:42 WBC 4.9 RBC 4.63 Hgb 12.9 Hct 38.9 MCV 84.0 MCH 27.9 MCHC 33.2 RDW 13.9 Plt Count 168 MPV 8.0 Neut % (Auto) 72.2 Lymph % (Auto) 13.9 L [place] % (Auto) 11.7 H Eos % (Auto) 1.4 Baso % (Auto) 0.8 Neut # (Auto) 3.5 Lymph # (Auto) 0.7 L [place] # (Auto) 0.6 Eos # (Auto) 0.1 Baso # (Auto) 0.0 ESR 10 Sodium 127 L Potassium 5.0 Chloride 88 L Carbon Dioxide 31 H Anion Gap 13 BUN 17 Creatinine 0.9 Est GFR ( Amer) > 60 Est GFR (Non-Af Amer) > 60 Random Glucose 102 Serum Osmolality Calcium 8.6 Total Bilirubin 0.4 AST 41 H ALT 34 Alkaline Phosphatase 105 Troponin I < 0.0120 Total Protein 7.9 Albumin 4.2 Globulin 3.8 Albumin/Globulin Ratio 1.1 TSH 3rd Generation Cortisol AM Sample Urine Color Straw Urine Clarity Clear Urine pH 7.0 Ur Specific [place] 1.008 Urine Protein Negative Urine Glucose (UA) Neg Urine Ketones Negative Urine Blood Negative Urine Nitrate Negative Urine Bilirubin Negative Urine Urobilinogen 0.2-1.0 Ur Leukocyte Esterase Neg Urine RBC (Auto) 1 Urine Microscopic WBC < 1 Urine Osmolality Ur Random Sodium Ur Random Potassium 05/29/18 05/29/18 05/29/18 04:55 04:55 04:55 WBC RBC Hgb Hct MCV MCH MCHC RDW Plt Count MPV Neut % (Auto) Lymph % (Auto) [place] % (Auto) Eos % (Auto) Baso % (Auto) Neut # (Auto) Lymph # (Auto) [place] # (Auto) Eos # (Auto) Baso # (Auto) ESR Sodium Potassium Chloride Carbon Dioxide Anion Gap BUN Creatinine Est GFR ( Amer) Est GFR (Non-Af Amer) Random Glucose Serum Osmolality 276 Calcium Total Bilirubin AST ALT Alkaline Phosphatase Troponin I Total Protein Albumin Globulin Albumin/Globulin Ratio TSH 3rd Generation 1.45 Cortisol AM Sample Urine Color Urine Clarity Urine pH Ur Specific [place] Urine Protein Urine Glucose (UA) Urine Ketones Urine Blood Urine Nitrate Urine Bilirubin Urine Urobilinogen Ur Leukocyte Esterase Urine RBC (Auto) Urine Microscopic WBC Urine Osmolality 277 L Ur Random Sodium 35 Ur Random Potassium 36.6 05/29/18 05/29/18 05/29/18 06:50 06:50 06:50 WBC 3.9 L RBC 4.55 Hgb 12.6 Hct 38.0 MCV 83.5 MCH 27.8 MCHC 33.2 RDW 13.8 Plt Count 163 MPV Neut % (Auto) Lymph % (Auto) [place] % (Auto) Eos % (Auto) Baso % (Auto) Neut # (Auto) Lymph # (Auto) [place] # (Auto) Eos # (Auto) Baso # (Auto) ESR Sodium 131 L Potassium 4.6 Chloride 94 L Carbon Dioxide 27 Anion Gap 15 BUN 14 Creatinine 0.8 Est GFR ( Amer) > 60 Est GFR (Non-Af Amer) > 60 Random Glucose 153 H Serum Osmolality Calcium 8.6 Total Bilirubin 0.3 AST 32 ALT 32 Alkaline Phosphatase 92 Troponin I Total Protein 7.2 Albumin 3.7 Globulin 3.4 Albumin/Globulin Ratio 1.1 TSH 3rd Generation Cortisol AM Sample 3.2 L Urine Color Urine Clarity Urine pH Ur Specific [place] Urine Protein Urine Glucose (UA) Urine Ketones Urine Blood Urine Nitrate Urine Bilirubin Urine Urobilinogen Ur Leukocyte Esterase Urine RBC (Auto) Urine Microscopic WBC Urine Osmolality Ur Random Sodium Ur Random Potassium Assessment & Plan - Assessment and Plan (Free Text) Assessment: mood disorder due to medical condition panic disorder depressive disorder Plan: recommend starting pt on klonopin 0.25mg bid prn for anxiety as has longer half life and less habit forming compared to xanax pt to be referred to [facility] outpatient psychiatric services prior to discharge
--- NOTE | 2018-05-29 19:56 | CP.PCM.CON ---
Past Patient History - Infectious Disease Hx of Infectious Diseases: None - Past Medical History & Family History Past Medical History?: Yes - Past Social History Smoking Status: Never Smoked - CARDIAC Hx Cardiac Disorders: Yes Hx Hypertension: Yes - PULMONARY Hx Respiratory Disorders: No - NEUROLOGICAL Hx Neurological Disorder: Yes Hx Seizures: Yes Other/Comment: fibromyalgia - HEENT Hx HEENT Problems: No - RENAL Hx Chronic Kidney Disease: Yes Hx Kidney Stones: Yes - ENDOCRINE/METABOLIC Hx Endocrine Disorders: Yes Hx Hypothyroidism: Yes Hx Systemic Lupus Erythematosus: Yes - HEMATOLOGICAL/ONCOLOGICAL Hx Blood Disorders: No - INTEGUMENTARY Hx Dermatological Problems: No - MUSCULOSKELETAL/RHEUMATOLOGICAL Hx Musculoskeletal Disorders: Yes Hx Falls: Yes Hx Herniated Disk: Yes Hx Rheumatoid Arthritis: Yes - GASTROINTESTINAL Hx Gastrointestinal Disorders: Yes Hx Gastroesophageal Reflux: Yes - GENITOURINARY/GYNECOLOGICAL Hx Genitourinary Disorders: No - PSYCHIATRIC Hx Psychophysiologic Disorder: Yes Hx Anxiety: Yes Hx Depression: Yes Hx Substance Use: No - SURGICAL HISTORY Hx Surgeries: Yes Hx Section: Yes Hx Tonsillectomy: Yes Other/Comment: Hx Bunionectomy - ANESTHESIA Hx Anesthesia: Yes Hx Anesthesia Reactions: No Hx Malignant Hyperthermia: No Has any member of the family had a problem w/ anesthesia?: No Meds Allergies/Adverse Reactions: Allergies Allergy/AdvReac Type Severity Reaction Status Date / Time amlodipine [From Norvasc] Allergy RASH Verified 05/28/18 20:39 aspirin Allergy RASH Verified 05/28/18 20:39 bupropion Allergy see below Verified 05/28/18 20:39 [From Wellbutrin SR] ciprofloxacin [From Cipro] Allergy RASH Verified 05/28/18 20:39 clopidogrel [From Plavix] Allergy bruising Verified 05/28/18 20:39 ibuprofen [From Motrin] Allergy RASH Verified 05/28/18 20:39 phenytoin [From Dilantin] Allergy RASH Verified 05/28/18 20:39 quetiapine [From Seroquel] AdvReac see below Verified 05/28/18 20:39 tramadol [From Ultram] AdvReac see below Verified 05/28/18 20:39 - Medications Medications: Current Medications Acetaminophen (Tylenol 325mg Tab) 650 mg PO Q6 PRN PRN Reason: Headache Last Admin: 05/29/18 15:02 Dose: 650 mg Albuterol (Ventolin Hfa 90 Mcg/Actuation (8 G)) 2 puff INH Q6 PRN PRN Reason: Shortness of Breath Home Med (Patient's Own Medication) 1 unit PO SUN [facility] Home Med (Oxycodone [Oxycodone Immediate Release Tab]) 15 mg PO Q6H PRN PRN Reason: Pain, moderate (4-7) Last Admin: 05/29/18 15:16 Dose: 15 mg Home Med (Patient's Own Medication) 1 unit PO Q12 [facility] Stop: 06/01/18 09:01 Last Admin: 05/29/18 15:09 Dose: 1 unit Home Med (Patient's Own Medication) 1 unit PO Q12 [facility]; Protocol Last Admin: 05/29/18 13:25 Dose: 1 unit Home Med (Patient's Own Medication) 1 unit PO DAILY [facility] Last Admin: 05/29/18 13:26 Dose: 1 unit Home Med (Patient's Own Medication) 1 unit PO DAILY [facility] Last Admin: 05/29/18 13:28 Dose: 1 unit Home Med (Patient's Own Medication) 1 unit PO Q12 [facility] Last Admin: 05/29/18 13:28 Dose: 1 unit Home Med (Patient's Own Medication) 1 unit PO DAILY [facility] Last Admin: 05/29/18 13:39 Dose: Not Given Home Med (Patient's Own Medication) 1 unit PO Q12 PRN PRN Reason: Anxiety Home Med (Patient's Own Medication) 1 unit PO Q12H [facility] Last Admin: 05/29/18 16:19 Dose: 1 unit Hydralazine HCl (Apresoline) 50 mg PO Q6 PRN PRN Reason: Systolic Blood Pressure Last Admin: 05/29/18 16:49 Dose: 50 mg Levothyroxine Sodium (Synthroid) 125 mcg PO DAILY@0630 [facility] Meclizine HCl (Antivert) 12.5 mg PO DAILY PRN PRN Reason: Dizziness Fluticasone/Salmeterol (Advair Diskus 250/50) 1 puff INH Q12 [facility] Last Admin: 05/29/18 13:23 Dose: 1 puff Results - Vital Signs Recent Vital Signs: Last Vital Signs Temp 97.9 F 05/29/18 15:59 Pulse 76 05/29/18 18:12 Resp 20 05/29/18 17:23 BP 135/71 05/29/18 18:12 Pulse Ox 97 05/29/18 15:59 - Labs Result Diagrams: 05/29/18 06:50 05/29/18 06:50 Labs: Laboratory Results - last 24 hr 05/28/18 05/28/18 05/28/18 21:30 21:30 21:42 WBC 4.9 RBC 4.63 Hgb 12.9 Hct 38.9 MCV 84.0 MCH 27.9 MCHC 33.2 RDW 13.9 Plt Count 168 MPV 8.0 Neut % (Auto) 72.2 Lymph % (Auto) 13.9 L [place] % (Auto) 11.7 H Eos % (Auto) 1.4 Baso % (Auto) 0.8 Neut # (Auto) 3.5 Lymph # (Auto) 0.7 L [place] # (Auto) 0.6 Eos # (Auto) 0.1 Baso # (Auto) 0.0 ESR 10 Sodium 127 L Potassium 5.0 Chloride 88 L Carbon Dioxide 31 H Anion Gap 13 BUN 17 Creatinine 0.9 Est GFR ( Amer) > 60 Est GFR (Non-Af Amer) > 60 Random Glucose 102 Serum Osmolality Calcium 8.6 Total Bilirubin 0.4 AST 41 H ALT 34 Alkaline Phosphatase 105 Troponin I < 0.0120 Total Protein 7.9 Albumin 4.2 Globulin 3.8 Albumin/Globulin Ratio 1.1 TSH 3rd Generation Cortisol AM Sample Urine Color Straw Urine Clarity Clear Urine pH 7.0 Ur Specific [place] 1.008 Urine Protein Negative Urine Glucose (UA) Neg Urine Ketones Negative Urine Blood Negative Urine Nitrate Negative Urine Bilirubin Negative Urine Urobilinogen 0.2-1.0 Ur Leukocyte Esterase Neg Urine RBC (Auto) 1 Urine Microscopic WBC < 1 Urine Osmolality Ur Random Sodium Ur Random Potassium 05/29/18 05/29/18 05/29/18 04:55 04:55 04:55 WBC RBC Hgb Hct MCV MCH MCHC RDW Plt Count MPV Neut % (Auto) Lymph % (Auto) [place] % (Auto) Eos % (Auto) Baso % (Auto) Neut # (Auto) Lymph # (Auto) [place] # (Auto) Eos # (Auto) Baso # (Auto) ESR Sodium Potassium Chloride Carbon Dioxide Anion Gap BUN Creatinine Est GFR ( Amer) Est GFR (Non-Af Amer) Random Glucose Serum Osmolality 276 Calcium Total Bilirubin AST ALT Alkaline Phosphatase Troponin I Total Protein Albumin Globulin Albumin/Globulin Ratio TSH 3rd Generation 1.45 Cortisol AM Sample Urine Color Urine Clarity Urine pH Ur Specific [place] Urine Protein Urine Glucose (UA) Urine Ketones Urine Blood Urine Nitrate Urine Bilirubin Urine Urobilinogen Ur Leukocyte Esterase Urine RBC (Auto) Urine Microscopic WBC Urine Osmolality 277 L Ur Random Sodium 35 Ur Random Potassium 36.6 05/29/18 05/29/18 05/29/18 06:50 06:50 06:50 WBC 3.9 L RBC 4.55 Hgb 12.6 Hct 38.0 MCV 83.5 MCH 27.8 MCHC 33.2 RDW 13.8 Plt Count 163 MPV Neut % (Auto) Lymph % (Auto) [place] % (Auto) Eos % (Auto) Baso % (Auto) Neut # (Auto) Lymph # (Auto) [place] # (Auto) Eos # (Auto) Baso # (Auto) ESR Sodium 131 L Potassium 4.6 Chloride 94 L Carbon Dioxide 27 Anion Gap 15 BUN 14 Creatinine 0.8 Est GFR ( Amer) > 60 Est GFR (Non-Af Amer) > 60 Random Glucose 153 H Serum Osmolality Calcium 8.6 Total Bilirubin 0.3 AST 32 ALT 32 Alkaline Phosphatase 92 Troponin I Total Protein 7.2 Albumin 3.7 Globulin 3.4 Albumin/Globulin Ratio 1.1 TSH 3rd Generation Cortisol AM Sample 3.2 L Urine Color Urine Clarity Urine pH Ur Specific [place] Urine Protein Urine Glucose (UA) Urine Ketones Urine Blood Urine Nitrate Urine Bilirubin Urine Urobilinogen Ur Leukocyte Esterase Urine RBC (Auto) Urine Microscopic WBC Urine Osmolality Ur Random Sodium Ur Random Potassium
--- NOTE | 2018-05-29 20:18 | CP.PCM.CON ---
History of Present Illness - History of Present Illness History of Present Illness: THE PATIENT IS A 67 YEAR OLD FEMALE KNOWN TO ME FROM MY OFFICE PRACTICE AND PRIOR [facility] ADMISSIONS. SHE HAS MANY MEDICAL PROBLEMS INCLUDING ANXIETY, DEPRESSION, HYPERTENSION, FIBROMYALGIA, SLE, HYPOTHYROIDISM AND SEIZURES. SHE WAS ADMITTED TO [facility] IN OCTOBER OF 2017 FOR CHEST PAIN AND HAD A NEGATIVE PHARMACOLOGICAL STRESS TEST. SHE WAS NOW ADMITTED FOR EXTREME WEAKNESS, DIZZINESS, HYPERTENSION AND HYPONATREMIA. I WAS ASKED TO FOLLOW HER. SHE IS PRESENTLY CHEST PAIN FREE AND DENIES SOB. Past Patient History - Infectious Disease Hx of Infectious Diseases: None - Past Medical History & Family History Past Medical History?: Yes - Past Social History Smoking Status: Never Smoked - CARDIAC Hx Cardiac Disorders: Yes Hx Hypertension: Yes - PULMONARY Hx Respiratory Disorders: No - NEUROLOGICAL Hx Neurological Disorder: Yes Hx Seizures: Yes Other/Comment: fibromyalgia - HEENT Hx HEENT Problems: No - RENAL Hx Chronic Kidney Disease: Yes Hx Kidney Stones: Yes - ENDOCRINE/METABOLIC Hx Endocrine Disorders: Yes Hx Hypothyroidism: Yes Hx Systemic Lupus Erythematosus: Yes - HEMATOLOGICAL/ONCOLOGICAL Hx Blood Disorders: No - INTEGUMENTARY Hx Dermatological Problems: No - MUSCULOSKELETAL/RHEUMATOLOGICAL Hx Musculoskeletal Disorders: Yes Hx Falls: Yes Hx Herniated Disk: Yes Hx Rheumatoid Arthritis: Yes - GASTROINTESTINAL Hx Gastrointestinal Disorders: Yes Hx Gastroesophageal Reflux: Yes - GENITOURINARY/GYNECOLOGICAL Hx Genitourinary Disorders: No - PSYCHIATRIC Hx Psychophysiologic Disorder: Yes Hx Anxiety: Yes Hx Depression: Yes Hx Substance Use: No - SURGICAL HISTORY Hx Surgeries: Yes Hx Section: Yes Hx Tonsillectomy: Yes Other/Comment: Hx Bunionectomy - ANESTHESIA Hx Anesthesia: Yes Hx Anesthesia Reactions: No Hx Malignant Hyperthermia: No Has any member of the family had a problem w/ anesthesia?: No Meds Allergies/Adverse Reactions: Allergies Allergy/AdvReac Type Severity Reaction Status Date / Time amlodipine [From Norvasc] Allergy RASH Verified 05/28/18 20:39 aspirin Allergy RASH Verified 05/28/18 20:39 bupropion Allergy see below Verified 05/28/18 20:39 [From Wellbutrin SR] ciprofloxacin [From Cipro] Allergy RASH Verified 05/28/18 20:39 clopidogrel [From Plavix] Allergy bruising Verified 05/28/18 20:39 ibuprofen [From Motrin] Allergy RASH Verified 05/28/18 20:39 phenytoin [From Dilantin] Allergy RASH Verified 05/28/18 20:39 quetiapine [From Seroquel] AdvReac see below Verified 05/28/18 20:39 tramadol [From Ultram] AdvReac see below Verified 05/28/18 20:39 - Medications Medications: Current Medications Acetaminophen (Tylenol 325mg Tab) 650 mg PO Q6 PRN PRN Reason: Headache Last Admin: 05/29/18 15:02 Dose: 650 mg Albuterol (Ventolin Hfa 90 Mcg/Actuation (8 G)) 2 puff INH Q6 PRN PRN Reason: Shortness of Breath Home Med (Patient's Own Medication) 1 unit PO SUN [facility] Home Med (Oxycodone [Oxycodone Immediate Release Tab]) 15 mg PO Q6H PRN PRN Reason: Pain, moderate (4-7) Last Admin: 05/29/18 15:16 Dose: 15 mg Home Med (Patient's Own Medication) 1 unit PO Q12 [facility] Stop: 06/01/18 09:01 Last Admin: 05/29/18 15:09 Dose: 1 unit Home Med (Patient's Own Medication) 1 unit PO Q12 [facility]; Protocol Last Admin: 05/29/18 13:25 Dose: 1 unit Home Med (Patient's Own Medication) 1 unit PO DAILY [facility] Last Admin: 05/29/18 13:26 Dose: 1 unit Home Med (Patient's Own Medication) 1 unit PO DAILY [facility] Last Admin: 05/29/18 13:28 Dose: 1 unit Home Med (Patient's Own Medication) 1 unit PO Q12 [facility] Last Admin: 05/29/18 13:28 Dose: 1 unit Home Med (Patient's Own Medication) 1 unit PO DAILY [facility] Last Admin: 05/29/18 13:39 Dose: Not Given Home Med (Patient's Own Medication) 1 unit PO Q12 PRN PRN Reason: Anxiety Home Med (Patient's Own Medication) 1 unit PO Q12H [facility] Last Admin: 05/29/18 16:19 Dose: 1 unit Hydralazine HCl (Apresoline) 50 mg PO Q6 PRN PRN Reason: Systolic Blood Pressure Last Admin: 05/29/18 16:49 Dose: 50 mg Levothyroxine Sodium (Synthroid) 125 mcg PO DAILY@0630 [facility] Meclizine HCl (Antivert) 12.5 mg PO DAILY PRN PRN Reason: Dizziness Fluticasone/Salmeterol (Advair Diskus 250/50) 1 puff INH Q12 [facility] Last Admin: 05/29/18 13:23 Dose: 1 puff Physical Exam - Respiratory Exam Respiratory Exam: Clear to Auscultation Bilateral - Cardiovascular Exam Cardiovascular Exam: REGULAR RHYTHM, +S1, +S2 - Extremities Exam Additional comments: NO SIGNIFICANT LE EDEMA - Additional Findings Additional findings: TROPONIN NEGATIVE NA 127 Results - Vital Signs Recent Vital Signs: Last Vital Signs Temp 97.9 F 05/29/18 15:59 Pulse 76 05/29/18 18:12 Resp 20 05/29/18 17:23 BP 135/71 05/29/18 18:12 Pulse Ox 97 05/29/18 15:59 - Labs Result Diagrams: 05/29/18 06:50 05/29/18 06:50 Labs: Laboratory Results - last 24 hr 05/28/18 05/28/18 05/28/18 21:30 21:30 21:42 WBC 4.9 RBC 4.63 Hgb 12.9 Hct 38.9 MCV 84.0 MCH 27.9 MCHC 33.2 RDW 13.9 Plt Count 168 MPV 8.0 Neut % (Auto) 72.2 Lymph % (Auto) 13.9 L [place] % (Auto) 11.7 H Eos % (Auto) 1.4 Baso % (Auto) 0.8 Neut # (Auto) 3.5 Lymph # (Auto) 0.7 L [place] # (Auto) 0.6 Eos # (Auto) 0.1 Baso # (Auto) 0.0 ESR 10 Sodium 127 L Potassium 5.0 Chloride 88 L Carbon Dioxide 31 H Anion Gap 13 BUN 17 Creatinine 0.9 Est GFR ( Amer) > 60 Est GFR (Non-Af Amer) > 60 Random Glucose 102 Serum Osmolality Calcium 8.6 Total Bilirubin 0.4 AST 41 H ALT 34 Alkaline Phosphatase 105 Troponin I < 0.0120 Total Protein 7.9 Albumin 4.2 Globulin 3.8 Albumin/Globulin Ratio 1.1 TSH 3rd Generation Cortisol AM Sample Urine Color Straw Urine Clarity Clear Urine pH 7.0 Ur Specific [place] 1.008 Urine Protein Negative Urine Glucose (UA) Neg Urine Ketones Negative Urine Blood Negative Urine Nitrate Negative Urine Bilirubin Negative Urine Urobilinogen 0.2-1.0 Ur Leukocyte Esterase Neg Urine RBC (Auto) 1 Urine Microscopic WBC < 1 Urine Osmolality Ur Random Sodium Ur Random Potassium 05/29/18 05/29/18 05/29/18 04:55 04:55 04:55 WBC RBC Hgb Hct MCV MCH MCHC RDW Plt Count MPV Neut % (Auto) Lymph % (Auto) [place] % (Auto) Eos % (Auto) Baso % (Auto) Neut # (Auto) Lymph # (Auto) [place] # (Auto) Eos # (Auto) Baso # (Auto) ESR Sodium Potassium Chloride Carbon Dioxide Anion Gap BUN Creatinine Est GFR ( Amer) Est GFR (Non-Af Amer) Random Glucose Serum Osmolality 276 Calcium Total Bilirubin AST ALT Alkaline Phosphatase Troponin I Total Protein Albumin Globulin Albumin/Globulin Ratio TSH 3rd Generation 1.45 Cortisol AM Sample Urine Color Urine Clarity Urine pH Ur Specific [place] Urine Protein Urine Glucose (UA) Urine Ketones Urine Blood Urine Nitrate Urine Bilirubin Urine Urobilinogen Ur Leukocyte Esterase Urine RBC (Auto) Urine Microscopic WBC Urine Osmolality 277 L Ur Random Sodium 35 Ur Random Potassium 36.6 05/29/18 05/29/18 05/29/18 06:50 06:50 06:50 WBC 3.9 L RBC 4.55 Hgb 12.6 Hct 38.0 MCV 83.5 MCH 27.8 MCHC 33.2 RDW 13.8 Plt Count 163 MPV Neut % (Auto) Lymph % (Auto) [place] % (Auto) Eos % (Auto) Baso % (Auto) Neut # (Auto) Lymph # (Auto) [place] # (Auto) Eos # (Auto) Baso # (Auto) ESR Sodium 131 L Potassium 4.6 Chloride 94 L Carbon Dioxide 27 Anion Gap 15 BUN 14 Creatinine 0.8 Est GFR ( Amer) > 60 Est GFR (Non-Af Amer) > 60 Random Glucose 153 H Serum Osmolality Calcium 8.6 Total Bilirubin 0.3 AST 32 ALT 32 Alkaline Phosphatase 92 Troponin I Total Protein 7.2 Albumin 3.7 Globulin 3.4 Albumin/Globulin Ratio 1.1 TSH 3rd Generation Cortisol AM Sample 3.2 L Urine Color Urine Clarity Urine pH Ur Specific [place] Urine Protein Urine Glucose (UA) Urine Ketones Urine Blood Urine Nitrate Urine Bilirubin Urine Urobilinogen Ur Leukocyte Esterase Urine RBC (Auto) Urine Microscopic WBC Urine Osmolality Ur Random Sodium Ur Random Potassium Assessment & Plan - Assessment and Plan (Free Text) Assessment: HYPERTENSION HYPONATREMIA ANXIETY AND DEPRESSION FIBROMYALGIA Plan: CONTINUE LOSARTAN, METOPROLOL AND HYDRALAZINE NEEDED
[2018-05-29] MEDS ORDERED: LACTULOSE PO PRN (21:16)
[2018-05-30] MEDS: METOPROLOL TARTRATE 25 MG PO SCH ×2 (03:57→13:17)
[2018-05-30] MEDS: Levothyroxine 125 MCG TAB PO SCH (06:21)
[2018-05-30 06:45] LABS: BLOOD UREA NITROGEN 15 mg/dl (7-17); CALCIUM 8.3 mg/dL (8.4-10.2); GFR NON-AFRICAN AMERICAN > 60
[2018-05-30] MEDS: Fluticasone-Salmeterol 250-50mcg Diskus INH SCH ×2 (08:53→21:25)
[2018-05-30] MEDS: HYDROXYCHLOROQUINE 200 MG PO SCH ×3 (08:56→21:20)
[2018-05-30] MEDS: COZAAR 100 MG PO SCH (08:56)
[2018-05-30] MEDS: OXYCONTIN 10 MG PO SCH ×2 (08:57→21:39)
[2018-05-30] MEDS: TRILEPTAL 300 MG PO SCH ×2 (08:58→21:21)
[2018-05-30] MEDS: PROTONIX 40 MG PO SCH (08:58)
[2018-05-30] MEDS: THIAMINE 100 MG PO SCH (08:58)
--- NOTE | 2018-05-30 09:52 | CP.PCM.PN ---
Subjective - Date & Time of Evaluation Date of Evaluation: 05/30/18 Time of Evaluation: 08:15 - Subjective Subjective: NO CHEST PAIN OR SOB Objective - Vital Signs/Intake and Output Vital Signs (last 24 hours): Temp Pulse Resp BP Pulse Ox 98.3 F 65 20 169/84 H 97 05/30/18 07:57 05/30/18 09:04 05/30/18 07:57 05/30/18 09:04 05/30/18 07:57 - Medications Medications: Current Medications Acetaminophen (Tylenol 325mg Tab) 650 mg PO Q6 PRN PRN Reason: Headache Last Admin: 05/29/18 15:02 Dose: 650 mg Albuterol (Ventolin Hfa 90 Mcg/Actuation (8 G)) 2 puff INH Q6 PRN PRN Reason: Shortness of Breath Clonazepam (Klonopin) 0.25 mg PO BID PRN PRN Reason: Anxiety Home Med (Patient's Own Medication) 1 unit PO SUN [facility] Home Med (Oxycodone [Oxycodone Immediate Release Tab]) 15 mg PO Q6H PRN PRN Reason: Pain, moderate (4-7) Last Admin: 05/29/18 22:21 Dose: 15 mg Home Med (Patient's Own Medication) 1 unit PO Q12 [facility] Stop: 06/01/18 09:01 Last Admin: 05/30/18 08:57 Dose: 1 unit Home Med (Patient's Own Medication) 1 unit PO Q12 [facility]; Protocol Last Admin: 05/30/18 08:56 Dose: 1 unit Home Med (Patient's Own Medication) 1 unit PO DAILY [facility] Last Admin: 05/30/18 08:56 Dose: 1 unit Home Med (Patient's Own Medication) 1 unit PO DAILY [facility] Last Admin: 05/30/18 08:58 Dose: 1 unit Home Med (Patient's Own Medication) 1 unit PO Q12 [facility] Last Admin: 05/30/18 08:58 Dose: 1 unit Home Med (Patient's Own Medication) 1 unit PO DAILY [facility] Last Admin: 05/30/18 08:58 Dose: 1 unit Home Med (Patient's Own Medication) 1 unit PO Q12H [facility] Last Admin: 05/30/18 03:57 Dose: 1 unit Home Med (Zolpidem Tartrate [Ambien Cr]) 12.5 mg PO HS [facility] Last Admin: 05/29/18 23:00 Dose: Not Given Hydralazine HCl (Apresoline) 50 mg PO Q6 PRN PRN Reason: Systolic Blood Pressure Last Admin: 05/30/18 09:02 Dose: 50 mg Lactulose (Enulose) 20 gm PO DAILY [facility] Levothyroxine Sodium (Synthroid) 125 mcg PO DAILY@0630 [facility] Last Admin: 05/30/18 06:21 Dose: 125 mcg Losartan Potassium (Cozaar) 100 mg PO DAILY [facility] Last Admin: 05/30/18 09:02 Dose: 100 mg Meclizine HCl (Antivert) 12.5 mg PO DAILY PRN PRN Reason: Dizziness Last Admin: 05/30/18 09:06 Dose: 12.5 mg Metoprolol Tartrate (Lopressor) 25 mg PO Q12 [facility] Last Admin: 05/30/18 09:04 Dose: 25 mg Fluticasone/Salmeterol (Advair Diskus 250/50) 1 puff INH Q12 [facility] Last Admin: 05/30/18 08:53 Dose: 1 puff - Labs Labs: 05/29/18 06:50 05/30/18 05:50 - Respiratory Exam Respiratory Exam: Clear to Ausculation Bilateral - Cardiovascular Exam Cardiovascular Exam: REGULAR RHYTHM, +S1, +S2 - Extremities Exam Additional comments: NO LE EDEMA Assessment and Plan - Assessment and Plan (Free Text) Assessment: ANXIETY AND DEPRESSION HYPERTENSION CHEST PAIN HISTORY WITH NORMAL NUCLEAR STRESS TESTS Plan: CONTINUE LOSARTAN, METOPROLOL, HYDRALAZINE, AND KLONOPIN
[2018-05-30] MEDS: OXYCODONE PO PRN ×2 (13:13→19:15)
--- NOTE | 2018-05-30 14:34 | CP.PCM.PN ---
Addendum entered by Rhoda Palmer MD 05/31/18 11:55: Pt admitted because she continues to feel dizzy and weak. Poor PO intake due to nausea. PT consulted Endo and Nephro consulted Low Cortisol level Sodium still low Addendum entered by Rhoda Palmer MD 05/30/18 18:42: Full Code Surrogate Decision maker - Kwan Original Note: <Seferino Lemons - Last Filed: 05/30/18 15:07> Subjective - Date & Time of Evaluation Date of Evaluation: 05/30/18 Time of Evaluation: 10:00 - Subjective Subjective: Patient seen and examined this morning at bedside who is admitted here for evaluation and treatment of dizziness, anxiety and hyponatremia. NAD, patient is ambulating, tolerating PO intake, patient reports generalized muscle pain, chronic due to fibromyalgia. Objective - Vital Signs/Intake and Output Vital Signs (last 24 hours): Temp Pulse Resp BP Pulse Ox 98.3 F 60 20 191/89 H 97 05/30/18 07:57 05/30/18 13:20 05/30/18 07:57 05/30/18 13:20 05/30/18 11:06 - Medications Medications: Current Medications Acetaminophen (Tylenol 325mg Tab) 650 mg PO Q6 PRN PRN Reason: Headache Last Admin: 05/29/18 15:02 Dose: 650 mg Albuterol (Ventolin Hfa 90 Mcg/Actuation (8 G)) 2 puff INH Q6 PRN PRN Reason: Shortness of Breath Clonazepam (Klonopin) 0.25 mg PO BID PRN PRN Reason: Anxiety Last Admin: 05/30/18 11:28 Dose: 0.25 mg Home Med (Patient's Own Medication) 1 unit PO SUN [facility] Home Med (Oxycodone [Oxycodone Immediate Release Tab]) 15 mg PO Q6H PRN PRN Reason: Pain, moderate (4-7) Last Admin: 05/30/18 13:13 Dose: 15 mg Home Med (Patient's Own Medication) 1 unit PO Q12 [facility] Stop: 06/01/18 09:01 Last Admin: 05/30/18 08:57 Dose: 1 unit Home Med (Patient's Own Medication) 1 unit PO Q12 [facility]; Protocol Last Admin: 05/30/18 13:14 Dose: 1 unit Home Med (Patient's Own Medication) 1 unit PO DAILY [facility] Last Admin: 05/30/18 08:56 Dose: 1 unit Home Med (Patient's Own Medication) 1 unit PO DAILY [facility] Last Admin: 05/30/18 08:58 Dose: 1 unit Home Med (Patient's Own Medication) 1 unit PO Q12 [facility] Last Admin: 05/30/18 08:58 Dose: 1 unit Home Med (Patient's Own Medication) 1 unit PO Q12H [facility] Last Admin: 05/30/18 13:17 Dose: Not Given Home Med (Zolpidem Tartrate [Ambien Cr]) 12.5 mg PO [facility] Last Admin: 05/29/18 23:00 Dose: Not Given Home Med (Patient's Own Medication) 1 unit PO [facility] Hydralazine HCl (Apresoline) 50 mg PO Q6 PRN PRN Reason: Systolic Blood Pressure Last Admin: 05/30/18 13:20 Dose: 50 mg Lactulose (Enulose) 20 gm PO DAILY [facility] Last Admin: 05/30/18 11:28 Dose: 20 gm Levothyroxine Sodium (Synthroid) 125 mcg PO DAILY@0630 [facility] Last Admin: 05/30/18 06:21 Dose: 125 mcg Meclizine HCl (Antivert) 12.5 mg PO DAILY PRN PRN Reason: Dizziness Last Admin: 05/30/18 09:06 Dose: 12.5 mg Fluticasone/Salmeterol (Advair Diskus 250/50) 1 puff INH Q12 [facility] Last Admin: 05/30/18 08:53 Dose: 1 puff - Labs Labs: 05/29/18 06:50 05/30/18 05:50 - Constitutional Appears: No Acute Distress (but tearful), Other - Head Exam Head Exam: NORMAL INSPECTION - Eye Exam Eye Exam: EOMI, Normal appearance, PERRL - ENT Exam ENT Exam: Mucous Membranes Moist - Neck Exam Neck Exam: Normal Inspection - Respiratory Exam Respiratory Exam: Clear to Ausculation Bilateral, NORMAL BREATHING PATTERN. absent: Accessory Muscle Use, Chest Wall Tenderness, Decreased Breath Sounds, Rales, Rhonchi, Wheezes, Respiratory Distress - Cardiovascular Exam Cardiovascular Exam: REGULAR RHYTHM, +S1, +S2 - GI/Abdominal Exam GI & Abdominal Exam: Soft, Normal Bowel Sounds. absent: Distended, Tenderness, Organomegaly - Extremities Exam Extremities Exam: Normal Capillary Refill, Normal Inspection Additional comments: generalized pain with palpation - Back Exam Back Exam: NORMAL INSPECTION - Neurological Exam Neurological Exam: Alert, Awake, CN II-XII Intact, Oriented x3 Neuro motor strength exam: Left Upper Extremity: 4, Right Upper Extremity: 4, Left Lower Extremity: 4, Right Lower Extremity: 4 - Psychiatric Exam Psychiatric exam: Anxious (tearful ) - Skin Skin Exam: Dry, Intact, Normal Color, Warm Assessment and Plan - Assessment and Plan (Free Text) Assessment: A/P: 67 y/o female with PMH of Lupus, fibromyalgia, Hypothyroidism, Seizure Disorder and anxiety who is admitted here for evaluation and treatment of dizziness, anxiety and hyponatremia. Hyponatremia: - Improved, s/p IVF - Serum Osm 276, Urine Osm 277 with Normal U Na+ and K+ - Consult, Nephrology, will follow up with recommendations - Synthroid increased to 125mcg from 100mcg Low AM Cortisol level - 3.2 - Consult, Dr. Matthews, follow up recommendations Dizziness: possibly due to dehydration vs medications - MRI reviewed: No acute changes noted - Meclizine 12.5mg PO daily - Cardiology recommendations appreciated HTN: - Chronic, uncontrolled - C/w Metoprolol 25 Q12H, Cozzar 100mg daily - Hydralazine 50mg PO Q6H PRN if systolic BP >160 Hypothyroid: - Controlled - Synthroid 100mcg daily, will change that to 125mg Seizure: - Controlled - Trileptal 300mg Q12H Anxiety: - Consult, Psych, recommendations appreciated - Will change Xanax 0.25mg Q12H PRN to Klonopin 0.25 mg PO BID PRN GERD: - Controlled - Protonix 40mg daily Lupus/Fibromyalgia: - C/w home medications: Plaquenil 200mg Q12PO Daily, Oxycontin/Oxycodone DVT PPX: - Lovenox 40mg SC <Rhoda Palmer - Last Filed: 05/30/18 16:40> Objective - Vital Signs/Intake and Output Vital Signs (last 24 hours): Temp Pulse Resp BP Pulse Ox 97.9 F 64 18 126/63 97 05/30/18 15:56 05/30/18 15:56 05/30/18 15:56 05/30/18 15:56 05/30/18 15:56 - Medications Medications: Current Medications Acetaminophen (Tylenol 325mg Tab) 650 mg PO Q6 PRN PRN Reason: Headache Last Admin: 05/29/18 15:02 Dose: 650 mg Albuterol (Ventolin Hfa 90 Mcg/Actuation (8 G)) 2 puff INH Q6 PRN PRN Reason: Shortness of Breath Clonazepam (Klonopin) 0.25 mg PO BID PRN PRN Reason: Anxiety Last Admin: 05/30/18 11:28 Dose: 0.25 mg Home Med (Patient's Own Medication) 1 unit PO [facility] Home [facility] (Oxycodone [Oxycodone Immediate Release Tab]) 15 mg PO Q6H PRN PRN Reason: Pain, moderate (4-7) Last Admin: 05/30/18 13:13 Dose: 15 mg Home Med (Patient's Own Medication) 1 unit PO Q12 [facility] Stop: 06/01/18 09:01 Last Admin: 05/30/18 08:57 Dose: 1 unit Home Med (Patient's Own Medication) 1 unit PO Q12 [facility]; Protocol Last Admin: 05/30/18 13:14 Dose: 1 unit Home Med (Patient's Own Medication) 1 unit PO DAILY [facility] Last Admin: 05/30/18 08:56 Dose: 1 unit Home Med (Patient's Own Medication) 1 unit PO DAILY [facility] Last Admin: 05/30/18 08:58 Dose: 1 unit Home Med (Patient's Own Medication) 1 unit PO Q12 [facility] Last Admin: 05/30/18 08:58 Dose: 1 unit Home Med (Patient's Own Medication) 1 unit PO Q12H [facility] Last Admin: 05/30/18 13:17 Dose: Not Given Home Med (Zolpidem Tartrate [Ambien Cr]) 12.5 mg PO HS [facility] Last Admin: 05/29/18 23:00 Dose: Not Given Home Med (Patient's Own Medication) 1 unit PO [facility] Hydralazine HCl (Apresoline) 50 mg PO Q6 PRN PRN Reason: Systolic Blood Pressure Last Admin: 05/30/18 13:20 Dose: 50 mg Hydralazine HCl (Apresoline) 10 mg PO TID [facility] Lactulose (Enulose) 20 gm PO DAILY [facility] Last Admin: 05/30/18 11:28 Dose: 20 gm Levothyroxine Sodium (Synthroid) 125 mcg PO DAILY@0630 [facility] Last Admin: 05/30/18 06:21 Dose: 125 mcg Meclizine HCl (Antivert) 12.5 mg PO DAILY PRN PRN Reason: Dizziness Last Admin: 05/30/18 09:06 Dose: 12.5 mg Fluticasone/Salmeterol (Advair Diskus 250/50) 1 puff INH Q12 [facility] Last Admin: 05/30/18 08:53 Dose: 1 puff - Labs Labs: 05/29/18 06:50 05/30/18 05:50 Attending/Attestation - Attestation I have personally seen and examined this patient.: Yes I have fully participated in the care of the patient.: Yes I have reviewed all pertinent clinical information, including history, physical exam and plan: Yes Notes (Text): Hyponatremia likely SIADH- multifactorial - pt is on Trileptal (Oxcarbazepine), due to Hypothyroidism, and low Cortisol level - Nephrology and Endocrinology consult - Fluid restriction Dizziness , improving - Physical therapy consult Anxiety - started on Klonopin as per Psych recommendation
--- NOTE | 2018-05-30 19:06 | CP.PCM.CON ---
History of Present Illness - History of Present Illness History of Present Illness: pt was seen and examined by me this afternoon. 67 yo HF with pmh/o multiple medical problems including hypertension for mamny yrs, SLU, seizes, hypothyroidism, sleep anea, oseoporosis, fibromyalgia, Auto immune liver disease, herniation of disc of cervical/lumbar spine was admitted with cc/o generalized weakness renal consult was requested for evaluation of hyponatremia. pt had a complete w/u done today incluing urine lytes, osm, tsh, cortisol pt deines any h/a, dizyness, no cp, palpitation, nausea, vomitings, abd. pain, no urinary sx Review of Systems - Constitutional Constitutional: As Per HPI, Weakness - EENT Eyes: As Per HPI Ears: As Per HPI Nose/Mouth/Throat: As Per HPI - Breasts Breasts: As Per HPI - Cardiovascular Cardiovascular: As Per HPI - Respiratory Respiratory: As Per HPI - Gastrointestinal Gastrointestinal: As Per HPI - Genitourinary Genitourinary: As Per HPI - Musculoskeletal Musculoskeletal: As Per HPI, Arthralgias, Myalgias, Stiffness - Integumentary Integumentary: As Per HPI - Neurological Neurological: As Per HPI - Psychiatric Psychiatric: As Per HPI - Endocrine Endocrine: As Per HPI - Hematologic/Lymphatic Hematologic: As Per HPI Past Patient History - Infectious Disease Hx of Infectious Diseases: None - Past Medical History & Family History Past Medical History?: Yes - Past Social History Smoking Status: Never Smoked - CARDIAC Hx Cardiac Disorders: Yes Hx Hypertension: Yes - PULMONARY Hx Respiratory Disorders: No - NEUROLOGICAL Hx Neurological Disorder: Yes Hx Seizures: Yes Other/Comment: fibromyalgia - HEENT Hx HEENT Problems: No - RENAL Hx Chronic Kidney Disease: Yes Hx Kidney Stones: Yes - ENDOCRINE/METABOLIC Hx Endocrine Disorders: Yes Hx Hypothyroidism: Yes Hx Systemic Lupus Erythematosus: Yes - HEMATOLOGICAL/ONCOLOGICAL Hx Blood Disorders: No - INTEGUMENTARY Hx Dermatological Problems: No - MUSCULOSKELETAL/RHEUMATOLOGICAL Hx Musculoskeletal Disorders: Yes Hx Falls: Yes Hx Herniated Disk: Yes Hx Rheumatoid Arthritis: Yes - GASTROINTESTINAL Hx Gastrointestinal Disorders: Yes Hx Gastroesophageal Reflux: Yes - GENITOURINARY/GYNECOLOGICAL Hx Genitourinary Disorders: No - PSYCHIATRIC Hx Psychophysiologic Disorder: Yes Hx Anxiety: Yes Hx Depression: Yes Hx Substance Use: No - SURGICAL HISTORY Hx Surgeries: Yes Hx Section: Yes Hx Tonsillectomy: Yes Other/Comment: Hx Bunionectomy - ANESTHESIA Hx Anesthesia: Yes Hx Anesthesia Reactions: No Hx Malignant Hyperthermia: No Has any member of the family had a problem w/ anesthesia?: No Meds Allergies/Adverse Reactions: Allergies Allergy/AdvReac Type Severity Reaction Status Date / Time amlodipine [From Norvasc] Allergy RASH Verified 05/28/18 20:39 aspirin Allergy RASH Verified 05/28/18 20:39 bupropion Allergy see below Verified 05/28/18 20:39 [From Wellbutrin SR] ciprofloxacin [From Cipro] Allergy RASH Verified 05/28/18 20:39 clopidogrel [From Plavix] Allergy bruising Verified 05/28/18 20:39 ibuprofen [From Motrin] Allergy RASH Verified 05/28/18 20:39 phenytoin [From Dilantin] Allergy RASH Verified 05/28/18 20:39 quetiapine [From Seroquel] AdvReac see below Verified 05/28/18 20:39 tramadol [From Ultram] AdvReac see below Verified 05/28/18 20:39 - Medications Medications: Current Medications Acetaminophen (Tylenol 325mg Tab) 650 mg PO Q6 PRN PRN Reason: Headache Last Admin: 05/29/18 15:02 Dose: 650 mg Albuterol (Ventolin Hfa 90 Mcg/Actuation (8 G)) 2 puff INH Q6 PRN PRN Reason: Shortness of Breath Clonazepam (Klonopin) 0.25 mg PO BID PRN PRN Reason: Anxiety Last Admin: 05/30/18 11:28 Dose: 0.25 mg Home Med (Patient's Own Medication) 1 unit PO [facility] Home [facility] (Oxycodone [Oxycodone Immediate Release Tab]) 15 mg PO Q6H PRN PRN Reason: Pain, moderate (4-7) Last Admin: 05/30/18 13:13 Dose: 15 mg Home Med (Patient's Own Medication) 1 unit PO Q12 [facility] Stop: 06/01/18 09:01 Last Admin: 05/30/18 08:57 Dose: 1 unit Home Med (Patient's Own Medication) 1 unit PO Q12 [facility]; Protocol Last Admin: 05/30/18 13:14 Dose: 1 unit Home Med (Patient's Own Medication) 1 unit PO DAILY [facility] Last Admin: 05/30/18 08:56 Dose: 1 unit Home Med (Patient's Own Medication) 1 unit PO DAILY [facility] Last Admin: 05/30/18 08:58 Dose: 1 unit Home Med (Patient's Own Medication) 1 unit PO Q12 [facility] Last Admin: 05/30/18 08:58 Dose: 1 unit Home Med (Patient's Own Medication) 1 unit PO Q12H [facility] Last Admin: 05/30/18 13:17 Dose: Not Given Home Med (Zolpidem Tartrate [Ambien Cr]) 12.5 mg PO HS [facility] Last Admin: 05/29/18 23:00 Dose: Not Given Home Med (Patient's Own Medication) 1 unit PO [facility] Hydralazine HCl (Apresoline) 50 mg PO Q6 PRN PRN Reason: Systolic Blood Pressure Last Admin: 05/30/18 13:20 Dose: 50 mg Hydralazine HCl (Apresoline) 10 mg PO TID [facility] Last Admin: 05/30/18 17:47 Dose: 10 mg Lactulose (Enulose) 20 gm PO DAILY [facility] Last Admin: 05/30/18 11:28 Dose: 20 gm Levothyroxine Sodium (Synthroid) 125 mcg PO DAILY@0630 [facility] Last Admin: 05/30/18 06:21 Dose: 125 mcg Meclizine HCl (Antivert) 12.5 mg PO DAILY PRN PRN Reason: Dizziness Last Admin: 05/30/18 09:06 Dose: 12.5 mg Fluticasone/Salmeterol (Advair Diskus 250/50) 1 puff INH Q12 [facility] Last Admin: 05/30/18 08:53 Dose: 1 puff Physical Exam - Constitutional Appears: Well, No Acute Distress - Head Exam Head Exam: ATRAUMATIC, NORMAL INSPECTION, NORMOCEPHALIC - Eye Exam Eye Exam: EOMI, Normal appearance, PERRL Pupil Exam: NORMAL ACCOMODATION - ENT Exam ENT Exam: Mucous Membranes Moist - Neck Exam Neck exam: Positive for: Normal Inspection - Respiratory Exam Respiratory Exam: Clear to Auscultation Bilateral, NORMAL BREATHING PATTERN - Cardiovascular Exam Cardiovascular Exam: REGULAR RHYTHM, +S1, +S2 - GI/Abdominal Exam GI & Abdominal Exam: Normal Bowel Sounds, Soft Additional comments: non tender, no hepato spleenomegaly, no bruit - Neurological Exam Neurological exam: Alert, CN II-XII Intact, Normal Gait, Oriented x3, Reflexes Normal - Psychiatric Exam Psychiatric exam: Normal Affect, Normal Mood - Skin Skin Exam: Dry, Intact, Normal Color Results - Vital Signs Recent Vital Signs: Last Vital Signs Temp 97.9 F 05/30/18 15:56 Pulse 64 05/30/18 17:47 Resp 18 05/30/18 15:56 BP 126/63 05/30/18 17:47 Pulse Ox 97 05/30/18 15:56 - Labs Result Diagrams: 05/29/18 06:50 05/30/18 05:50 Labs: serum na 127, on admission, urine sp. gravity 1.008, u osm 277, U na:35, u K 36.6, THS:1.45 serum cortisol:3.2 05/30/18 05:50 Sodium 130 L Potassium 4.0 Chloride 94 L Carbon Dioxide 29 Anion Gap 11 BUN 15 Creatinine 0.8 Est GFR ( Amer) > 60 Est GFR (Non-Af Amer) > 60 Random Glucose 105 Calcium 8.3 L Assessment & Plan - Assessment and Plan (Free Text) Assessment: 67 yo HF with htn, hypothyroid, seizes, osteoporosis, lupus , auto immune hep atitis, fibromyalgia was admitted with generalized weakness and low serum na 1. Hyponatremia, most likely sec to hypotonic euvolemic, hyponatremia r/o SIADH sec to drugs / Adrenal insufficiency 2. Hypertension 3. seizers repeat serum cortisol level in am high protein diet, liberalize salt for few days in diet check BIJAL, c3,c4,
[2018-05-31] MEDS: PROTONIX 40 MG PO SCH ×2 (00:08→21:22)
[2018-05-31] MEDS: METOPROLOL TARTRATE 25 MG PO SCH ×2 (01:58→13:49)
[2018-05-31 06:34] LABS: BLOOD UREA NITROGEN 14 mg/dl (7-17); CALCIUM 8.3 mg/dL (8.4-10.2); GFR NON-AFRICAN AMERICAN 55
[2018-05-31] MEDS: Levothyroxine 125 MCG TAB PO SCH (06:59)
--- NOTE | 2018-05-31 09:02 | CP.PCM.PN ---
Subjective - Date & Time of Evaluation Date of Evaluation: 05/31/18 Time of Evaluation: 08:20 - Subjective Subjective: PATIENT IS SLEEPING CHART REVIEWED Objective - Vital Signs/Intake and Output Vital Signs (last 24 hours): Temp Pulse Resp BP Pulse Ox 98.4 F 55 L 19 152/85 H 96 05/31/18 08:08 05/31/18 08:08 05/31/18 08:08 05/31/18 08:08 05/31/18 08:08 - Medications Medications: Current Medications Acetaminophen (Tylenol 325mg Tab) 650 mg PO Q6 PRN PRN Reason: Headache Last Admin: 05/29/18 15:02 Dose: 650 mg Albuterol (Ventolin Hfa 90 Mcg/Actuation (8 G)) 2 puff INH Q6 PRN PRN Reason: Shortness of Breath Clonazepam (Klonopin) 0.25 mg PO BID PRN PRN Reason: Anxiety Last Admin: 05/30/18 21:33 Dose: 0.25 mg Home Med (Patient's Own Medication) 1 unit PO SUN [facility] Home Med (Oxycodone [Oxycodone Immediate Release Tab]) 15 mg PO Q6H PRN PRN Reason: Pain, moderate (4-7) Last Admin: 05/30/18 19:15 Dose: 15 mg Home Med (Patient's Own Medication) 1 unit PO Q12 [facility] Stop: 06/01/18 09:01 Last Admin: 05/30/18 21:39 Dose: Not Given Home Med (Patient's Own Medication) 1 unit PO Q12 [facility]; Protocol Last Admin: 05/30/18 21:20 Dose: 1 unit Home Med (Patient's Own Medication) 1 unit PO DAILY [facility] Last Admin: 05/30/18 08:56 Dose: 1 unit Home Med (Patient's Own Medication) 1 unit PO DAILY [facility] Last Admin: 05/30/18 08:58 Dose: 1 unit Home Med (Patient's Own Medication) 1 unit PO Q12 [facility] Last Admin: 05/30/18 21:21 Dose: 1 unit Home Med (Patient's Own Medication) 1 unit PO Q12H [facility] Last Admin: 05/31/18 01:58 Dose: 1 unit Home Med (Zolpidem Tartrate [Ambien Cr]) 12.5 mg PO HS [facility] Last Admin: 05/31/18 01:53 Dose: 12.5 mg Home Med (Patient's Own Medication) 1 unit PO HS [facility] Last Admin: 05/31/18 00:08 Dose: 1 unit Hydralazine HCl (Apresoline) 50 mg PO Q6 PRN PRN Reason: Systolic Blood Pressure Last Admin: 05/30/18 13:20 Dose: 50 mg Hydralazine HCl (Apresoline) 10 mg PO TID [facility] Last Admin: 05/30/18 17:47 Dose: 10 mg Lactulose (Enulose) 20 gm PO DAILY [facility] Last Admin: 05/30/18 11:28 Dose: 20 gm Levothyroxine Sodium (Synthroid) 125 mcg PO DAILY@0630 [facility] Last Admin: 05/31/18 06:59 Dose: 125 mcg Meclizine HCl (Antivert) 12.5 mg PO DAILY PRN PRN Reason: Dizziness Last Admin: 05/30/18 09:06 Dose: 12.5 mg Fluticasone/Salmeterol (Advair Diskus 250/50) 1 puff INH Q12 [facility] Last Admin: 05/30/18 21:25 Dose: 1 puff Sodium Chloride (Sodium Chloride Tab) 1 gm PO DAILY [facility] - Labs Labs: 05/29/18 06:50 05/31/18 05:35 - Respiratory Exam Respiratory Exam: Clear to Ausculation Bilateral - Cardiovascular Exam Cardiovascular Exam: REGULAR RHYTHM, +S1, +S2 - Extremities Exam Additional comments: NO SIGNIFICANT LE EDEMA Assessment and Plan - Assessment and Plan (Free Text) Assessment: HYPERTENSION ANXIETY AND DEPRESSION SLE FIBROMYALGIA Plan: PATIENT IS ON LOSARTAN 100 MGS DAILY AND METOPROLOL SUCCINATE 25 MGS DAILY AND INSISTING ON TAKING HER OWN MEDICATIONS DISPENSED FROM OUR PHARMACY SO ADDITIONAL ORDERS WERE DISCONTINUED SHE IS ALSO ON APRESOLINE AND KLONOPIN
[2018-05-31] MEDS: Fluticasone-Salmeterol 250-50mcg Diskus INH SCH ×2 (09:32→21:23)
[2018-05-31] MEDS: HYDROXYCHLOROQUINE 200 MG PO SCH ×2 (09:34→21:21)
[2018-05-31] MEDS: COZAAR 100 MG PO SCH (09:35)
[2018-05-31] MEDS: THIAMINE 100 MG PO SCH (09:35)
[2018-05-31] MEDS: TRILEPTAL 300 MG PO SCH ×2 (09:36→21:22)
--- NOTE | 2018-05-31 12:24 | CP.PCM.PN ---
<Seferino Lemons - Last Filed: 05/31/18 13:52> Subjective - Date & Time of Evaluation Date of Evaluation: 05/31/18 Time of Evaluation: 10:00 - Subjective Subjective: Patient see and examined this morning, NAD, no acute event overnight. Patient is tolerating PO intake, ambulating in the room, generalized musculoskeletal pain is well controlled on pain meds. Objective - Vital Signs/Intake and Output Vital Signs (last 24 hours): Temp Pulse Resp BP Pulse Ox 98.4 F 55 L 19 152/85 H 96 05/31/18 08:08 05/31/18 09:33 05/31/18 08:08 05/31/18 09:33 05/31/18 08:08 - Medications Medications: Current Medications Acetaminophen (Tylenol 325mg Tab) 650 mg PO Q6 PRN PRN Reason: Headache Last Admin: 05/29/18 15:02 Dose: 650 mg Albuterol (Ventolin Hfa 90 Mcg/Actuation (8 G)) 2 puff INH Q6 PRN PRN Reason: Shortness of Breath Clonazepam (Klonopin) 0.25 mg PO BID PRN PRN Reason: Anxiety Last Admin: 05/30/18 21:33 Dose: 0.25 mg Home Med (Patient's Own Medication) 1 unit PO SUN [facility] Home Med (Oxycodone [Oxycodone Immediate Release Tab]) 15 mg PO Q6H PRN PRN Reason: Pain, moderate (4-7) Last Admin: 05/30/18 19:15 Dose: 15 mg Home Med (Patient's Own Medication) 1 unit PO Q12 [facility] Stop: 06/01/18 09:01 Last Admin: 05/30/18 21:39 Dose: Not Given Home Med (Patient's Own Medication) 1 unit PO Q12 [facility]; Protocol Last Admin: 05/31/18 09:34 Dose: 1 unit Home Med (Patient's Own Medication) 1 unit PO DAILY [facility] Last Admin: 05/31/18 09:35 Dose: 1 unit Home Med (Patient's Own Medication) 1 unit PO DAILY [facility] Last Admin: 05/31/18 09:35 Dose: 1 unit Home Med (Patient's Own Medication) 1 unit PO Q12 [facility] Last Admin: 05/31/18 09:36 Dose: 1 unit Home Med (Patient's Own Medication) 1 unit PO Q12H [facility] Last Admin: 05/31/18 01:58 Dose: 1 unit Home Med (Zolpidem Tartrate [Ambien Cr]) 12.5 mg PO [facility] Last Admin: 05/31/18 01:53 Dose: 12.5 mg Home Med (Patient's Own Medication) 1 unit PO [facility] Last Admin: 05/31/18 00:08 Dose: 1 unit Hydralazine HCl (Apresoline) 50 mg PO Q6 PRN PRN Reason: Systolic Blood Pressure Last Admin: 05/30/18 13:20 Dose: 50 mg Hydralazine HCl (Apresoline) 10 mg PO TID [facility] Last Admin: 05/31/18 09:33 Dose: 10 mg Lactulose (Enulose) 20 gm PO DAILY [facility] Last Admin: 05/31/18 09:34 Dose: 20 gm Levothyroxine Sodium (Synthroid) 125 mcg PO DAILY@0630 [facility] Last Admin: 05/31/18 06:59 Dose: 125 mcg Meclizine HCl (Antivert) 12.5 mg PO DAILY PRN PRN Reason: Dizziness Last Admin: 05/30/18 09:06 Dose: 12.5 mg Fluticasone/Salmeterol (Advair Diskus 250/50) 1 puff INH Q12 [facility] Last Admin: 05/31/18 09:32 Dose: 1 puff Sodium Chloride (Sodium Chloride Tab) 1 gm PO DAILY [facility] Last Admin: 05/31/18 10:54 Dose: 1 gm - Labs Labs: 05/29/18 06:50 05/31/18 05:35 - Constitutional Appears: No Acute Distress - Head Exam Head Exam: NORMAL INSPECTION - Eye Exam Eye Exam: Normal appearance - ENT Exam ENT Exam: Mucous Membranes Moist - Neck Exam Neck Exam: Normal Inspection - Respiratory Exam Respiratory Exam: Clear to Ausculation Bilateral, NORMAL BREATHING PATTERN - Cardiovascular Exam Cardiovascular Exam: REGULAR RHYTHM, +S1, +S2 - GI/Abdominal Exam GI & Abdominal Exam: Soft, Normal Bowel Sounds. absent: Tenderness, Organome alec - Extremities Exam Extremities Exam: Normal Capillary Refill - Back Exam Back Exam: NORMAL INSPECTION - Neurological Exam Neurological Exam: Alert, Awake, Oriented x3 Neuro motor strength exam: Left Upper Extremity: 4, Right Upper Extremity: 4, Left Lower Extremity: 4, Right Lower Extremity: 4 - Psychiatric Exam Psychiatric exam: Normal Affect - Skin Skin Exam: Normal Color Assessment and Plan - Assessment and Plan (Free Text) Assessment: A/P: 67 y/o female with PMH of Lupus, fibromyalgia, Hypothyroidism, Seizure Disorder and anxiety who is admitted here for evaluation and treatment of dizziness, anxiety and hyponatremia. Hyponatremia: possibly multifactorial - Serum Osm 276, Urine Osm 277 with Normal U Na+ and K+ - Consult, Nephrology, recommendations appreciated - Salt tab today - Synthroid increased to 125mcg from 100mcg - FOllow up AM labs Low AM Cortisol level - 3.2 on admission - Consult, Dr. Matthews, recommendations appreciated - Will give Cortrosyn and repeat Cortisol level in 1 hour Dizziness: possibly due to dehydration vs medications - MRI reviewed: No acute changes noted - Meclizine 12.5mg PO daily - Cardiology recommendations appreciated HTN: - Chronic, uncontrolled - C/w Metoprolol 25 Q12H, Cozzar 100mg daily - Hydralazine 50mg PO Q6H PRN if systolic BP >160 Hypothyroid: - Controlled - Synthroid 100mcg daily, will change that to 125mg Seizure: - Controlled - Trileptal 300mg Q12H Anxiety: - Consult, Psych, recommendations appreciated - C/w Klonopin 0.25 mg PO BID PRN GERD: - Controlled - Protonix 40mg daily Lupus/Fibromyalgia: - C/w home medications: Plaquenil 200mg Q12PO Daily, Oxycontin/Oxycodone DVT PPX: - Lovenox 40mg SC <Rhoda Palmer - Last Filed: 05/31/18 15:47> Objective - Vital Signs/Intake and Output Vital Signs (last 24 hours): Temp Pulse Resp BP Pulse Ox 98.4 F 70 19 154/77 H 96 05/31/18 08:08 05/31/18 13:21 05/31/18 08:08 05/31/18 13:21 05/31/18 08:08 - Medications Medications: Current Medications Acetaminophen (Tylenol 325mg Tab) 650 mg PO Q6 PRN PRN Reason: Headache Last Admin: 05/29/18 15:02 Dose: 650 mg Albuterol (Ventolin Hfa 90 Mcg/Actuation (8 G)) 2 puff INH Q6 PRN PRN Reason: Shortness of Breath Clonazepam (Klonopin) 0.25 mg PO BID PRN PRN Reason: Anxiety Last Admin: 05/30/18 21:33 Dose: 0.25 mg Enoxaparin Sodium (Lovenox) 40 mg SC DAILY [facility]; Protocol Home Med (Patient's Own Medication) 1 unit PO SUN [facility] Home Med (Oxycodone [Oxycodone Immediate Release Tab]) 15 mg PO Q6H PRN PRN Reason: Pain, moderate (4-7) Last Admin: 05/31/18 13:45 Dose: 15 mg Home Med (Patient's Own Medication) 1 unit PO Q12 [facility] Stop: 06/01/18 09:01 Last Admin: 05/31/18 13:44 Dose: 1 unit Home Med (Patient's Own Medication) 1 unit PO Q12 [facility]; Protocol Last Admin: 05/31/18 09:34 Dose: 1 unit Home Med (Patient's Own Medication) 1 unit PO DAILY [facility] Last Admin: 05/31/18 09:35 Dose: 1 unit Home Med (Patient's Own Medication) 1 unit PO DAILY [facility] Last Admin: 05/31/18 09:35 Dose: 1 unit Home Med (Patient's Own Medication) 1 unit PO Q12 [facility] Last Admin: 05/31/18 09:36 Dose: 1 unit Home Med (Patient's Own Medication) 1 unit PO Q12H [facility] Last Admin: 05/31/18 13:49 Dose: 1 unit Home Med (Zolpidem Tartrate [Ambien Cr]) 12.5 mg PO [facility] Last Admin: 05/31/18 01:53 Dose: 12.5 mg Home Med (Patient's Own Medication) 1 unit PO [facility] Last Admin: 05/31/18 00:08 Dose: 1 unit Hydralazine HCl (Apresoline) 50 mg PO Q6 PRN PRN Reason: Systolic Blood Pressure Last Admin: 05/30/18 13:20 Dose: 50 mg Hydralazine HCl (Apresoline) 10 mg PO TID [facility] Last Admin: 05/31/18 13:21 Dose: 10 mg Lactulose (Enulose) 20 gm PO DAILY [facility] Last Admin: 05/31/18 09:34 Dose: 20 gm Levothyroxine Sodium (Synthroid) 125 mcg PO DAILY@0630 [facility] Last Admin: 05/31/18 06:59 Dose: 125 mcg Meclizine HCl (Antivert) 12.5 mg PO DAILY PRN PRN Reason: Dizziness Last Admin: 05/30/18 09:06 Dose: 12.5 mg Fluticasone/Salmeterol (Advair Diskus 250/50) 1 puff INH Q12 [facility] Last Admin: 05/31/18 09:32 Dose: 1 puff Sodium Chloride (Sodium Chloride Tab) 1 gm PO DAILY [facility] Last Admin: 05/31/18 10:54 Dose: 1 gm - Labs Labs: 05/29/18 06:50 05/31/18 14:20 Attending/Attestation - Attestation I have personally seen and examined this patient.: Yes I have fully participated in the care of the patient.: Yes I have reviewed all pertinent clinical information, including history, physical exam and plan: Yes Notes (Text): Deconditioning - cont PT/OT - SW consulted for STACIE placement Symptomatic Hyponatremia likely due to SIADH - start Salt tab, Fluid restriction - Nephrology consulted Low Cortisol Level ? Adrenal Insufficiency - Cosyntropin test - discussed case with Dr Matthews
[2018-05-31] MEDS: OXYCONTIN 10 MG PO SCH ×2 (13:44→21:22)
[2018-05-31] MEDS: OXYCODONE PO PRN ×2 (13:45→21:22)
[2018-05-31 14:45] LABS: BLOOD UREA NITROGEN 14 mg/dl (7-17); CALCIUM 8.3 mg/dL (8.4-10.2); GFR NON-AFRICAN AMERICAN > 60
--- NOTE | 2018-05-31 23:30 | CON ---
DATE: 05/31/2018 ENDOCRINOLOGY CONSULTATION LOCATION: Room 656. HISTORY OF PRESENT ILLNESS: This is a 67-year-old female with a known history of multiple autoimmune disorders, presenting here with generalized body weakness and persistent hyponatremia and is now being referred for endocrine evaluation for possible adrenal insufficiency. PAST MEDICAL HISTORY: As mentioned above. History of hypothyroidism, currently controlled on levothyroxine given as 100 mcg daily; history of autoimmune hepatitis; also history of rheumatoid arthritis with systemic lupus and persistent fibromyalgia; history of seizure disorder, controlled on medications; history of obstructive sleep apnea, on a CPAP device at home; history of generalized osteoarthritis and osteoporosis as noted; history of persistent back pain, on narcotic analgesics as given. FAMILY HISTORY: Positive for diabetes and hypertension. SOCIAL HISTORY: The patient has a supportive family. No known substance use. REVIEW OF SYSTEMS: As mentioned above. Admits to generalized body weakness with progressive bouts of dizziness and lightheadedness with easy fatigability and tiredness. Also admits to occasional bifrontal headaches as noted. No chest pains or palpitations. Her oral intake has been variable with occasional nausea, dyspepsia and vague upper abdominal pains. No recent alterations of bowel or urinary patterns. PHYSICAL EXAMINATION: GENERAL: This is an average-built female, in no apparent distress. VITAL SIGNS: With a blood pressure of 130/80, pulse of 70 beats per minute and regular, temperature 98, respirations 20. Height is 5 feet 2 inches. Weight is 164 pounds. HEENT: Head is normocephalic. Eyes are anicteric with pink conjunctivae. Funduscopy not possible at this time. Ears, nose and throat are otherwise normal. NECK: Supple. Thyroid gland is normal in size. No carotid bruits or cervical adenopathy. CARDIOPULMONARY: Some adynamic precordium. S1 and S2 are rapid and regular. Lungs are clear to auscultation. ABDOMEN: Flat and soft with positive sounds. EXTREMITIES: No peripheral edema. Pulses are +2 bilaterally. LABORATORY DATA: Her chemistry showed a BUN of 15, sodium 130, potassium 4, chloride 94, CO2 of 29, glucose 105, and creatinine 0.8. Her albumin level is 3.7. The serum cortisol level is 3.2 mcg/dL. TSH is 1.45. ASSESSMENT: This is a 67-year-old female with possible adrenal insufficiency or hypoadrenalism with a documented low normal serum cortisol level done fasting and is now being referred for endocrine evaluation and management. 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 PLAN OF MANAGEMENT: We will have to confirm and do a precise hormonal testing with Cortrosyn or ACTH stimulation test today as an urgent procedure and discussed the plan of care with the hospitalist today as noted. We will obtain a baseline serum cortisol level followed by administration of Cortrosyn at 250 mcg IM as ordered. Then, we will obtain another serum cortisol level one hour after the administration of the aforementioned to confirm and/or indicate the presence of underlying adrenal insufficiency. We will hold off any steroid replacement as this needs to be confirmed, and if indeed confirmed, she will need lifelong oral steroid therapy accordingly and this should also improve the serum sodium levels accordingly. We will follow. Halley Matthews MD
[2018-06-01] MEDS: METOPROLOL TARTRATE 25 MG PO SCH ×2 (01:34→12:47)
[2018-06-01] MEDS: Levothyroxine 125 MCG TAB PO SCH (06:09)
[2018-06-01 07:04] LABS: ALB/GLOB RATIO 1.1 (1.0-2.1); ALBUMIN 3.7 g/dL (3.5-5.0); ALT/SGPT 35 U/L (9-52); AST/SGOT 33 U/L (14-36); BLOOD UREA NITROGEN 13 mg/dl (7-17); CALCIUM 8.4 mg/dL (8.4-10.2); GFR NON-AFRICAN AMERICAN > 60
[2018-06-01] MEDS: OXYCONTIN 10 MG PO SCH ×2 (09:38→21:27)
[2018-06-01] MEDS: OXYCODONE PO PRN ×2 (09:38→17:46)
[2018-06-01] MEDS: Fluticasone-Salmeterol 250-50mcg Diskus INH SCH ×2 (09:41→21:26)
[2018-06-01] MEDS: TRILEPTAL 300 MG PO SCH ×2 (09:42→21:32)
[2018-06-01] MEDS: THIAMINE 100 MG PO SCH (09:42)
[2018-06-01] MEDS: HYDROXYCHLOROQUINE 200 MG PO SCH ×2 (09:43→21:29)
[2018-06-01] MEDS: COZAAR 100 MG PO SCH (09:44)
[2018-06-01] MEDS: Enoxaparin 40 mg Syringe SC SCH (10:02)
--- NOTE | 2018-06-01 11:29 | CP.PCM.DIS ---
Provider - Provider Date of Admission: 05/30/18 14:53 Attending physician: Jaleel Finley MD Hospital Course - Lab Results Lab Results: Most Recent Lab Values WBC 3.9 K/uL (4.8-10.8) L 05/29/18 06:50 RBC 4.55 Mil/uL (3.80-5.20) 05/29/18 06:50 Hgb 12.6 g/dL (12.0-16.0) 05/29/18 06:50 Hct 38.0 % (34.0-47.0) 05/29/18 06:50 MCV 83.5 fl (81.0-99.0) 05/29/18 06:50 MCH 27.8 pg (27.0-31.0) 05/29/18 06:50 MCHC 33.2 g/dL (33.0-37.0) 05/29/18 06:50 RDW 13.8 % (11.5-14.5) 05/29/18 06:50 Plt Count 163 K/uL (130-400) 05/29/18 06:50 MPV 8.0 fl (7.2-11.7) 05/28/18 21:30 Neut % (Auto) 72.2 % (50.0-75.0) 05/28/18 21:30 Lymph % (Auto) 13.9 % (20.0-40.0) L 05/28/18 21:30 [place] % (Auto) 11.7 % (0.0-10.0) H 05/28/18 21:30 Eos % (Auto) 1.4 % (0.0-4.0) 05/28/18 21:30 Baso % (Auto) 0.8 % (0.0-2.0) 05/28/18 21:30 Neut # (Auto) 3.5 K/uL (1.8-7.0) 05/28/18 21:30 Lymph # (Auto) 0.7 K/uL (1.0-4.3) L 05/28/18 21:30 [place] # (Auto) 0.6 K/uL (0.0-0.8) 05/28/18 21:30 Eos # (Auto) 0.1 K/uL (0.0-0.7) 05/28/18 21:30 Baso # (Auto) 0.0 K/uL (0.0-0.2) 05/28/18 21:30 ESR 10 mm/hr (0-30) 05/28/18 21:30 Sodium 130 mmol/l (132-148) L 06/01/18 05:30 Potassium 3.6 MMOL/L (3.6-5.0) 06/01/18 05:30 Chloride 93 mmol/L (98-107) L 06/01/18 05:30 Carbon Dioxide 28 mmol/L (22-30) 06/01/18 05:30 Anion Gap 13 (10-20) 06/01/18 05:30 BUN 13 mg/dl (7-17) 06/01/18 05:30 Creatinine 0.7 mg/dl (0.7-1.2) 06/01/18 05:30 Est GFR ( Amer) > 60 06/01/18 05:30 Est GFR (Non-Af Amer) > 60 06/01/18 05:30 Random Glucose 94 mg/dL (65-105) 06/01/18 05:30 Serum Osmolality 276 mosm/kg (272-300) 05/29/18 04:55 Calcium 8.4 mg/dL (8.4-10.2) 06/01/18 05:30 Total Bilirubin 0.4 mg/dl (0.2-1.3) 06/01/18 05:30 AST 33 U/L (14-36) 06/01/18 05:30 ALT 35 U/L (9-52) 06/01/18 05:30 Alkaline Phosphatase 91 U/L (38-126) 06/01/18 05:30 Troponin I < 0.0120 ng/mL (0.00-0.120) 05/28/18 21:30 Total Protein 7.2 G/DL (6.3-8.2) 06/01/18 05:30 Albumin 3.7 g/dL (3.5-5.0) 06/01/18 05:30 Globulin 3.5 gm/dL (2.2-3.9) 06/01/18 05:30 Albumin/Globulin Ratio 1.1 (1.0-2.1) 06/01/18 05:30 TSH 3rd Generation 1.45 mIU/ML (0.46-4.68) 05/29/18 04:55 Cortisol AM Sample 1.9 ug/dL (4.46-22.7) L 05/31/18 05:35 Plasma Cortisol PM 22.3 ug/dL (1.7-14.1) H 05/31/18 14:20 Urine Color Straw (YELLOW) 05/28/18 21:42 Urine Clarity Clear (Clear) 05/28/18 21:42 Urine pH 7.0 (5.0-8.0) 05/28/18 21:42 Ur Specific [place] 1.008 (1.003-1.030) 05/28/18 21:42 Urine Protein Negative mg/dL (NEGATIVE) 05/28/18 21:42 Urine Glucose (UA) Neg mg/dL (Normal) 05/28/18 21:42 Urine Ketones Negative mg/dL (NEGATIVE) 05/28/18 21:42 Urine Blood Negative (NEGATIVE) 05/28/18 21:42 Urine Nitrate Negative (NEGATIVE) 05/28/18 21:42 Urine Bilirubin Negative (NEGATIVE) 05/28/18 21:42 Urine Urobilinogen 0.2-1.0 mg/dL (0.2-1.0) 05/28/18 21:42 Ur Leukocyte Esterase Neg [place]/uL (Negative) 05/28/18 21:42 Urine RBC (Auto) 1 /hpf (0-3) 05/28/18 21:42 Urine Microscopic WBC < 1 /hpf (0-5) 05/28/18 21:42 Urine Osmolality 277 mosm/kg (300-1000) L 05/29/18 04:55 Ur Random Sodium 35 meq/L 05/29/18 04:55 Ur Random Potassium 36.6 mmol/L 05/29/18 04:55 Discharge Exam - Head Exam Head Exam: NORMAL INSPECTION Discharge Plan - Discharge Medications Prescriptions: clonazePAM [Klonopin] 0.25 mg PO BID PRN #30 tab PRN Reason: Anxiety cloNIDine [Catapres] 0.1 mg PO BID #60 tab Demeclocycline [Declomycin] 150 mg PO QID #120 tab hydrALAZINE [Apresoline] 20 mg PO TID #90 tab Levothyroxine [Synthroid] 125 mcg PO DAILY@0630 #30 tab - Follow Up Plan Condition: FAIR Disposition: HOME/ ROUTINE Referrals: Kelsey Martinez MD [Medical Doctor] - Shorty Gallo MD [Staff Provider] -
--- NOTE | 2018-06-01 12:33 | CP.PCM.PN ---
Subjective - Date & Time of Evaluation Date of Evaluation: 06/01/18 Time of Evaluation: 11:00 - Subjective Subjective: NO CHEST PAIN OR SOB Objective - Vital Signs/Intake and Output Vital Signs (last 24 hours): Temp Pulse Resp BP Pulse Ox 98.4 F 64 19 155/85 H 98 06/01/18 07:47 06/01/18 12:00 06/01/18 07:47 06/01/18 12:00 06/01/18 07:47 - Medications Medications: Current Medications Acetaminophen (Tylenol 325mg Tab) 650 mg PO Q6 PRN PRN Reason: Headache Last Admin: 05/29/18 15:02 Dose: 650 mg Albuterol (Ventolin Hfa 90 Mcg/Actuation (8 G)) 2 puff INH Q6 PRN PRN Reason: Shortness of Breath Clonazepam (Klonopin) 0.25 mg PO BID PRN PRN Reason: Anxiety Last Admin: 06/01/18 02:04 Dose: 0.25 mg Clonidine HCl (Catapres) 0.1 mg PO BID [facility] Demeclocycline HCl (Declomycin) 150 mg PO QID [facility]; Protocol Last Admin: 06/01/18 09:41 Dose: 150 mg Enoxaparin Sodium (Lovenox) 40 mg SC DAILY [facility]; Protocol Last Admin: 06/01/18 10:02 Dose: 40 mg Home Med (Patient's Own Medication) 1 unit PO SUN [facility] Home Med (Oxycodone [Oxycodone Immediate Release Tab]) 15 mg PO Q6H PRN PRN Reason: Pain, moderate (4-7) Last Admin: 06/01/18 09:38 Dose: 15 mg Home Med (Patient's Own Medication) 1 unit PO Q12 [facility]; Protocol Last Admin: 06/01/18 09:43 Dose: 1 unit Home Med (Patient's Own Medication) 1 unit PO DAILY [facility] Last Admin: 06/01/18 09:44 Dose: 1 unit Home Med (Patient's Own Medication) 1 unit PO DAILY [facility] Last Admin: 06/01/18 09:42 Dose: 1 unit Home Med (Patient's Own Medication) 1 unit PO Q12 [facility] Last Admin: 06/01/18 09:42 Dose: 1 unit Home Med (Patient's Own Medication) 1 unit PO Q12H [facility] Last Admin: 06/01/18 01:34 Dose: 1 unit Home Med (Zolpidem Tartrate [Ambien Cr]) 12.5 mg PO HS [facility] Last Admin: 05/31/18 22:15 Dose: Not Given Home Med (Patient's Own Medication) 1 unit PO HS [facility] Last Admin: 05/31/18 21:22 Dose: 1 unit Home Med (Patient's Own Medication) 1 unit PO Q12 [facility] Hydralazine HCl (Apresoline) 50 mg PO Q6 PRN PRN Reason: Systolic Blood Pressure Last Admin: 05/31/18 23:35 Dose: 50 mg Hydralazine HCl (Apresoline) 20 mg PO TID [facility] Last Admin: 06/01/18 09:40 Dose: 20 mg Lactulose (Enulose) 20 gm PO DAILY [facility] Last Admin: 06/01/18 09:41 Dose: 20 gm Levothyroxine Sodium (Synthroid) 125 mcg PO DAILY@0630 [facility] Last Admin: 06/01/18 06:09 Dose: 125 mcg Meclizine HCl (Antivert) 12.5 mg PO DAILY PRN PRN Reason: Dizziness Last Admin: 05/30/18 09:06 Dose: 12.5 mg Fluticasone/Salmeterol (Advair Diskus 250/50) 1 puff INH Q12 [facility] Last Admin: 06/01/18 09:41 Dose: 1 puff - Labs Labs: 05/29/18 06:50 06/01/18 05:30 - Respiratory Exam Respiratory Exam: Clear to Ausculation Bilateral - Cardiovascular Exam Cardiovascular Exam: REGULAR RHYTHM, +S1, +S2 - Extremities Exam Additional comments: NO SIGNIFICANT LE EDEMA Assessment and Plan - Assessment and Plan (Free Text) Assessment: HYPERTENSION DEPRESSION AND ANXIETY FIBROMYALGIA Plan: CONTINUE LOSARTAN, METOPROLOL AND HYDRALAZINE
--- NOTE | 2018-06-01 14:06 | CP.PCM.PN ---
Subjective - Date & Time of Evaluation Date of Evaluation: 06/01/18 Time of Evaluation: 14:06 - Subjective Subjective: 67 yo HF with pmh/o multiple medical problems including hypertension for mamny yrs, SLU, seizes, hypothyroidism, sleep anea, oseoporosis, fibromyalgia, Auto immune liver disease, herniation of disc of cervical/lumbar spine was admitted with cc/o generalized weakness renal consult was requested for evaluation of hyponatremia pt is very anxious, nervous, abbott not want to go home, serum na is 130 wants to go to inpatient rehab Objective - Vital Signs/Intake and Output Vital Signs (last 24 hours): Temp Pulse Resp BP Pulse Ox 98.4 F 64 19 155/85 H 98 06/01/18 07:47 06/01/18 12:00 06/01/18 07:47 06/01/18 12:00 06/01/18 07:47 - Medications Medications: Current Medications Acetaminophen (Tylenol 325mg Tab) 650 mg PO Q6 PRN PRN Reason: Headache Last Admin: 05/29/18 15:02 Dose: 650 mg Albuterol (Ventolin Hfa 90 Mcg/Actuation (8 G)) 2 puff INH Q6 PRN PRN Reason: Shortness of Breath Clonazepam (Klonopin) 0.25 mg PO BID PRN PRN Reason: Anxiety Last Admin: 06/01/18 02:04 Dose: 0.25 mg Clonidine HCl (Catapres) 0.1 mg PO BID [facility] Demeclocycline HCl (Declomycin) 150 mg PO QID [facility]; Protocol Last Admin: 06/01/18 12:45 Dose: 150 mg Enoxaparin Sodium (Lovenox) 40 mg SC DAILY [facility]; Protocol Last Admin: 06/01/18 10:02 Dose: 40 mg Home Med (Patient's Own Medication) 1 unit PO SUN [facility] Home Med (Oxycodone [Oxycodone Immediate Release Tab]) 15 mg PO Q6H PRN PRN Reason: Pain, moderate (4-7) Last Admin: 06/01/18 09:38 Dose: 15 mg Home Med (Patient's Own Medication) 1 unit PO Q12 [facility]; Protocol Last Admin: 06/01/18 09:43 Dose: 1 unit Home Med (Patient's Own Medication) 1 unit PO DAILY [facility] Last Admin: 06/01/18 09:44 Dose: 1 unit Home Med (Patient's Own Medication) 1 unit PO DAILY [facility] Last Admin: 06/01/18 09:42 Dose: 1 unit Home Med (Patient's Own Medication) 1 unit PO Q12 [facility] Last Admin: 06/01/18 09:42 Dose: 1 unit Home Med (Patient's Own Medication) 1 unit PO Q12H [facility] Last Admin: 06/01/18 12:47 Dose: 1 unit Home Med (Zolpidem Tartrate [Ambien Cr]) 12.5 mg PO [facility] Last Admin: 05/31/18 22:15 Dose: Not Given Home Med (Patient's Own Medication) 1 unit PO [facility] Last Admin: 05/31/18 21:22 Dose: 1 unit Home Med (Patient's Own Medication) 1 unit PO Q12 [facility] Hydralazine HCl (Apresoline) 50 mg PO Q6 PRN PRN Reason: Systolic Blood Pressure Last Admin: 05/31/18 23:35 Dose: 50 mg Hydralazine HCl (Apresoline) 20 mg PO TID [facility] Last Admin: 06/01/18 12:44 Dose: 20 mg Lactulose (Enulose) 20 gm PO DAILY [facility] Last Admin: 06/01/18 09:41 Dose: 20 gm Levothyroxine Sodium (Synthroid) 125 mcg PO DAILY@0630 [facility] Last Admin: 06/01/18 06:09 Dose: 125 mcg Meclizine HCl (Antivert) 12.5 mg PO DAILY PRN PRN Reason: Dizziness Last Admin: 05/30/18 09:06 Dose: 12.5 mg Fluticasone/Salmeterol (Advair Diskus 250/50) 1 puff INH Q12 [facility] Last Admin: 06/01/18 09:41 Dose: 1 puff - Labs Labs: 05/29/18 06:50 06/01/18 05:30 - Constitutional Appears: Well, Non-toxic, No Acute Distress - Head Exam Head Exam: ATRAUMATIC, NORMAL INSPECTION, NORMOCEPHALIC - Eye Exam Eye Exam: EOMI, Normal appearance, PERRL Pupil Exam: NORMAL ACCOMODATION - ENT Exam ENT Exam: Mucous Membranes Moist - Neck Exam Neck Exam: Full ROM, Normal Inspection - Respiratory Exam Respiratory Exam: Clear to Ausculation Bilateral, NORMAL BREATHING PATTERN - Cardiovascular Exam Cardiovascular Exam: REGULAR RHYTHM, +S1, +S2 - GI/Abdominal Exam GI & Abdominal Exam: Soft, Normal Bowel Sounds - Rectal Exam Rectal Exam: Deferred - Extremities Exam Extremities Exam: Full ROM, Normal Inspection - Neurological Exam Neurological Exam: Alert, Awake, CN II-XII Intact, Normal Gait, Oriented x3 - Psychiatric Exam Psychiatric exam: Normal Affect, Normal Mood - Skin Skin Exam: Normal Color Assessment and Plan - Assessment and Plan (Free Text) Assessment: 67 yo HF with htn, hypothyroid, seizes, osteoporosis, lupus , auto immune hepatitis, fibromyalgia was admitted with generalized weakness and low serum na 1. Hyponatremia, most likely sec to hypotonic euvolemic, hyponatremia r/o SIADH sec to drugs / Adrenal insufficiency 2. Hypertension 3. seizers c/w anti htn meds, titrate hydralazine as needed started on demeclocycline f/u na will sign off the case
--- NOTE | 2018-06-01 14:39 | CP.PCM.PN ---
Addendum entered and electronically signed by Miriam Owusu MD 06/01/18 18:46: Patient was seen bedside . All chart and clinical data reviewed . Case discussed with resident .Agree with assessment and plan Patient with high levels of anxiety, does not feel ready to go home , worried since her BP overnight was elevated to 200 systolic . 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 Tolerating PO diet, denies any diarrhea, fever, constipation, abdominal pain, chest pain, SOB or urinary symptoms. - Patient was seen by me second time in room this morning to inform about the discharge plan, patient is ambulating in room with out any difficulty. - Patient refused/declined to go home, she wants to go to [facility] for further management and treatment Objective - Vital Signs/Intake and Output Vital Signs (last 24 hours): Temp Pulse Resp BP Pulse Ox 98.4 F 64 19 155/85 H 98 06/01/18 07:47 06/01/18 12:00 06/01/18 07:47 06/01/18 12:00 06/01/18 07:47 - Medications Medications: Current Medications Acetaminophen (Tylenol 325mg Tab) 650 mg PO Q6 PRN PRN Reason: Headache Last Admin: 05/29/18 15:02 Dose: 650 mg Albuterol (Ventolin Hfa 90 Mcg/Actuation (8 G)) 2 puff INH Q6 PRN PRN Reason: Shortness of Breath Clonazepam (Klonopin) 0.25 mg PO BID PRN PRN Reason: Anxiety Last Admin: 06/01/18 02:04 Dose: 0.25 mg Clonidine HCl (Catapres) 0.1 mg PO BID [facility] Demeclocycline HCl (Declomycin) 150 mg PO QID [facility]; Protocol Last Admin: 06/01/18 12:45 Dose: 150 mg Enoxaparin Sodium (Lovenox) 40 mg SC DAILY [facility]; Protocol Last Admin: 06/01/18 10:02 Dose: 40 mg Home Med (Patient's Own Medication) 1 unit PO SUN [facility] Home Med (Oxycodone [Oxycodone Immediate Release Tab]) 15 mg PO Q6H PRN PRN Reason: Pain, moderate (4-7) Last Admin: 06/01/18 09:38 Dose: 15 mg Home Med (Patient's Own Medication) 1 unit PO Q12 [facility]; Protocol Last Admin: 06/01/18 09:43 Dose: 1 unit Home Med (Patient's Own Medication) 1 unit PO DAILY [facility] Last Admin: 06/01/18 09:44 Dose: 1 unit Home Med (Patient's Own Medication) 1 unit PO DAILY [facility] Last Admin: 06/01/18 09:42 Dose: 1 unit Home Med (Patient's Own Medication) 1 unit PO Q12 [facility] Last Admin: 06/01/18 09:42 Dose: 1 unit Home Med (Patient's Own Medication) 1 unit PO Q12H [facility] Last Admin: 06/01/18 12:47 Dose: 1 unit Home Med (Zolpidem Tartrate [Ambien Cr]) 12.5 mg PO [facility] Last Admin: 05/31/18 22:15 Dose: Not Given Home Med (Patient's Own Medication) 1 unit PO [facility] Last Admin: 05/31/18 21:22 Dose: 1 unit Home Med (Patient's Own Medication) 1 unit PO Q12 [facility] Hydralazine HCl (Apresoline) 50 mg PO Q6 PRN PRN Reason: Systolic Blood Pressure Last Admin: 05/31/18 23:35 Dose: 50 mg Hydralazine HCl (Apresoline) 20 mg PO TID [facility] Last Admin: 06/01/18 12:44 Dose: 20 mg Lactulose (Enulose) 20 gm PO DAILY [facility] Last Admin: 06/01/18 09:41 Dose: 20 gm Levothyroxine Sodium (Synthroid) 125 mcg PO DAILY@0630 [facility] Last Admin: 06/01/18 06:09 Dose: 125 mcg Meclizine HCl (Antivert) 12.5 mg PO DAILY PRN PRN Reason: Dizziness Last Admin: 05/30/18 09:06 Dose: 12.5 mg Fluticasone/Salmeterol (Advair Diskus 250/50) 1 puff INH Q12 [facility] Last Admin: 06/01/18 09:41 Dose: 1 puff - Labs Labs: 05/29/18 06:50 06/01/18 05:30 - Constitutional Appears: No Acute Distress - Head Exam Head Exam: NORMAL INSPECTION - Eye Exam Eye Exam: Normal appearance - ENT Exam ENT Exam: Mucous Membranes Moist - Neck Exam Neck Exam: Normal Inspection - Respiratory Exam Respiratory Exam: Clear to Ausculation Bilateral - Cardiovascular Exam Cardiovascular Exam: REGULAR RHYTHM, +S1, +S2 - GI/Abdominal Exam GI & Abdominal Exam: Soft, Normal Bowel Sounds. absent: Tenderness - Extremities Exam Extremities Exam: Normal Capillary Refill, Normal Inspection Additional comments: Reports pain on palpation, everywhere - Back Exam Back Exam: absent: CVA tenderness (L), CVA tenderness (R) - Neurological Exam Neurological Exam: Alert, Awake, CN II-XII Intact, Normal Gait, Oriented x3 Neuro motor strength exam: Left Upper Extremity: 4, Right Upper Extremity: 4, Left Lower Extremity: 4, Right Lower Extremity: 4 - Psychiatric Exam Psychiatric exam: Anxious, Normal Affect - Skin Skin Exam: Dry, Intact, Normal Color, Warm Assessment and Plan - Assessment and Plan (Free Text) Assessment: A/P: 67 y/o female with PMH of Lupus, fibromyalgia, Hypothyroidism, Seizure Disorder and anxiety who is admitted here for evaluation and treatment of dizziness, anxiety and hyponatremia. Hyponatremia: possibly multifactorial - Serum Osm 276, Urine Osm 277 with Normal U Na+ and K+ - Consult, Nephrology, recommendations appreciated - high protein diet, liberalize salt for few days in diet, check BIJAL, c3,c4, - C/w Salt tab - Synthroid increased to 125mcg from 100mcg Low AM Cortisol level - 3.2 on admission - Consult, Dr. Matthews, recommendations appreciated - High Cortisol, s/p Cortrosyn Dizziness: possibly due to dehydration vs medications - MRI reviewed: No acute changes noted - Meclizine 12.5mg PO daily - Cardiology recommendations appreciated HTN: - Chronic, uncontrolled - C/w Metoprolol 25 Q12H, Cozzar 100mg daily, Hydralazine 20mg PO TID and Clonid ine 0.1mg PO BID - Hydralazine 50mg PO Q6H PRN if systolic BP >160 Hypothyroid: - Controlled - Synthroid 125mg Seizure: - Controlled - Trileptal 300mg Q12H Anxiety: - Consult, Psych, recommendations appreciated - C/w Klonopin 0.25 mg PO BID PRN GERD: - Controlled - Protonix 40mg daily Lupus/Fibromyalgia: - C/w home medications: Plaquenil 200mg Q12PO Daily, Oxycontin/Oxycodone DVT PPX: - Lovenox 40mg SC
--- NOTE | 2018-06-01 18:00 | PN ---
DATE: 06/01/2018 ENDO FOLLOWUP NOTE LOCATION: Room 656. SUBJECTIVE: This is a 67-year-old female presenting here with progressive dizziness, lightheadedness, generalized body weakness and associated euvolemic hyponatremia, is now being followed closely for metabolic management. She also has significant history of hypothyroidism and other collagen vascular disorders as noted thereof. She has remained clinically and biochemically euthyroid at this time. The possibility of hypoadrenalism was brought into consideration and so she underwent a Cortrosyn or ACTH stimulation test yesterday as noted and given. The results showed a baseline cortisol of 1.9 with a 1 hour stimulation result of 22.3, which is actually normal and indicative of a normal response of cortisol to ACTH stimulation and thus excluding the possibility of underlying adrenal insufficiency. ASSESSMENT: Euvolemic hyponatremia related to possible syndrome of inappropriate antidiuretic hormone, the etiology of which has to be ascertained at this time. PLAN OF MANAGEMENT: Because of the persistent constitutional symptoms and progressive dizziness and lightheadedness of the patient, we will start her on therapeutic replacement for hyponatremia and detailed orders have been given. We will start her with demeclocycline given as 150 mg q.i.d. as ordered to start today. We will obtain serial chemistries and supplement accordingly as needed. We will follow and advise accordingly. Halley Matthews MD
--- NOTE | 2018-06-01 19:26 | PCM.RRT ---
<Seferino Lemons - Last Filed: 06/01/18 20:21> DIPPER OPERATOR Nurse Assessment - Situation Location: 6th floor DIPPER OPERATOR Reason for Call: Chest Pain DIPPER OPERATOR Called By: RN - IV IV Inserted during DIPPER OPERATOR?: No I.Reason for DIPPER OPERATOR - A) Acute Change in Patient: (Select all that apply): Chest Pain Subjective: This is 67 y/o female who was admitted to [facility] for evaluation and treatment of Hyponatremia, severe anxiety and dizziness. DIPPER OPERATOR was called by RN for chest pain. Upon arrival, patient is alert, awake and oriented but seems very agitated/anx ious and crying. Initial VS: 173/85, HR 85, 100% Spo2 RA Patient reports sharp chest pain, comes and goes, didnt relieved by walking and associated with blurred vision. Denies any n/v/d, abdominal pain or numbness/weakness. STAT EKG and Troponin Ordered. Last BP 139/80, DIPPER OPERATOR was ended and patient was transferred to the telemetry for further monitoring. Case discussed with Dr. Chance - Constitutional Appears: Other (Crying/Agitated ) - Head Head Exam: NORMAL INSPECTION - Eyes Eye Exam: EOMI, Normal appearance, PERRL - Respiratory Exam Respiratory Exam: Clear to Ausculation Bilateral, NORMAL BREATHING PATTERN - Cardiovascular Exam Cardiovascular Exam: REGULAR RHYTHM, +S1, +S2 - GI/Abdominal Exam GI & Abdominal Exam: Soft, Normal Bowel Sounds - Neurological Exam Neurological Exam: Alert, Awake, Oriented x3 Plan - Assessment of Findings&Treatment Plan This is 67 y/o female who was admitted to [facility] for evaluation and treatment of Hyponatremia, severe anxiety and dizziness, DIPPER OPERATOR was called for chest pain Chest pain/Panic attack, r/o ACS - STAT EKG reviewed - STAT Troponin negative - Follow up serial Trops - Follow up AM EKG - Transfer to the Telemetry <Jonathon Chance - Last Filed: 06/02/18 11:20> DIPPER OPERATOR Nurse Assessment - Vital Signs Vital Signs: Rapid Response Vital Sign Blood Pressure 184/97 Pulse Rate 79 Respiratory Rate 20 Oxygen Saturation 99 - Vital Signs at end of DIPPER OPERATOR Vital Signs at end of DIPPER OPERATOR: Rapid Response End Vital Sign Blood Pressure 166/79 Pulse Rate 20 Respiratory Rate 72 O2 Sat by Pulse Oximetry 98 Attending/Attestation - Attestation I have personally seen and examined this patient.: Yes I have fully participated in the care of the patient.: Yes I have reviewed all pertinent clinical information, including history, physical exam and plan: Yes Notes (Text): 06/02/18 11:19 DIPPER OPERATOR was called and attended by me and resident. Case was discussed and agreed with assessment and management.
[2018-06-01] MEDS ORDERED: oxyCODONE 10 mg ER Tab (oxyCONTIN) PO SCH (21:00)
[2018-06-01] MEDS: PROTONIX 40 MG PO SCH (21:36)
[2018-06-02] MEDS: METOPROLOL TARTRATE 25 MG PO SCH ×2 (01:39→13:00)
[2018-06-02] MEDS: Levothyroxine 125 MCG TAB PO SCH (06:12)
[2018-06-02 07:31] LABS: B-TYPE NATRIURETIC PEPTIDE 334 pg/ml (0-900)
[2018-06-02] MEDS ORDERED: VITAMIN D2 50000 UNIT PO SCH (09:00)
[2018-06-02] MEDS: Fluticasone-Salmeterol 250-50mcg Diskus INH SCH ×2 (09:38→21:57)
[2018-06-02 09:40] VITALS: RESP 18
[2018-06-02] MEDS: COZAAR 100 MG PO SCH (09:40)
[2018-06-02] MEDS: Enoxaparin 40 mg Syringe SC SCH (09:40)
[2018-06-02] MEDS: THIAMINE 100 MG PO SCH (09:41)
[2018-06-02] MEDS: HYDROXYCHLOROQUINE 200 MG PO SCH ×2 (09:41→21:57)
[2018-06-02] MEDS: TRILEPTAL 300 MG PO SCH ×2 (09:41→21:57)
[2018-06-02] MEDS: OXYCONTIN 10 MG PO SCH ×2 (10:08→22:58)
[2018-06-02] MEDS: OXYCODONE PO PRN (10:55)
--- NOTE | 2018-06-02 13:46 | CP.PCM.PN ---
Subjective - Date & Time of Evaluation Date of Evaluation: 06/02/18 Time of Evaluation: 12:00 - Subjective Subjective: THE PATIENT GOT VERY NERVOUS ABOUT GOING HOME YESTERDAY AND COMPLAINED OF CHEST PAIN, AN [employer] VAT WORKER WAS CALLED AND SHE WAS KEPT IN THE HOSPITAL AND TRANSFERRED TO [facility] NO CHEST PAIN NOW Objective - Vital Signs/Intake and Output Vital Signs (last 24 hours): Temp Pulse Resp BP Pulse Ox 98.0 F 66 18 99/66 L 100 06/02/18 09:39 06/02/18 12:39 06/02/18 09:39 06/02/18 12:39 06/02/18 09:39 - Medications Medications: Current Medications Acetaminophen (Tylenol 325mg Tab) 650 mg PO Q6 PRN PRN Reason: Headache Last Admin: 05/29/18 15:02 Dose: 650 mg Albuterol (Ventolin Hfa 90 Mcg/Actuation (8 G)) 2 puff INH Q6 PRN PRN Reason: Shortness of Breath Clonazepam (Klonopin) 0.25 mg PO BID PRN PRN Reason: Anxiety Last Admin: 06/01/18 02:04 Dose: 0.25 mg Clonidine HCl (Catapres) 0.1 mg PO BID [facility] Last Admin: 06/02/18 09:44 Dose: 0.1 mg Demeclocycline HCl (Declomycin) 150 mg PO QID [facility]; Protocol Last Admin: 06/02/18 12:36 Dose: Not Given Enoxaparin Sodium (Lovenox) 40 mg SC DAILY [facility]; Protocol Last Admin: 06/02/18 09:40 Dose: 40 mg Home Med (Patient's Own Medication) 1 unit PO SUN [facility] Last Admin: 06/02/18 09:40 Dose: 1 unit Home Med (Oxycodone [Oxycodone Immediate Release Tab]) 15 mg PO Q6H PRN PRN Reason: Pain, moderate (4-7) Last Admin: 06/02/18 10:55 Dose: 15 mg Home Med (Patient's Own Medication) 1 unit PO Q12 [facility]; Protocol Last Admin: 06/02/18 09:41 Dose: 1 unit Home Med (Patient's Own Medication) 1 unit PO DAILY [facility] Last Admin: 06/02/18 09:40 Dose: 1 unit Home Med (Patient's Own Medication) 1 unit PO DAILY [facility] Last Admin: 06/02/18 09:41 Dose: 1 unit Home Med (Patient's Own Medication) 1 unit PO Q12 [facility] Last Admin: 06/02/18 09:41 Dose: 1 unit Home Med (Patient's Own Medication) 1 unit PO Q12H [facility] Last Admin: 06/02/18 01:39 Dose: 1 unit Home Med (Zolpidem Tartrate [Ambien Cr]) 12.5 mg PO [facility] Last Admin: 06/02/18 01:26 Dose: 12.5 mg Home Med (Patient's Own Medication) 1 unit PO [facility] Last Admin: 06/01/18 21:36 Dose: 1 unit Home Med (Patient's Own Medication) 1 unit PO Q12 [facility] Last Admin: 06/02/18 10:08 Dose: 1 unit Hydralazine HCl (Apresoline) 50 mg PO Q6 PRN PRN Reason: Systolic Blood Pressure Last Admin: 06/01/18 15:54 Dose: 50 mg Hydralazine HCl (Apresoline) 20 mg PO TID [facility] Last Admin: 06/02/18 12:39 Dose: Not Given Lactulose (Enulose) 20 gm PO DAILY [facility] Last Admin: 06/02/18 09:45 Dose: 20 gm Levothyroxine Sodium (Synthroid) 125 mcg PO DAILY@0630 [facility] Last Admin: 06/02/18 06:12 Dose: 125 mcg Meclizine HCl (Antivert) 12.5 mg PO DAILY PRN PRN Reason: Dizziness Last Admin: 05/30/18 09:06 Dose: 12.5 mg Fluticasone/Salmeterol (Advair Diskus 250/50) 1 puff INH Q12 [facility] Last Admin: 06/02/18 09:38 Dose: 1 puff - Labs Labs: 05/29/18 06:50 06/01/18 05:30 - Respiratory Exam Respiratory Exam: Clear to Ausculation Bilateral - Cardiovascular Exam Cardiovascular Exam: REGULAR RHYTHM, +S1, +S2 - Extremities Exam Additional comments: NO LE EDEMA - Additional Findings Additional findings: TROPONIN NORMAL X 3 MANAGER OF SECURITY NSR BP 184/97 LAST NIGHT BP NORMAL TODAY Assessment and Plan - Assessment and Plan (Free Text) Assessment: HYPERTENSION DEPRESSION AND ANXIETY Plan: CONTINUE LOSARTAN, METOPROLOL, HYDRALAZINE AND KLONOPIN PATIENT DISCUSSED WITH HOSPITALIST
[2018-06-02 15:39] LABS: COMPLEMENT C4 13.1 mg/dL (14.0-44.0)
--- NOTE | 2018-06-02 16:13 | CP.PCM.PN ---
Addendum entered and electronically signed by Miriam Rdz MD 06/02/18 16:22: PATIENT DOES NOT WANT DEMECLOCYCLINE, STATES SHE IS ALLERGIC TO ALL ANTIBITOICS Original Note: <Miriam Rdz - Last Filed: 06/02/18 16:22> Subjective - Date & Time of Evaluation Date of Evaluation: 06/02/18 Time of Evaluation: 16:07 - Subjective Subjective: 67 YO anxious female seen at bedside. States she feels horrible and needs STACIE. She states she has trouble walking to the bathroom and is upset with the service because her STACIE wasnt approved. Patient states she is refusing to go home untill she is sent to [facility]. - States she had chest pain yesterday and blurring of vision during bottle washer machine , however is currently denying chest pain. Objective - Vital Signs/Intake and Output Vital Signs (last 24 hours): Temp Pulse Resp BP Pulse Ox 98.0 F 66 18 99/66 L 100 06/02/18 09:39 06/02/18 12:39 06/02/18 09:39 06/02/18 12:39 06/02/18 09:39 - Medications Medications: Current Medications Acetaminophen (Tylenol 325mg Tab) 650 mg PO Q6 PRN PRN Reason: Headache Last Admin: 05/29/18 15:02 Dose: 650 mg Albuterol (Ventolin Hfa 90 Mcg/Actuation (8 G)) 2 puff INH Q6 PRN PRN Reason: Shortness of Breath Clonazepam (Klonopin) 0.25 mg PO BID PRN PRN Reason: Anxiety Last Admin: 06/01/18 02:04 Dose: 0.25 mg Clonidine HCl (Catapres) 0.1 mg PO BID [facility] Last Admin: 06/02/18 09:44 Dose: 0.1 mg Demeclocycline HCl (Declomycin) 150 mg PO QID [facility]; Protocol Last Admin: 06/02/18 12:36 Dose: Not Given Enoxaparin Sodium (Lovenox) 40 mg SC DAILY [facility]; Protocol Last Admin: 06/02/18 09:40 Dose: 40 mg Home Med (Patient's Own Medication) 1 unit PO SUN [facility] Last Admin: 06/02/18 09:40 Dose: 1 unit Home Med (Oxycodone [Oxycodone Immediate Release Tab]) 15 mg PO Q6H PRN PRN Reason: Pain, moderate (4-7) Last Admin: 06/02/18 10:55 Dose: 15 mg Home Med (Patient's Own Medication) 1 unit PO Q12 [facility]; Protocol Last Admin: 06/02/18 09:41 Dose: 1 unit Home Med (Patient's Own Medication) 1 unit PO DAILY [facility] Last Admin: 06/02/18 09:40 Dose: 1 unit Home Med (Patient's Own Medication) 1 unit PO DAILY [facility] Last Admin: 06/02/18 09:41 Dose: 1 unit Home Med (Patient's Own Medication) 1 unit PO Q12 [facility] Last Admin: 06/02/18 09:41 Dose: 1 unit Home Med (Patient's Own Medication) 1 unit PO Q12H [facility] Last Admin: 06/02/18 01:39 Dose: 1 unit Home Med (Zolpidem Tartrate [Ambien Cr]) 12.5 mg PO [facility] Last Admin: 06/02/18 01:26 Dose: 12.5 mg Home Med (Patient's Own Medication) 1 unit PO HS [facility] Last Admin: 06/01/18 21:36 Dose: 1 unit Home Med (Patient's Own Medication) 1 unit PO Q12 [facility] Last Admin: 06/02/18 10:08 Dose: 1 unit Hydralazine HCl (Apresoline) 50 mg PO Q6 PRN PRN Reason: Systolic Blood Pressure Last Admin: 06/01/18 15:54 Dose: 50 mg Hydralazine HCl (Apresoline) 20 mg PO TID [facility] Last Admin: 06/02/18 12:39 Dose: Not Given Lactulose (Enulose) 20 gm PO DAILY [facility] Last Admin: 06/02/18 09:45 Dose: 20 gm Levothyroxine Sodium (Synthroid) 125 mcg PO DAILY@0630 [facility] Last Admin: 06/02/18 06:12 Dose: 125 mcg Meclizine HCl (Antivert) 12.5 mg PO DAILY PRN PRN Reason: Dizziness Last Admin: 05/30/18 09:06 Dose: 12.5 mg Fluticasone/Salmeterol (Advair Diskus 250/50) 1 puff INH Q12 [facility] Last Admin: 06/02/18 09:38 Dose: 1 puff - Labs Labs: 05/29/18 06:50 06/01/18 05:30 - Constitutional Appears: Agitated - Head Exam Head Exam: NORMAL INSPECTION - ENT Exam ENT Exam: Mucous Membranes Moist - Respiratory Exam Respiratory Exam: Clear to Ausculation Bilateral, NORMAL BREATHING PATTERN. absent: Rhonchi, Wheezes - Cardiovascular Exam Cardiovascular Exam: REGULAR RHYTHM, +S1, +S2 - GI/Abdominal Exam GI & Abdominal Exam: Soft, Normal Bowel Sounds. absent: Tenderness - Extremities Exam Extremities Exam: Normal Inspection - Neurological Exam Neurological Exam: Awake, CN II-XII Intact, Oriented x3 - Skin Skin Exam: Normal Color, Warm Assessment and Plan - Assessment and Plan (Free Text) Assessment: 67 y/o female with PMH of Lupus, fibromyalgia, Hypothyroidism, Seizure Disorder and anxiety who is admitted here for evaluation and treatment of dizziness, anxiety and hyponatremia. Hyponatremia: possibly multifactorial - Serum Osm 276, Urine Osm 277 with Normal U Na+ and K+ - Consult, Nephrology, recommendations appreciated - high protein diet, liberalize salt for few days in diet, check BIJAL, c3,c4, - C/w Salt tab - Synthroid increased to 125mcg from 100mcg Anxiety - consult psych - Patient refusing to leave hospital untill she is able to go to [facility] Low AM Cortisol level - 3.2 on admission - Consult, Dr. Matthews, recommendations appreciated - High Cortisol, s/p Cortrosyn Dizziness: possibly due to dehydration vs medications - MRI reviewed: No acute changes noted - Meclizine 12.5mg PO daily - Cardiology recommendations appreciated HTN: - Chronic, uncontrolled - C/w Metoprolol 25 Q12H, Cozzar 100mg daily, Hydralazine 20mg PO TID and Clonidine 0.1mg PO BID - Hydralazine 50mg PO Q6H PRN if systolic BP >160 Hypothyroid: - Controlled - Synthroid 125mg Seizure: - Controlled - Trileptal 300mg Q12H Anxiety: - Consult, Psych, recommendations appreciated - C/w Klonopin 0.25 mg PO BID PRN GERD: - Controlled - Protonix 40mg daily Lupus/Fibromyalgia: - C/w home medications: Plaquenil 200mg Q12PO Daily, Oxycontin/Oxycodone DVT PPX: - Lovenox 40mg SC <Chance,Jonathon D - Last Filed: 06/02/18 17:29> Objective - Vital Signs/Intake and Output Vital Signs (last 24 hours): Temp Pulse Resp BP Pulse Ox 98.8 F 76 18 100/69 96 06/02/18 17:23 06/02/18 17:23 06/02/18 17:23 06/02/18 17:23 06/02/18 17:23 - Medications Medications: Current Medications Acetaminophen (Tylenol 325mg Tab) 650 mg PO Q6 PRN PRN Reason: Headache Last Admin: 05/29/18 15:02 Dose: 650 mg Albuterol (Ventolin Hfa 90 Mcg/Actuation (8 G)) 2 puff INH Q6 PRN PRN Reason: Shortness of Breath Clonazepam (Klonopin) 0.25 mg PO Q4 [facility] Clonidine HCl (Catapres) 0.1 mg PO BID [facility] Last Admin: 06/02/18 09:44 Dose: 0.1 mg Demeclocycline HCl (Declomycin) 150 mg PO QID [facility]; Protocol Last Admin: 06/02/18 12:36 Dose: Not Given Enoxaparin Sodium (Lovenox) 40 mg SC DAILY [facility]; Protocol Last Admin: 06/02/18 09:40 Dose: 40 mg Home Med (Patient's Own Medication) 1 unit PO SUN [facility] Last Admin: 06/02/18 09:40 Dose: 1 unit Home Med (Oxycodone [Oxycodone Immediate Release Tab]) 15 mg PO Q6H PRN PRN Reason: Pain, moderate (4-7) Last Admin: 06/02/18 10:55 Dose: 15 mg Home Med (Patient's Own Medication) 1 unit PO Q12 [facility]; Protocol Last Admin: 06/02/18 09:41 Dose: 1 unit Home Med (Patient's Own Medication) 1 unit PO DAILY [facility] Last Admin: 06/02/18 09:40 Dose: 1 unit Home Med (Patient's Own Medication) 1 unit PO DAILY [facility] Last Admin: 06/02/18 09:41 Dose: 1 unit Home Med (Patient's Own Medication) 1 unit PO Q12 [facility] Last Admin: 06/02/18 09:41 Dose: 1 unit Home Med (Patient's Own Medication) 1 unit PO Q12H [facility] Last Admin: 06/02/18 13:00 Dose: Not Given Home Med (Zolpidem Tartrate [Ambien Cr]) 12.5 mg PO [facility] Last Admin: 06/02/18 01:26 Dose: 12.5 mg Home Med (Patient's Own Medication) 1 unit PO [facility] Last Admin: 06/01/18 21:36 Dose: 1 unit Home Med (Patient's Own Medication) 1 unit PO Q12 [facility] Last Admin: 06/02/18 10:08 Dose: 1 unit Hydralazine HCl (Apresoline) 50 mg PO Q6 PRN PRN Reason: Systolic Blood Pressure Last Admin: 06/01/18 15:54 Dose: 50 mg Hydralazine HCl (Apresoline) 20 mg PO TID [facility] Last Admin: 06/02/18 12:39 Dose: Not Given Lactulose (Enulose) 20 gm PO DAILY [facility] Last Admin: 06/02/18 09:45 Dose: 20 gm Levothyroxine Sodium (Synthroid) 125 mcg PO DAILY@0630 [facility] Last Admin: 06/02/18 06:12 Dose: 125 mcg Meclizine HCl (Antivert) 12.5 mg PO DAILY PRN PRN Reason: Dizziness Last Admin: 05/30/18 09:06 Dose: 12.5 mg Fluticasone/Salmeterol (Advair Diskus 250/50) 1 puff INH Q12 [facility] Last Admin: 06/02/18 09:38 Dose: 1 puff - Labs Labs: 05/29/18 06:50 06/01/18 05:30 Attending/Attestation - Attestation I have personally seen and examined this patient.: Yes I have fully participated in the care of the patient.: Yes I have reviewed all pertinent clinical information, including history, physical exam and plan: Yes Notes (Text): 06/02/18 17:26 Patient seen and examined with resident. Still very anxious complaining of being weak but no chest pain today. Insisted that she would not want to go home but would want to be transferred to [facility]. Will request follow up with psychiatry for possible inpatient psyche management.
[2018-06-02] MEDS: PROTONIX 40 MG PO SCH (21:57)
[2018-06-03] MEDS: METOPROLOL TARTRATE 25 MG PO SCH ×3 (01:49→17:02)
[2018-06-03] MEDS: Levothyroxine 125 MCG TAB PO SCH (05:30)
[2018-06-03 08:43] LABS: ALBUMIN 3.2 g/dL (3.5-5.0); ALT/SGPT 28 U/L (9-52); AST/SGOT 27 U/L (14-36); BLOOD UREA NITROGEN 22 mg/dl (7-17); CALCIUM 8.3 mg/dL (8.4-10.2); GFR NON-AFRICAN AMERICAN > 60
--- NOTE | 2018-06-03 08:47 | PN ---
DATE: 06/02/2018 ENDO FOLLOWUP NOTE LOCATION: In room 408. SUBJECTIVE: This is a 67-year-old female admitted with persistent hyponatremia and has been undergoing a full metabolic workup at this time, is being followed closely now for metabolic management. She remains clinically and biochemically euthyroid at this time as noted. The ACTH or Cortrosyn stimulation test was undertaken to exclude the possibility of adrenal insufficiency. The report came in as normal with a cortisol level of 1.9, a metabolic response of 22.3 mcg/dL excluding the possibility of underlying adrenal insufficiency thereof. LABORATORY DATA: Her chemistries showed a BUN of 13, sodium 130, potassium 3.6, chloride 93, CO2 of 28, glucose 94, and creatinine 0.7. This is actually a lab test done yesterday with no current blood testing done today as noted. ASSESSMENT AND PLAN: We will obtain serial chemistries and supplement accordingly as needed. We will also continue the demeclocycline for management of euvolemic hyponatremia and possibly related to syndrome of inappropriate antidiuretic hormone at this point in time. We will obtain serial chemistries and supplement accordingly as needed. We will follow. Halley Matthews MD
[2018-06-03] MEDS: Fluticasone-Salmeterol 250-50mcg Diskus INH SCH ×2 (08:48→20:42)
[2018-06-03] MEDS: TRILEPTAL 300 MG PO SCH ×2 (08:49→20:43)
[2018-06-03] MEDS: THIAMINE 100 MG PO SCH (08:49)
[2018-06-03] MEDS: HYDROXYCHLOROQUINE 200 MG PO SCH ×2 (08:49→20:42)
[2018-06-03] MEDS: Enoxaparin 40 mg Syringe SC SCH (08:50)
[2018-06-03] MEDS: COZAAR 100 MG PO SCH (08:50)
--- NOTE | 2018-06-03 09:23 | CP.PCM.PN ---
Subjective - Date & Time of Evaluation Date of Evaluation: 06/02/18 Time of Evaluation: 08:30 - Subjective Subjective: NO CHEST PAIN OR SOB FEELS BETTER TODAY Objective - Vital Signs/Intake and Output Vital Signs (last 24 hours): Temp Pulse Resp BP Pulse Ox 97.9 F 62 18 134/76 98 06/03/18 08:18 06/03/18 08:51 06/03/18 08:18 06/03/18 08:51 06/03/18 08:18 - Medications Medications: Current Medications Acetaminophen (Tylenol 325mg Tab) 650 mg PO Q6 PRN PRN Reason: Headache Last Admin: 05/29/18 15:02 Dose: 650 mg Albuterol (Ventolin Hfa 90 Mcg/Actuation (8 G)) 2 puff INH Q6 PRN PRN Reason: Shortness of Breath Clonazepam (Klonopin) 0.25 mg PO Q6 [facility] Last Admin: 06/03/18 05:26 Dose: 0.25 mg Clonidine HCl (Catapres) 0.1 mg PO BID [facility] Last Admin: 06/02/18 17:50 Dose: Not Given Demeclocycline HCl (Declomycin) 150 mg PO QID [facility]; Protocol Last Admin: 06/03/18 09:00 Dose: Not Given Enoxaparin Sodium (Lovenox) 40 mg SC DAILY [facility]; Protocol Last Admin: 06/03/18 08:50 Dose: 40 mg Home Med (Patient's Own Medication) 1 unit PO SUN [facility] Last Admin: 06/02/18 09:40 Dose: 1 unit Home Med (Oxycodone [Oxycodone Immediate Release Tab]) 15 mg PO Q6H PRN PRN Reason: Pain, moderate (4-7) Last Admin: 06/02/18 10:55 Dose: 15 mg Home Med (Patient's Own Medication) 1 unit PO Q12 [facility]; Protocol Last Admin: 06/03/18 08:49 Dose: 1 unit Home Med (Patient's Own Medication) 1 unit PO DAILY [facility] Last Admin: 06/03/18 08:50 Dose: 1 unit Home Med (Patient's Own Medication) 1 unit PO DAILY [facility] Last Admin: 06/03/18 08:49 Dose: 1 unit Home Med (Patient's Own Medication) 1 unit PO Q12 [facility] Last Admin: 06/03/18 08:49 Dose: 1 unit Home Med (Patient's Own Medication) 1 unit PO Q12H [facility] Last Admin: 06/03/18 01:49 Dose: 1 unit Home Med (Zolpidem Tartrate [Ambien Cr]) 12.5 mg PO [facility] Last Admin: 06/03/18 01:47 Dose: 12.5 mg Home Med (Patient's Own Medication) 1 unit PO HS [facility] Last Admin: 06/02/18 21:57 Dose: 1 unit Home Med (Patient's Own Medication) 1 unit PO Q12 [facility] Last Admin: 06/02/18 22:58 Dose: 1 unit Hydralazine HCl (Apresoline) 50 mg PO Q6 PRN PRN Reason: Systolic Blood Pressure Last Admin: 06/01/18 15:54 Dose: 50 mg Hydralazine HCl (Apresoline) 20 mg PO TID [facility] Last Admin: 06/03/18 08:51 Dose: 20 mg Lactulose (Enulose) 20 gm PO DAILY [facility] Last Admin: 06/03/18 08:52 Dose: 20 gm Levothyroxine Sodium (Synthroid) 125 mcg PO DAILY@0630 [facility] Last Admin: 06/03/18 05:30 Dose: 125 mcg Meclizine HCl (Antivert) 12.5 mg PO DAILY PRN PRN Reason: Dizziness Last Admin: 05/30/18 09:06 Dose: 12.5 mg Fluticasone/Salmeterol (Advair Diskus 250/50) 1 puff INH Q12 [facility] Last Admin: 06/03/18 08:48 Dose: 1 puff - Labs Labs: 05/29/18 06:50 06/03/18 07:30 - Respiratory Exam Respiratory Exam: Clear to Ausculation Bilateral - Cardiovascular Exam Cardiovascular Exam: REGULAR RHYTHM, +S1, +S2 - Extremities Exam Additional comments: NO SIGNIFICANT LE EDEMA - Additional Findings Additional findings: FRAUD INVESTIGATOR NSR BP 130/75 BY ME Assessment and Plan - Assessment and Plan (Free Text) Assessment: HYPERTENSION DEPRESSION AND ANXIETY Plan: CONTINUE METOPROLOL, LOSARTAN AND HYDRALAZINE RENAL US ORDERED TO ASSESS FOR POSSIBLE RENAL ARTERY STENOSIS
--- NOTE | 2018-06-03 09:55 | CP.PCM.PN ---
<Joe Desaison - Last Filed: 06/03/18 15:58> Subjective - Date & Time of Evaluation Date of Evaluation: 06/03/18 Time of Evaluation: 09:52 - Subjective Subjective: 67 yo female seen and evaluated at bedside with Dr. Palmer. States that she does not feel as bad as yesterday but is still lethargic and unsteady on her feet. Denies CP/SOB/C/F/N/V. States she is less anxious than yesterday. States that she still feels like she needs help ambulating to and from the bathroom. Objective - Vital Signs/Intake and Output Vital Signs (last 24 hours): Temp Pulse Resp BP Pulse Ox 97.9 F 62 18 134/76 98 06/03/18 08:18 06/03/18 08:51 06/03/18 08:18 06/03/18 08:51 06/03/18 08:18 - Medications Medications: Current Medications Acetaminophen (Tylenol 325mg Tab) 650 mg PO Q6 PRN PRN Reason: Headache Last Admin: 05/29/18 15:02 Dose: 650 mg Albuterol (Ventolin Hfa 90 Mcg/Actuation (8 G)) 2 puff INH Q6 PRN PRN Reason: Shortness of Breath Clonazepam (Klonopin) 0.25 mg PO Q6 [facility] Last Admin: 06/03/18 05:26 Dose: 0.25 mg Clonidine HCl (Catapres) 0.1 mg PO BID [facility] Last Admin: 06/02/18 17:50 Dose: Not Given Demeclocycline HCl (Declomycin) 150 mg PO QID [facility]; Protocol Last Admin: 06/03/18 09:00 Dose: Not Given Enoxaparin Sodium (Lovenox) 40 mg SC DAILY [facility]; Protocol Last Admin: 06/03/18 08:50 Dose: 40 mg Home Med (Patient's Own Medication) 1 unit PO SUN [facility] Last Admin: 06/02/18 09:40 Dose: 1 unit Home Med (Oxycodone [Oxycodone Immediate Release Tab]) 15 mg PO Q6H PRN PRN Reason: Pain, moderate (4-7) Last Admin: 06/02/18 10:55 Dose: 15 mg Home Med (Patient's Own Medication) 1 unit PO Q12 [facility]; Protocol Last Admin: 06/03/18 08:49 Dose: 1 unit Home Med (Patient's Own Medication) 1 unit PO DAILY [facility] Last Admin: 06/03/18 08:50 Dose: 1 unit Home Med (Patient's Own Medication) 1 unit PO DAILY [facility] Last Admin: 06/03/18 08:49 Dose: 1 unit Home Med (Patient's Own Medication) 1 unit PO Q12 [facility] Last Admin: 06/03/18 08:49 Dose: 1 unit Home Med (Patient's Own Medication) 1 unit PO Q12H [facility] Last Admin: 06/03/18 01:49 Dose: 1 unit Home Med (Zolpidem Tartrate [Ambien Cr]) 12.5 mg PO [facility] Last Admin: 06/03/18 01:47 Dose: 12.5 mg Home Med (Patient's Own Medication) 1 unit PO HS [facility] Last Admin: 06/02/18 21:57 Dose: 1 unit Home Med (Patient's Own Medication) 1 unit PO Q12 [facility] Last Admin: 06/02/18 22:58 Dose: 1 unit Hydralazine HCl (Apresoline) 50 mg PO Q6 PRN PRN Reason: Systolic Blood Pressure Last Admin: 06/01/18 15:54 Dose: 50 mg Hydralazine HCl (Apresoline) 20 mg PO TID [facility] Last Admin: 06/03/18 08:51 Dose: 20 mg Lactulose (Enulose) 20 gm PO DAILY [facility] Last Admin: 06/03/18 08:52 Dose: 20 gm Levothyroxine Sodium (Synthroid) 125 mcg PO DAILY@0630 [facility] Last Admin: 06/03/18 05:30 Dose: 125 mcg Meclizine HCl (Antivert) 12.5 mg PO DAILY PRN PRN Reason: Dizziness Last Admin: 05/30/18 09:06 Dose: 12.5 mg Fluticasone/Salmeterol (Advair Diskus 250/50) 1 puff INH Q12 [facility] Last Admin: 06/03/18 08:48 Dose: 1 puff - Labs Labs: 05/29/18 06:50 06/03/18 07:30 - Constitutional Appears: Well, Non-toxic - Head Exam Head Exam: NORMAL INSPECTION - ENT Exam ENT Exam: Mucous Membranes Moist - Respiratory Exam Respiratory Exam: Clear to Ausculation Bilateral, NORMAL BREATHING PATTERN - Cardiovascular Exam Cardiovascular Exam: REGULAR RHYTHM, +S1, +S2 - GI/Abdominal Exam GI & Abdominal Exam: Soft, Normal Bowel Sounds - Extremities Exam Extremities Exam: Full ROM, Normal Capillary Refill, Normal Inspection - Neurological Exam Neurological Exam: Alert, Awake, CN II-XII Intact, Oriented x3 - Skin Skin Exam: Intact, Normal Color, Warm Assessment and Plan - Assessment and Plan (Free Text) Assessment: 67 y/o female with PMH of Lupus, fibromyalgia, Hypothyroidism, Seizure Disorder and anxiety who is admitted here for evaluation and treatment of dizziness, anxiety and hyponatremia. Plan: 1. Hyponatremia: possibly multifactorial - Serum Osm 276, Urine Osm 277 with Normal U Na+ and K+ - Consult, Nephrology, recommendations appreciated - high protein diet, liberalize salt for few days in diet, check BIJAL, c3,c4, - C/w Salt tab - Synthroid increased to 125mcg from 100mcg - Na today: 130 2. Anxiety - Dr. Stoddard consulted (06/03) for reevaluation of increased anxiety - Psych consult - recs appreciated - C/w Klonopin 0.25 mg PO BID PRN 3. Low AM Cortisol level - 3.2 on admission - Consult, Dr. Matthews, recommendations appreciated - High Cortisol, s/p Cortrosyn 4. Dizziness: possibly due to dehydration vs medications - MRI reviewed: No acute changes noted - Meclizine 12.5mg PO daily - Cardiology recommendations appreciated - Dr. Gallo ordered Renal duplex ultrasound - will f/u results - Patient to be NPO - Patient admission awaiting placement to [facility] - will continue to f/u 5. HTN: - Chronic, uncontrolled - C/w Metoprolol 25 Q12H, Cozzar 100mg daily, Hydralazine 20mg PO TID and Clonidine 0.1mg PO BID - Hydralazine 50mg PO Q6H PRN if systolic BP >160 6. Hypothyroid: - Controlled - Synthroid 125mg 7. Seizure: - Controlled - Trileptal 300mg Q12H 8. GERD: - Controlled - Protonix 40mg daily 9. Lupus/Fibromyalgia: - C/w home medications: Plaquenil 200mg Q12PO Daily, Oxycontin/Oxycodone 10. DVT PPX: - Lovenox 40mg SC <Rhoda Palmer - Last Filed: 06/03/18 20:13> Objective - Vital Signs/Intake and Output Vital Signs (last 24 hours): Temp Pulse Resp BP Pulse Ox 98.1 F 67 18 146/76 96 06/03/18 16:26 06/03/18 17:39 06/03/18 16:26 06/03/18 17:39 06/03/18 16:26 - Medications Medications: Current Medications Acetaminophen (Tylenol 325mg Tab) 650 mg PO Q6 PRN PRN Reason: Headache Last Admin: 05/29/18 15:02 Dose: 650 mg Albuterol (Ventolin Hfa 90 Mcg/Actuation (8 G)) 2 puff INH Q6 PRN PRN Reason: Shortness of Breath Clonazepam (Klonopin) 0.5 mg PO Q12 PRN PRN Reason: Anxiety Last Admin: 06/03/18 17:42 Dose: 0.5 mg Clonidine HCl (Catapres) 0.1 mg PO BID [facility] Last Admin: 06/03/18 17:39 Dose: 0.1 mg Enoxaparin Sodium (Lovenox) 40 mg SC DAILY [facility]; Protocol Last Admin: 06/03/18 08:50 Dose: 40 mg Home Med (Patient's Own Medication) 1 unit PO SUN [facility] Last Admin: 06/02/18 09:40 Dose: 1 unit Home Med (Oxycodone [Oxycodone Immediate Release Tab]) 15 mg PO Q6H PRN PRN Reason: Pain, moderate (4-7) Last Admin: 06/03/18 13:36 Dose: 15 mg Home Med (Patient's Own Medication) 1 unit PO Q12 [facility]; Protocol Last Admin: 06/03/18 08:49 Dose: 1 unit Home Med (Patient's Own Medication) 1 unit PO DAILY [facility] Last Admin: 06/03/18 08:50 Dose: 1 unit Home Med (Patient's Own Medication) 1 unit PO DAILY [facility] Last Admin: 06/03/18 08:49 Dose: 1 unit Home Med (Patient's Own Medication) 1 unit PO Q12 [facility] Last Admin: 06/03/18 08:49 Dose: 1 unit Home Med (Patient's Own Medication) 1 unit PO Q12H [facility] Last Admin: 06/03/18 17:02 Dose: Not Given Home Med (Zolpidem Tartrate [Ambien Cr]) 12.5 mg PO HS [facility] Last Admin: 06/03/18 01:47 Dose: 12.5 mg Home Med (Patient's Own Medication) 1 unit PO HS [facility] Last Admin: 06/02/18 21:57 Dose: 1 unit Home Med (Patient's Own Medication) 1 unit PO Q12 [facility] Last Admin: 06/03/18 11:47 Dose: 1 unit Hydralazine HCl (Apresoline) 50 mg PO Q6 PRN PRN Reason: Systolic Blood Pressure Last Admin: 06/01/18 15:54 Dose: 50 mg Hydralazine HCl (Apresoline) 20 mg PO TID [facility] Last Admin: 06/03/18 17:38 Dose: 20 mg Lactulose (Enulose) 20 gm PO DAILY [facility] Last Admin: 06/03/18 08:52 Dose: 20 gm Levothyroxine Sodium (Synthroid) 125 mcg PO DAILY@0630 [facility] Last Admin: 06/03/18 05:30 Dose: 125 mcg Meclizine HCl (Antivert) 12.5 mg PO DAILY PRN PRN Reason: Dizziness Last Admin: 05/30/18 09:06 Dose: 12.5 mg Fluticasone/Salmeterol (Advair Diskus 250/50) 1 puff INH Q12 [facility] Last Admin: 06/03/18 08:48 Dose: 1 puff - Labs Labs: 05/29/18 06:50 06/03/18 07:30 Attending/Attestation - Attestation I have personally seen and examined this patient.: Yes I have fully participated in the care of the patient.: Yes I have reviewed all pertinent clinical information, including history, physical exam and plan: Yes Notes (Text): Hyponatremia prob sec to SIADH due to to medication ( Trileptal), HYpothyroidism Adrenal Insufficiency ruled out Dizziness Deconditioning Anxiety Dis
--- NOTE | 2018-06-03 11:27 | CP.PCM.CON ---
History of Present Illness - History of Present Illness History of Present Illness: Psychiatry follow-up note CC: "I'm upset" HPI: 67 y/o female with PMH of Lupus, fibromyalgia, Hypothyroidism, Seizure Disorder and anxiety who is admitted here for evaluation and treatment of dizziness and hyponatremia; now improved. Patient reports that she currently feels anxious. She was dramatic on interview when describing her life experiences and seems to exaggerate symptoms at times. No acute AH/VH/SI/HI. MSE: A + O x 3, calm but dramatic at times, good eye contact, thought process- linear/coherent, thought content- no delusions, mood- anxious, affect- histrionic; no AH/VH/SI/HI; fair I/J Impression: 67 yo female w/ h/o depression and anxiety, r/o personality disorder, is psychiatrically stable for discharge. -No acute inpatient psychiatric admission indicated -Can increase Klonopin 0.5 mg Q12 hr PRN anxiety Past Patient History - Infectious Disease Hx of Infectious Diseases: None - Past Medical History & Family History Past Medical History?: Yes - Past Social History Smoking Status: Never Smoked - CARDIAC Hx Cardiac Disorders: Yes Hx Hypertension: Yes - PULMONARY Hx Respiratory Disorders: No - NEUROLOGICAL Hx Neurological Disorder: Yes Hx Seizures: Yes Other/Comment: fibromyalgia - HEENT Hx HEENT Problems: No - RENAL Hx Chronic Kidney Disease: Yes Hx Kidney Stones: Yes - ENDOCRINE/METABOLIC Hx Endocrine Disorders: Yes Hx Hypothyroidism: Yes Hx Systemic Lupus Erythematosus: Yes - HEMATOLOGICAL/ONCOLOGICAL Hx Blood Disorders: No - INTEGUMENTARY Hx Dermatological Problems: No - MUSCULOSKELETAL/RHEUMATOLOGICAL Hx Musculoskeletal Disorders: Yes Hx Falls: Yes Hx Herniated Disk: Yes Hx Rheumatoid Arthritis: Yes - GASTROINTESTINAL Hx Gastrointestinal Disorders: Yes Hx Gastroesophageal Reflux: Yes - GENITOURINARY/GYNECOLOGICAL Hx Genitourinary Disorders: No - PSYCHIATRIC Hx Psychophysiologic Disorder: Yes Hx Anxiety: Yes Hx Depression: Yes Hx Substance Use: No - SURGICAL HISTORY Hx Surgeries: Yes Hx Section: Yes Hx Tonsillectomy: Yes Other/Comment: Hx Bunionectomy - ANESTHESIA Hx Anesthesia: Yes Hx Anesthesia Reactions: No Hx Malignant Hyperthermia: No Has any member of the family had a problem w/ anesthesia?: No Meds Home Medications: Home Medication List Medication Instructions Recorded Confirmed Type Demeclocycline [Declomycin] 150 mg PO QID #120 tab 06/01/18 Rx Levothyroxine [Synthroid] 125 mcg PO DAILY@0630 #30 tab 06/01/18 Rx cloNIDine [Catapres] 0.1 mg PO BID #60 tab 06/01/18 Rx clonazePAM [Klonopin] 0.25 mg PO BID PRN #30 tab 06/01/18 Rx hydrALAZINE [Apresoline] 20 mg PO TID #90 tab 06/01/18 Rx Allergies/Adverse Reactions: Allergies Allergy/AdvReac Type Severity Reaction Status Date / Time amlodipine [From Norvasc] Allergy RASH Verified 05/28/18 20:39 aspirin Allergy RASH Verified 05/28/18 20:39 bupropion Allergy see below Verified 05/28/18 20:39 [From Wellbutrin SR] ciprofloxacin [From Cipro] Allergy RASH Verified 05/28/18 20:39 clopidogrel [From Plavix] Allergy bruising Verified 05/28/18 20:39 ibuprofen [From Motrin] Allergy RASH Verified 05/28/18 20:39 phenytoin [From Dilantin] Allergy RASH Verified 05/28/18 20:39 quetiapine [From Seroquel] AdvReac see below Verified 05/28/18 20:39 tramadol [From Ultram] AdvReac see below Verified 05/28/18 20:39 - Medications Medications: Current Medications Acetaminophen (Tylenol 325mg Tab) 650 mg PO Q6 PRN PRN Reason: Headache Last Admin: 05/29/18 15:02 Dose: 650 mg Albuterol (Ventolin Hfa 90 Mcg/Actuation (8 G)) 2 puff INH Q6 PRN PRN Reason: Shortness of Breath Clonazepam (Klonopin) 0.25 mg PO Q6 [facility] Last Admin: 06/03/18 05:26 Dose: 0.25 mg Clonidine HCl (Catapres) 0.1 mg PO BID [facility] Last Admin: 06/02/18 17:50 Dose: Not Given Demeclocycline HCl (Declomycin) 150 mg PO QID [facility]; Protocol Last Admin: 06/03/18 09:00 Dose: Not Given Enoxaparin Sodium (Lovenox) 40 mg SC DAILY [facility]; Protocol Last Admin: 06/03/18 08:50 Dose: 40 mg Home Med (Patient's Own Medication) 1 unit PO SUN [facility] Last Admin: 06/02/18 09:40 Dose: 1 unit Home Med (Oxycodone [Oxycodone Immediate Release Tab]) 15 mg PO Q6H PRN PRN Reason: Pain, moderate (4-7) Last Admin: 06/02/18 10:55 Dose: 15 mg Home Med (Patient's Own Medication) 1 unit PO Q12 [facility]; Protocol Last Admin: 06/03/18 08:49 Dose: 1 unit Home Med (Patient's Own Medication) 1 unit PO DAILY [facility] Last Admin: 06/03/18 08:50 Dose: 1 unit Home Med (Patient's Own Medication) 1 unit PO DAILY [facility] Last Admin: 06/03/18 08:49 Dose: 1 unit Home Med (Patient's Own Medication) 1 unit PO Q12 [facility] Last Admin: 06/03/18 08:49 Dose: 1 unit Home Med (Patient's Own Medication) 1 unit PO Q12H [facility] Last Admin: 06/03/18 01:49 Dose: 1 unit Home Med (Zolpidem Tartrate [Ambien Cr]) 12.5 mg PO [facility] Last Admin: 06/03/18 01:47 Dose: 12.5 mg Home Med (Patient's Own Medication) 1 unit PO [facility] Last Admin: 06/02/18 21:57 Dose: 1 unit Home Med (Patient's Own Medication) 1 unit PO Q12 [facility] Last Admin: 06/02/18 22:58 Dose: 1 unit Hydralazine HCl (Apresoline) 50 mg PO Q6 PRN PRN Reason: Systolic Blood Pressure Last Admin: 06/01/18 15:54 Dose: 50 mg Hydralazine HCl (Apresoline) 20 mg PO TID [facility] Last Admin: 06/03/18 08:51 Dose: 20 mg Lactulose (Enulose) 20 gm PO DAILY [facility] Last Admin: 06/03/18 08:52 Dose: 20 gm Levothyroxine Sodium (Synthroid) 125 mcg PO DAILY@0630 [facility] Last Admin: 06/03/18 05:30 Dose: 125 mcg Meclizine HCl (Antivert) 12.5 mg PO DAILY PRN PRN Reason: Dizziness Last Admin: 05/30/18 09:06 Dose: 12.5 mg Fluticasone/Salmeterol (Advair Diskus 250/50) 1 puff INH Q12 [facility] Last Admin: 06/03/18 08:48 Dose: 1 puff Results - Vital Signs Recent Vital Signs: Last Vital Signs Temp 97.9 F 06/03/18 08:18 Pulse 62 06/03/18 08:51 Resp 18 06/03/18 08:18 BP 134/76 06/03/18 08:51 Pulse Ox 98 06/03/18 08:18 - Labs Result Diagrams: 05/29/18 06:50 06/03/18 07:30 Labs: Laboratory Results - last 24 hr 06/02/18 06/02/18 06/03/18 06:00 11:10 07:30 Sodium 130 L Potassium 3.8 Chloride 96 L Carbon Dioxide 27 Anion Gap 11 BUN 22 H Creatinine 0.9 Est GFR ( Amer) > 60 Est GFR (Non-Af Amer) > 60 Random Glucose 89 Calcium 8.3 L Total Bilirubin 0.3 AST 27 ALT 28 Alkaline Phosphatase 72 Troponin I < 0.0120 Total Protein 6.4 Albumin 3.2 L Globulin 3.2 Albumin/Globulin Ratio 1.0 Complement C3 70.0 L Complement C4 13.1 L
[2018-06-03] MEDS: OXYCONTIN 10 MG PO SCH ×2 (11:47→20:45)
[2018-06-03] MEDS: OXYCODONE PO PRN (13:36)
--- NOTE | 2018-06-03 15:07 | CARD ---
APPROVED REPORT Date of service: 06/01/2018 EKG Measurement Heart [id number] ID [id number] <Conclusion> Normal sinus rhythm Limb lead reversal of I and aVR Otherwise normal ECG
--- NOTE | 2018-06-03 15:32 | PN ---
DATE: 06/03/2018 ENDOCRINOLOGY FOLLOWUP NOTE LOCATION: In room 408. SUBJECTIVE: This is a 67-year-old female with recent admission for generalized body weakness and persistent hyponatremia and is now being followed closely for metabolic management. LABORATORY DATA: The repeat chemistries today showed a BUN of 22, sodium 130, potassium 3.8, chloride 96, CO2 of 27, glucose 89, and creatinine 0.9. ASSESSMENT AND PLAN: The Cortrosyn stimulation test was undertaken and was also reported as normal, excluding the possibility of underlying adrenal insufficiency. She has been started empirically on demeclocycline for euvolemic hyponatremia as noted. We will continue the same dosing of 150 mg p.o. q.i.d. and we will titrate incrementally as indicated if she continues to have persistent hyponatremia. We will follow and advise accordingly. Halley Matthews MD
--- NOTE | 2018-06-03 17:49 | US ---
Date of service: 06/03/2018 PROCEDURE: Ultrasonography renal arterial evaluation HISTORY: r/o renal stenosis COMPARISON: None available. TECHNIQUE: Real-time ultrasonography evaluation of the renal arteries were performed. Comparison is made to the aorta. Report prepared by pet technologist. FINDINGS: AORTA: Patent. Peak systolic velocity 103.9 centimeters/second RIGHT RENAL ARTERY: Renal artery to aorta ratio: 1.1 * Proximal segment: Patent. Peak systolic velocity 111.3 centimeters/second * Mid segment: Patent. Peak systolic velocity 82.1 centimeters/second * Distal segment: Patent. Peak systolic velocity 78.3 centimeters/second Other findings: Right Kidney measures approximately 10.3 centimeters. LEFT RENAL ARTERY: Renal artery to aorta ratio: 1.2 * Proximal segment: Patent. Peak systolic velocity 129.2 centimeters/second * Mid segment: Not visible * Distal segment: Patent. Peak systolic velocity 69.1 centimeters/second Other findings: Left Kidney measures approximately 10.4 centimeters. IMPRESSION: Limited evaluation. No definite hemodynamically significant stenosis involving the renal arteries as visualized. (Please note that the proximal left peroneal artery was not visualized.
[2018-06-03 20:02] VITALS: BP 124/75; PULSE 83; TEMP 97.8; O2SAT 100
[2018-06-03] MEDS: PROTONIX 40 MG PO SCH (20:42)
--- NOTE | 2018-06-04 08:58 | CP.PCM.DIS ---
<GiselleDomingo - Last Filed: 06/04/18 08:56> Provider - Provider Date of Admission: 05/30/18 14:53 Attending physician: Jaleel Finley MD Primary care physician: Dr. Edwards Consults: Psych - Dr. Stoddard Cardiology - Dr. Gallo Endocrine - Dr. Matthews Nephro - Dr. Simpson Time Spent in preparation of Discharge (in minutes): 30 Diagnosis - Discharge Diagnosis (1) Dizziness Status: Acute (2) Hyponatremia Status: Acute Hospital Course - Lab Results Lab Results: Most Recent Lab Values WBC 3.9 K/uL (4.8-10.8) L 05/29/18 06:50 RBC 4.55 Mil/uL (3.80-5.20) 05/29/18 06:50 Hgb 12.6 g/dL (12.0-16.0) 05/29/18 06:50 Hct 38.0 % (34.0-47.0) 05/29/18 06:50 MCV 83.5 fl (81.0-99.0) 05/29/18 06:50 MCH 27.8 pg (27.0-31.0) 05/29/18 06:50 MCHC 33.2 g/dL (33.0-37.0) 05/29/18 06:50 RDW 13.8 % (11.5-14.5) 05/29/18 06:50 Plt Count 163 K/uL (130-400) 05/29/18 06:50 MPV 8.0 fl (7.2-11.7) 05/28/18 21:30 Neut % (Auto) 72.2 % (50.0-75.0) 05/28/18 21:30 Lymph % (Auto) 13.9 % (20.0-40.0) L 05/28/18 21:30 Hubbard % (Auto) 11.7 % (0.0-10.0) H 05/28/18 21:30 Eos % (Auto) 1.4 % (0.0-4.0) 05/28/18 21:30 Baso % (Auto) 0.8 % (0.0-2.0) 05/28/18 21:30 Neut # (Auto) 3.5 K/uL (1.8-7.0) 05/28/18 21:30 Lymph # (Auto) 0.7 K/uL (1.0-4.3) L 05/28/18 21:30 Hubbard # (Auto) 0.6 K/uL (0.0-0.8) 05/28/18 21:30 Eos # (Auto) 0.1 K/uL (0.0-0.7) 05/28/18 21:30 Baso # (Auto) 0.0 K/uL (0.0-0.2) 05/28/18 21:30 ESR 10 mm/hr (0-30) 05/28/18 21:30 Sodium 130 mmol/l (132-148) L 06/03/18 07:30 Potassium 3.8 MMOL/L (3.6-5.0) 06/03/18 07:30 Chloride 96 mmol/L (98-107) L 06/03/18 07:30 Carbon Dioxide 27 mmol/L (22-30) 06/03/18 07:30 Anion Gap 11 (10-20) 06/03/18 07:30 BUN 22 mg/dl (7-17) H 06/03/18 07:30 Creatinine 0.9 mg/dl (0.7-1.2) 06/03/18 07:30 Est GFR ( Amer) > 60 06/03/18 07:30 Est GFR (Non-Af Amer) > 60 06/03/18 07:30 Random Glucose 89 mg/dL (65-105) 06/03/18 07:30 Serum Osmolality 276 mosm/kg (272-300) 05/29/18 04:55 Calcium 8.3 mg/dL (8.4-10.2) L 06/03/18 07:30 Total Bilirubin 0.3 mg/dl (0.2-1.3) 06/03/18 07:30 AST 27 U/L (14-36) 06/03/18 07:30 ALT 28 U/L (9-52) 06/03/18 07:30 Alkaline Phosphatase 72 U/L (38-126) 06/03/18 07:30 Troponin I < 0.0120 ng/mL (0.00-0.120) 06/02/18 11:10 NT-Pro-B Natriuret Pep 334 pg/ml (0-900) 06/02/18 06:00 Total Protein 6.4 G/DL (6.3-8.2) 06/03/18 07:30 Albumin 3.2 g/dL (3.5-5.0) L 06/03/18 07:30 Globulin 3.2 gm/dL (2.2-3.9) 06/03/18 07:30 Albumin/Globulin Ratio 1.0 (1.0-2.1) 06/03/18 07:30 TSH 3rd Generation 1.45 mIU/ML (0.46-4.68) 05/29/18 04:55 Cortisol AM Sample 1.9 ug/dL (4.46-22.7) L 05/31/18 05:35 Plasma Cortisol PM 22.3 ug/dL (1.7-14.1) H 05/31/18 14:20 Urine Color Straw (YELLOW) 05/28/18 21:42 Urine Clarity Clear (Clear) 05/28/18 21:42 Urine pH 7.0 (5.0-8.0) 05/28/18 21:42 Ur Specific [place] 1.008 (1.003-1.030) 05/28/18 21:42 Urine Protein Negative mg/dL (NEGATIVE) 05/28/18 21:42 Urine Glucose (UA) Neg mg/dL (Normal) 05/28/18 21:42 Urine Ketones Negative mg/dL (NEGATIVE) 05/28/18 21:42 Urine Blood Negative (NEGATIVE) 05/28/18 21:42 Urine Nitrate Negative (NEGATIVE) 05/28/18 21:42 Urine Bilirubin Negative (NEGATIVE) 05/28/18 21:42 Urine Urobilinogen 0.2-1.0 mg/dL (0.2-1.0) 05/28/18 21:42 Ur Leukocyte Esterase Neg Laly/uL (Negative) 05/28/18 21:42 Urine RBC (Auto) 1 /hpf (0-3) 05/28/18 21:42 Urine Microscopic WBC < 1 /hpf (0-5) 05/28/18 21:42 Urine Osmolality 277 mosm/kg (300-1000) L 05/29/18 04:55 Ur Random Sodium 35 meq/L 05/29/18 04:55 Ur Random Potassium 36.6 mmol/L 05/29/18 04:55 Complement C3 70.0 mg/dL (88.0-165.0) L 06/02/18 06:00 Complement C4 13.1 mg/dL (14.0-44.0) L 06/02/18 06:00 - Hospital Course Hospital Course: 67 yo female with pmhx of HTN, Lupus, Anxiety, depression presents to ED on 05/29/18 and was seen and evaluated for dizziness and hyponatremia. For her hyponatremia, believed to be multifactorial, nephrology was consulted and recommended high protein diet, liberalize salt for a few days in diet, and check BIJAL, c3 and c4. Continued with salt tabs and synthroid was incread to 125 mcg from 100 mcg. Her hyponatremia improved during her stay. For anxiety psych was consulted and she was placed on klonopin 0.[address] Matthews was consulted for low AM cortisol levels which was 3.2 on admission, given cortrosyn, high cortisol s/p dose. For dizziness an MRI was taken and no acute changes were noted. She was started on meclizine 12.5mg PO daily. Cardiology was consulted, renal duplex ultrasound was taken - no definie hemodynamically significant stenosis involving the renal arteries as visualized. For her hypertension she was continued with metoprolol, cozzar, hydralazine, and clonidine. Hypothyroidism controlled with synthroid, seizure controlled with trileptal, GERD with protonix, lupus and fibromyalgia controlled with plaquenil , oxycontin/oxycodone. Patient was unsteady ambulating and getting too and from the bathroom on her own. Seen by PT. Patient was accepted to [facility]. Picked up by transport accompanied by . - Date & Time of H&P Date of H&P: 06/04/18 Time of H&P: 08:59 Discharge Exam - Head Exam Head Exam: NORMAL INSPECTION - ENT Exam ENT Exam: Mucous Membranes Moist - Respiratory Exam Respiratory Exam: Clear to PA & Lateral, NORMAL BREATHING PATTERN - Cardiovascular Exam Cardiovascular Exam: REGULAR RHYTHM, +S1, +S2 - GI/Abdominal Exam GI & Abdominal Exam: Normal Bowel Sounds, Soft - Extremities Exam Extremities exam: full ROM, normal capillary refill, pedal pulses present - Neurological Exam Neurological exam: Alert, CN II-XII Intact, Oriented x3 - Skin Skin Exam: Intact, Normal Color, Warm Discharge Plan - Discharge Medications Prescriptions: RX: clonazePAM [Klonopin] 0.25 mg PO BID PRN #30 tab PRN Reason: Anxiety RX: cloNIDine [Catapres] 0.1 mg PO BID #60 tab RX: Demeclocycline [Declomycin] 150 mg PO QID #120 tab RX: hydrALAZINE [Apresoline] 20 mg PO TID #90 tab RX: Levothyroxine [Synthroid] 100 mcg PO DAILY #1 tab - Follow Up Plan Condition: FAIR Disposition: TRANSF TO SNF Instructions: Hyponatremia (DC), Hyponatremia (DC) Additional Instructions: ff up with Dr Edwards as soon as discharged from [facility] appt as outpt alejandro Referrals: Kelsey Martinez MD [Medical Doctor] - Cecil Edwards MD [Staff Provider] - Shorty Gallo MD [Staff Provider] - Clinical Quality Measures - Date & Time of Discharge Summary Date of Discharge Summary: 06/04/18 Time of Discharge Summary: 09:51 <Rhoda Palmer - Last Filed: 06/04/18 17:25> Provider - Provider Date of Admission: 05/30/18 14:53 Attending physician: Jaleel Finley MD Hospital Course - Lab Results Lab Results: Most Recent Lab Values WBC 3.9 K/uL (4.8-10.8) L 05/29/18 06:50 RBC 4.55 Mil/uL (3.80-5.20) 05/29/18 06:50 Hgb 12.6 g/dL (12.0-16.0) 05/29/18 06:50 Hct 38.0 % (34.0-47.0) 05/29/18 06:50 MCV 83.5 fl (81.0-99.0) 05/29/18 06:50 MCH 27.8 pg (27.0-31.0) 05/29/18 06:50 MCHC 33.2 g/dL (33.0-37.0) 05/29/18 06:50 RDW 13.8 % (11.5-14.5) 05/29/18 06:50 Plt Count 163 K/uL (130-400) 05/29/18 06:50 MPV 8.0 fl (7.2-11.7) 05/28/18 21:30 Neut % (Auto) 72.2 % (50.0-75.0) 05/28/18 21:30 Lymph % (Auto) 13.9 % (20.0-40.0) L 05/28/18 21:30 Hubbard % (Auto) 11.7 % (0.0-10.0) H 05/28/18 21:30 Eos % (Auto) 1.4 % (0.0-4.0) 05/28/18 21:30 Baso % (Auto) 0.8 % (0.0-2.0) 05/28/18 21:30 Neut # (Auto) 3.5 K/uL (1.8-7.0) 05/28/18 21:30 Lymph # (Auto) 0.7 K/uL (1.0-4.3) L 05/28/18 21:30 Hubbard # (Auto) 0.6 K/uL (0.0-0.8) 05/28/18 21:30 Eos # (Auto) 0.1 K/uL (0.0-0.7) 05/28/18 21:30 Baso # (Auto) 0.0 K/uL (0.0-0.2) 05/28/18 21:30 ESR 10 mm/hr (0-30) 05/28/18 21:30 Sodium 130 mmol/l (132-148) L 06/03/18 07:30 Potassium 3.8 MMOL/L (3.6-5.0) 06/03/18 07:30 Chloride 96 mmol/L (98-107) L 06/03/18 07:30 Carbon Dioxide 27 mmol/L (22-30) 06/03/18 07:30 Anion Gap 11 (10-20) 06/03/18 07:30 BUN 22 mg/dl (7-17) H 06/03/18 07:30 Creatinine 0.9 mg/dl (0.7-1.2) 06/03/18 07:30 Est GFR ( Amer) > 60 06/03/18 07:30 Est GFR (Non-Af Amer) > 60 06/03/18 07:30 Random Glucose 89 mg/dL (65-105) 06/03/18 07:30 Serum Osmolality 276 mosm/kg (272-300) 05/29/18 04:55 Calcium 8.3 mg/dL (8.4-10.2) L 06/03/18 07:30 Total Bilirubin 0.3 mg/dl (0.2-1.3) 06/03/18 07:30 AST 27 U/L (14-36) 06/03/18 07:30 ALT 28 U/L (9-52) 06/03/18 07:30 Alkaline Phosphatase 72 U/L (38-126) 06/03/18 07:30 Troponin I < 0.0120 ng/mL (0.00-0.120) 06/02/18 11:10 NT-Pro-B Natriuret Pep 334 pg/ml (0-900) 06/02/18 06:00 Total Protein 6.4 G/DL (6.3-8.2) 06/03/18 07:30 Albumin 3.2 g/dL (3.5-5.0) L 06/03/18 07:30 Globulin 3.2 gm/dL (2.2-3.9) 06/03/18 07:30 Albumin/Globulin Ratio 1.0 (1.0-2.1) 06/03/18 07:30 TSH 3rd Generation 1.45 mIU/ML (0.46-4.68) 05/29/18 04:55 Cortisol AM Sample 1.9 ug/dL (4.46-22.7) L 05/31/18 05:35 Plasma Cortisol PM 22.3 ug/dL (1.7-14.1) H 05/31/18 14:20 Urine Color Straw (YELLOW) 05/28/18 21:42 Urine Clarity Clear (Clear) 05/28/18 21:42 Urine pH 7.0 (5.0-8.0) 05/28/18 21:42 Ur Specific [place] 1.008 (1.003-1.030) 05/28/18 21:42 Urine Protein Negative mg/dL (NEGATIVE) 05/28/18 21:42 Urine Glucose (UA) Neg mg/dL (Normal) 05/28/18 21:42 Urine Ketones Negative mg/dL (NEGATIVE) 05/28/18 21:42 Urine Blood Negative (NEGATIVE) 05/28/18 21:42 Urine Nitrate Negative (NEGATIVE) 05/28/18 21:42 Urine Bilirubin Negative (NEGATIVE) 05/28/18 21:42 Urine Urobilinogen 0.2-1.0 mg/dL (0.2-1.0) 05/28/18 21:42 Ur Leukocyte Esterase Neg Laly/uL (Negative) 05/28/18 21:42 Urine RBC (Auto) 1 /hpf (0-3) 05/28/18 21:42 Urine Microscopic WBC < 1 /hpf (0-5) 05/28/18 21:42 Urine Osmolality 277 mosm/kg (300-1000) L 05/29/18 04:55 Ur Random Sodium 35 meq/L 05/29/18 04:55 Ur Random Potassium 36.6 mmol/L 05/29/18 04:55 Complement C3 70.0 mg/dL (88.0-165.0) L 06/02/18 06:00 Complement C4 13.1 mg/dL (14.0-44.0) L 06/02/18 06:00 Attending/Attestation - Attestation I have personally seen and examined this patient.: Yes I have fully participated in the care of the patient.: Yes I have reviewed all pertinent clinical information, including history, physical exam and plan: Yes Notes (Text): 1. 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 Dizziness prob due to Hyponatremia and Polypharmacy - Physical therapy consulted- rec STACIE 3. Deconditioning - cont PT 4. Anxiety Dis -seen by [facility] - cont Ayush
== END 2018-06-03 22:44 | DRG 645 ==
LOC: H.ER 20:28 → H.ERHOLD 23:58 → H.MEDSURG1 05-29 11:18 → OBSVTOIN 05-30 14:53 → H.TEL 06-01 20:14
PROVIDERS: ADMIT Internal Medicine; ATTEND Internal Medicine
DX: E22.2 Syndrome of inappropriate secretion of antidiuretic hormone (principal); E03.9 Hypothyroidism, unspecified; I12.9 Hypertensive chronic kidney disease with stage 1 through stage 4 chronic kidney disease, or unspecified chronic kidney disease; N18.9 Chronic kidney disease, unspecified; M79.7 Fibromyalgia; M32.9 Systemic lupus erythematosus, unspecified; M06.9 Rheumatoid arthritis, unspecified; G40.909 Epilepsy, unspecified, not intractable, without status epilepticus; K21.9 Gastro-esophageal reflux disease without esophagitis; F06.30 Mood disorder due to known physiological condition, unspecified; F41.0 Panic disorder [episodic paroxysmal anxiety]; F32.9 Major depressive disorder, single episode, unspecified; M81.0 Age-related osteoporosis without current pathological fracture; K75.4 Autoimmune hepatitis; G47.33 Obstructive sleep apnea (adult) (pediatric); M15.9 Polyosteoarthritis, unspecified; R42 Dizziness and giddiness; T42.1X5A Adverse effect of iminostilbenes, initial encounter